=== PATIENT | male | born 1935 ===

== ENCOUNTER 2018-08-25 01:07 | Inpatient (IN) ==
[2018-08-25] MEDS ORDERED: SODIUM CHLORIDE 0.9% 1000ML 500 ML IV ONE (01:25)
[2018-08-25 01:44] LABS: Mean Corpuscular Hgb Conc 29.6 g/dL (32-36); Nucleated RBC % (auto) 2.7 %
[2018-08-25 01:58] LABS: INR 1.5 (0.9-1.1); Partial Thromboplastin Ratio 1.1; Partial Thromboplastin Time 30.5 Seconds (21.0-31.0); Prothrombin Time 14.6 Seconds (9.0-12.0)
[2018-08-25 02:03] LABS: Albumin Level 2.2 gm/dl (3.4-5.0); BUN Creatinine Ratio 28.1 (10-20); Bilirubin Direct 0.4 mg/dl (0-0.2); Calcium 8.1 mg/dl (8.5-10.1); Creatinine Clr Calc Pharmacy 26.5 ml/min; Est GFR (Non-African American) 25.1; Magnesium 2.7 mg/dl (1.8-2.4); Potassium 3.3 mmol/L (3.5-5.1)
[2018-08-25 02:14] LABS: ALC (manual) 0.76 K/uL (1.2-3.4); Anisocytosis Present; Basophils # (manual) 0.76 K/uL (0-0.2); Basophils % (manual) 5.2 %; Eosinophils # (manual) 0.76 K/uL (0-0.5); Eosinophils % (manual) 5.2 %; Hematocrit (blood only) 35.1 % (42-52); Hemoglobin 10.4 g/dL (14.0-18.0); Hypochromasia Present; Lymphocytes # (manual) 0.76 K/uL (1.2-3.4); Lymphocytes % (manual) 5.2 %; Mean Corpuscular Volume 74.7 fL (80-100); Monocytes # (manual) 0.76 K/uL (0.11-0.59); Monocytes % (manual) 5.2 %; Neutrophils % (manual) 79.2 %; Platelet Count 183 K/uL (130-400); Platelet Estimate Normal (Normal); RDW Coefficient of Variation 28.1 % (11.5-14.5); RDW Standard Deviation 77.2 fL (36.4-46.3); Schistocytes 1+; White Blood Count 14.66 K/uL (4.8-10.8)
[2018-08-25 02:19] LABS: Total Protein 7.3 gm/dl (6.4-8.2); Troponin I 0.899 ng/ml (0-0.045)
[2018-08-25] MEDS ORDERED: Heparin IV Standard *NO* Bolus IV ONE ×2 (02:31→08:37)
[2018-08-25] MEDS ORDERED: PIPERACILL/TAZOBAC CONSULT ACTIVE PRN ×2 (02:31→05:27)
[2018-08-25] MEDS ORDERED: VANCOMYCIN CONSULT ACTIVE PRN ×2 (02:31→05:27)
[2018-08-25] MEDS ORDERED: PIPERACILLIN/TAZOBACTAM 4.5 GM/120 ML BAG IV ONE (02:31)
[2018-08-25 02:32] LABS: Appearance Urine Clear (Clear); Bacteria Urine Automated Negative (Negative); Bilirubin Urine Negative (Negative); Blood Urine Negative (Negative); Color Urine Yellow; Glucose Urine UA Negative (Negative); Ketones Urine Negative (Negative); Leukocyte Esterase Urine Trace (Negative); Nitrite Urine Negative (Negative); Protein Urine Negative (Negative); RBC Urine Automated 0-4 /hpf (0-4); Specific Gravity Urine 1.014 (1.000-1.030); Urobilinogen Urine Negative (Negative)
[2018-08-25] MEDS ORDERED: VANCOMYCIN HCL 1,500 MG in SODIUM CHLORIDE 0.9% 500 ML IV SCH (02:45)
[2018-08-25] MEDS ORDERED: HEPARIN 25000 UNIT/500 ML D5W IV ONE (02:55)
[2018-08-25] MEDS ORDERED: ACETAMINOPHEN 325 MG TAB PO PRN ×2 (05:27)
[2018-08-25] MEDS ORDERED: TRAMADOL HCL 50 MG TABLET PO PRN (05:27)
[2018-08-25] MEDS ORDERED: MAGNESIUM HYDROXIDE SUSP 30 ML UDC PO PRN (05:27)
[2018-08-25] MEDS ORDERED: VANCOMYCIN HCL 1,000 MG in SODIUM CHLORIDE 0.9% 250 ML IV SCH (05:27)
[2018-08-25] MEDS ORDERED: ALUMINUM/MAGNESIUM SUSP 30 ML UDC PO PRN (05:27)
[2018-08-25] MEDS ORDERED: ALBUT/IPRATROP 3MG/0.5MG NEB 3 ML VIAL INH PRN (05:27)
[2018-08-25] MEDS ORDERED: HYDROCORTISONE ACETATE 25 MG SUPP PR PRN (05:27)
[2018-08-25] MEDS: RASPBERRY SYRUP 5 ML UDP PO SCH ×4 (06:53→23:55)
[2018-08-25] MEDS: VANCOMYCIN HCL 250 MG/5 ML SOLN PO SCH ×4 (06:53→23:55)
--- NOTE | 2018-08-25 07:01 | Emergency Department Note ---
Entered by Ling Trevino acting as a scribe for Randy Enriquez MD ED Provider Note Chief complaint: Leg swelling The patient is an 83 year old male presenting to the Emergency Department complaining of persistent leg swelling starting 1 day ago. EMS reports that the patient was complaining of diminished sensation in his left leg. They state that there is a wound on his left foot. They explained that the patient has been a patient at [facility] for rehabilitation of his left knee. The patient reports that his left leg is swollen. The HPI and ROS are limited due to AMS. ROS: The HPI and ROS are limited due to AMS. Past Medical History: Dysphagia, Bacterial enterocolitis, GERD, HTN, Prostate disorder, Dementia, Insomnia, Hypercholesteremia, Peripheral vascular disease. Past Surgical History: Unknown. Family History: Unknown. Social History: Feels safe at home. Home Medications: Acetaminophen 6590 mg PO, Eliquis 2.5 mg PO, Lipitor 80 mg PO, Aricept 5 mg PO, Finasteride 5 mg PO, Folic acid 1 mg PO, Lasix 80 mg PO, Anusol-HC 1 applic MT, Ipratropium albuterol 3 ml INH, Keppra 250 mg PO, Metoprolol tartrate 100 mg PO, Stress formula with Zinc 1 tab PO, Omeprazole 40 mg PO, Seroquel 12.5 mg PO, Senna-S 2 tab PO, Comfrey Saline 1 spray Intranasal. Tamsulosin 0.4 mg PO, Tramadol 50 mg PO, Vancomycin 250 mg PO. Allergies: NKDA Physical: Vitals: BP: 131/70, Pulse: 81, Respirations: 21, Temperature: 98.2, O2 Saturation: 100, Delivery: Nasal Cannula, 3 L/min. Exam: GENERAL: Patient is demented and in no acute distress. EYES: No scleral icterus, unremarkable pupils. ENT: Mucous membranes moist, no nasal congestion. NECK: No masses appreciated, no meningismus, trachea is midline. RESPIRATORY: No dyspnea. Clear to auscultation. No wheeze, no rhonchi. Decreased breath sounds in left lower lobe. Crackles throughout entire lung field. CARDIOVASCULAR: Regular rate and rhythm. No murmurs, rubs, gallops appreciated. GASTROINTESTINAL: Abdomen soft, non-tender, no peritonitis. Bowel sounds positive. No masses appreciated. : 4+ pitting edema of scrotum and penis. BACK: No midline tenderness, no CVA tenderness EXTREMITIES: Normal motion all extremities. Ulceration of left anterior ankle/upper foot. Blue discoloration of toes on left foot. Ulceration of left big toe with small amount of exudate. Greater than 5 seconds cap refill to top left foot. Good cap refill proximal to left ankle with intact popliteal pulses. NEUROLOGIC: Cranial nerves grossly intact. Demented. Awakens to commands. Uninte lligible speech. SKIN: No rash, no jaundice, no diaphoresis. ED Course: 0130: Prior Medical Record, Triage/Nursing Notes, Medications reviewed by Me. The patient was evaluated in room B2, and a complete history and physical examination were performed. 020: I discussed the patients case with Dr. Gruber Vascular surgeon who agrees to start the patient on Heparin. 0220: I discussed the patients case with Dr. Theodore [facility] hospitalist. He will evaluate the patient for further management. Labs reviewed and remarkable for elevated WBC, mild anemia, mild INR elevation, chronic renal insufficiency, modest lactate (2.0) Vital Signs reviewed and remarkable for mild hypoxia Imaging: X ray results are stated below per my interpretation: Chest: 1 view: Left elevated hemidiaphragm/effusion, right lower low infiltrate EKG: Per My Interpretation: indication sepsis: Sinus 81 bpm without ischemia nor ectopy. No previous for comparison. QTC 385 Consults: Hospitalist Blood pressure: Unremarkable Differentials: acute coronary syndrome, myocardial infarction, CVA, TIA, anemia, infection, pneumonia, UTI, pyelonephritis, poor nutrition, dehydration, electrolyte disturbance,hypoglycemia amongst other pathologies. Medical Decision Makin yr old male with dementia arrives for 6+ hours painful discolored left foot. Extensive PMH noted in transfer pprwrk from long-term. Ischemic foot on exam which looks better after warm blankets/elevation started. He is already on eliquis for PVD. He furthermore was found to have RLL infiltrate and elevated WBC for which started abx. Left leg ischemic with mostly just top/lateral left foot thus after discussing with Dr Bejarano will start IV heparin (no bolus as on Eliquis) and bring in for further monitoring and work up. With Cr level elevated I do not feel that CTA indicated. Reviewed with Hospitalist who will get arterial dopplers. He is breathing comfortably on NC O2. He is stable over his time here. No family here to discuss with. No history in system. Pt without history nor evidence of recent head injury. Impression: Ischemia of left lower extremity Pneumonia Critical Care Time: I have personally spent greater than 30 minutes of critical care time in the direct management of this patient. Left leg ischemia requiring IV Heparin infusion. This was a life/limb threatening event. This includes time spent evaluating patient, direct bedside care, chart review, placing orders, interpretation of diagnostic studies, discussion with consultants, as well as other required patient management activities. This 30 minutes is in excess of all separately billable procedures. Randy Enriquez MD The scribe's documentation has been prepared under my direction and personally reviewed by me in its entirety. I confirm that the note above accurately reflects all work, treatment, procedures, and medical decision making performed by me. Impression & Plan Ischemia of left lower extremity, Pneumonia Past Med/Surg History Medical History Peripheral vascular disease Hypercholesteremia Insomnia HTN (hypertension) Dementia Prostate disorder GERD (gastroesophageal reflux disease) Bacterial enterocolitis Dysphagia Social History Preferred Language: Uzbek Communication Ability: Impaired Tap Puller Required: No Beliefs That Will Affect Care: None Current Living Situation: Detention Feels Safe at Home: Yes Safety Concerns: Feels Safe At This Time Smoking Status: Unknown if ever smoked Results & Data Vital Signs Vital Signs - 24 hr 08/25/18 01:15 08/25/18 01:23 08/25/18 01:24 Temperature 36.8 C Temperature Source Oral Sepsis Recent Fever Within 48 Hours No Sepsis Action Taken by Nursing No Action Required Pulse Rate 82 80 81 Pulse Rate [Right Finger] Pulse Rate from SpO2 Sensor 81 80 Pulse Rhythm Regular Pulse Rhythm [Right Finger] Pulse Strength [Right Finger] Respiratory Rate 20 20 22 Respiratory Effort / Characteristics Non-Labored Respiratory Depth Normal Blood Pressure 116/79 116/79 Blood Pressure [Left Arm] Blood Pressure Mean 91 91 Blood Pressure Mean [Left Arm] Blood Pressure Position [Left Arm] Pulse Oximetry 99 98 98 Oxygen Delivery Method Nasal Cannula Oxygen Flow Rate 3 08/25/18 01:30 08/25/18 01:40 08/25/18 01:50 Temperature Temperature Source Sepsis Recent Fever Within 48 Hours Sepsis Action Taken by Nursing Pulse Rate 78 80 83 Pulse Rate [Right Finger] Pulse Rate from SpO2 Sensor 77 79 82 Pulse Rhythm Pulse Rhythm [Right Finger] Pulse Strength [Right Finger] Respiratory Rate 19 22 21 Respiratory Effort / Characteristics Respiratory Depth Blood Pressure Blood Pressure [Left Arm] Blood Pressure Mean Blood Pressure Mean [Left Arm] Blood Pressure Position [Left Arm] Pulse Oximetry 96 98 100 Oxygen Delivery Method Oxygen Flow Rate 08/25/18 02:00 08/25/18 02:10 08/25/18 02:18 Temperature Temperature Source Sepsis Recent Fever Within 48 Hours Sepsis Action Taken by Nursing Pulse Rate 87 83 80 Pulse Rate [Right Finger] Pulse Rate from SpO2 Sensor Pulse Rhythm Pulse Rhythm [Right Finger] Pulse Strength [Right Finger] Respiratory Rate 35 H 21 20 Respiratory Effort / Characteristics Respiratory Depth Blood Pressure 131/70 Blood Pressure [Left Arm] Blood Pressure Mean 90 Blood Pressure Mean [Left Arm] Blood Pressure Position [Left Arm] Pulse Oximetry Oxygen Delivery Method Oxygen Flow Rate 08/25/18 02:20 08/25/18 02:31 08/25/18 03:01 Temperature Temperature Source Sepsis Recent Fever Within 48 Hours Sepsis Action Taken by Nursing Pulse Rate 81 83 80 Pulse Rate [Right Finger] Pulse Rate from SpO2 Sensor Pulse Rhythm Pulse Rhythm [Right Finger] Pulse Strength [Right Finger] Respiratory Rate 21 21 22 Respiratory Effort / Characteristics Respiratory Depth Blood Pressure 134/77 125/91 Blood Pressure [Left Arm] Blood Pressure Mean 96 102 Blood Pressure Mean [Left Arm] Blood Pressure Position [Left Arm] Pulse Oximetry Oxygen Delivery Method Oxygen Flow Rate 08/25/18 03:31 08/25/18 04:01 08/25/18 04:38 Temperature Temperature Source Sepsis Recent Fever Within 48 Hours Sepsis Action Taken by Nursing Pulse Rate 79 79 75 Pulse Rate [Right Finger] Pulse Rate from SpO2 Sensor 78 Pulse Rhythm Pulse Rhythm [Right Finger] Pulse Strength [Right Finger] Respiratory Rate 19 19 18 Respiratory Effort / Characteristics Respiratory Depth Blood Pressure 131/72 132/78 125/82 Blood Pressure [Left Arm] Blood Pressure Mean 91 96 Blood Pressure Mean [Left Arm] Blood Pressure Position [Left Arm] Pulse Oximetry 97 96 95 Oxygen Delivery Method Nasal Cannula Nasal Cannula Nasal Cannula Oxygen Flow Rate 3 3 3 08/25/18 06:07 Temperature 36.7 C Temperature Source Oral Sepsis Recent Fever Within 48 Hours Sepsis Action Taken by Nursing Pulse Rate Pulse Rate [Right Finger] 82 Pulse Rate from SpO2 Sensor Pulse Rhythm Pulse Rhythm [Right Finger] Regular Pulse Strength [Right Finger] Normal Respiratory Rate 14 Respiratory Effort / Characteristics Respiratory Depth Blood Pressure Blood Pressure [Left Arm] 144/78 H Blood Pressure Mean Blood Pressure Mean [Left Arm] 100 Blood Pressure Position [Left Arm] Lying Pulse Oximetry 98 Oxygen Delivery Method Nasal Cannula Oxygen Flow Rate 2 Home Medications Current Medication List: was personally reviewed by me Laboratory Data Attestation: I reviewed the patient's lab results. Result diagrams: 08/25/18 01:33 08/25/18 01:33 Lab Results 08/25/18 08/25/18 08/25/18 Range/Units 01:33 01:33 01:33 WBC 14.66 H (4.8-10.8) K/uL RBC 4.70 (4.7-6.1) M/uL Hgb 10.4 L (14.0-18.0) g/dL Hct 35.1 L (42-52) % MCV 74.7 L (80-100) fL MCH 22.1 L (25-34) pg MCHC 29.6 L (32-36) g/dL RDW Std Deviation 77.2 H (36.4-46.3) fL RDW Coeff of Eulalia 28.1 H (11.5-14.5) % Plt Count 183 (130-400) K/uL Absolute Nucleated RBC 0.40 H (0-0) K/uL Nucleated RBC % (auto) 2.7 % Neutrophils % (Manual) 79.2 % Lymphocytes % (Manual) 5.2 % Monocytes % (Manual) 5.2 % Eosinophils % (Manual) 5.2 % Basophils % (Manual) 5.2 % Neutrophils # (Manual) 11.61 H (1.4-6.5) K/uL Total Absolute Neuts 11.61 H (1.4-6.5) K/uL Lymphocytes # (Manual) 0.76 L (1.2-3.4) K/uL Total Abs Lymphocytes 0.76 L (1.2-3.4) K/uL Monocytes # (Manual) 0.76 H (0.11-0.59) K/uL Eosinophils # (Manual) 0.76 H (0-0.5) K/uL Basophils # (Manual) 0.76 H (0-0.2) K/uL Platelet Estimate Normal (Normal) Hypochromasia Present Anisocytosis Present Schistocytes 1+ PT 14.6 H (9.0-12.0) Seconds INR 1.5 H (0.9-1.1) APTT 30.5 (21.0-31.0) Seconds PTT Ratio 1.1 Sodium 136 (136-145) mmol/L Potassium 3.3 L (3.5-5.1) mmol/L Chloride 98 (98-107) mmol/L Carbon Dioxide 34 H (21-32) mmol/L Anion Gap 4.0 (3-11) BUN 65 H (7-18) mg/dl Creatinine 2.32 H (0.6-1.4) mg/dl Est Cr Clr Drug Dosing 26.5 ml/min Est GFR ( Amer) 29.0 Est GFR (Non-Af Amer) 25.1 BUN/Creatinine Ratio 28.1 H (10-20) Glucose 108 H (70-99) mg/dl Lactate (0.4-2.0) mmol/L Calcium 8.1 L (8.5-10.1) mg/dl Magnesium 2.7 H (1.8-2.4) mg/dl Total Bilirubin 1.0 (0.2-1) mg/dl Direct Bilirubin 0.4 H (0-0.2) mg/dl AST 44 H (15-37) U/L ALT 18 (12-78) U/L Alkaline Phosphatase 147 H (45-117) U/L Troponin I 0.899 H* (0-0.045) ng/ml Total Protein 7.3 (6.4-8.2) gm/dl Albumin 2.2 L (3.4-5.0) gm/dl Urine Color Urine Appearance (Clear) Urine pH (4.5-7.5) Ur Specific [place] (1.000-1.030) Urine Protein (Negative) Urine Glucose (UA) (Negative) Urine Ketones (Negative) Urine Blood (Negative) Urine Nitrite (Negative) Urine Bilirubin (Negative) Urine Urobilinogen (Negative) Ur Leukocyte Esterase (Negative) Urine WBC (Auto) (0-5) /hpf Urine RBC (Auto) (0-4) /hpf U Hyaline Cast (Auto) (0-5) /lpf U Epithel Cells (Auto) (0-5) /lpf Urine Bacteria (Auto) (Negative) 08/25/18 08/25/18 08/25/18 Range/Units 01:33 02:20 06:45 WBC (4.8-10.8) K/uL RBC (4.7-6.1) M/uL Hgb (14.0-18.0) g/dL Hct (42-52) % MCV (80-100) fL MCH (25-34) pg MCHC (32-36) g/dL RDW Std Deviation (36.4-46.3) fL RDW Coeff of Eulalia (11.5-14.5) % Plt Count (130-400) K/uL Absolute Nucleated RBC (0-0) K/uL Nucleated RBC % (auto) % Neutrophils % (Manual) % Lymphocytes % (Manual) % Monocytes % (Manual) % Eosinophils % (Manual) % Basophils % (Manual) % Neutrophils # (Manual) (1.4-6.5) K/uL Total Absolute Neuts (1.4-6.5) K/uL Lymphocytes # (Manual) (1.2-3.4) K/uL Total Abs Lymphocytes (1.2-3.4) K/uL Monocytes # (Manual) (0.11-0.59) K/uL Eosinophils # (Manual) (0-0.5) K/uL Basophils # (Manual) (0-0.2) K/uL Platelet Estimate (Normal) Hypochromasia Anisocytosis Schistocytes PT (9.0-12.0) Seconds INR (0.9-1.1) APTT 43.3 H (21.0-31.0) Seconds PTT Ratio 1.6 Sodium (136-145) mmol/L Potassium (3.5-5.1) mmol/L Chloride (98-107) mmol/L Carbon Dioxide (21-32) mmol/L Anion Gap (3-11) BUN (7-18) mg/dl Creatinine (0.6-1.4) mg/dl Est Cr Clr Drug Dosing ml/min Est GFR ( Amer) Est GFR (Non-Af Amer) BUN/Creatinine Ratio (10-20) Glucose (70-99) mg/dl Lactate 2.0 (0.4-2.0) mmol/L Calcium (8.5-10.1) mg/dl Magnesium (1.8-2.4) mg/dl Total Bilirubin (0.2-1) mg/dl Direct Bilirubin (0-0.2) mg/dl AST (15-37) U/L ALT (12-78) U/L Alkaline Phosphatase (45-117) U/L Troponin I (0-0.045) ng/ml Total Protein (6.4-8.2) gm/dl Albumin (3.4-5.0) gm/dl Urine Color Yellow Urine Appearance Clear (Clear) Urine pH 5.0 (4.5-7.5) Ur Specific [place] 1.014 (1.000-1.030) Urine Protein Negative (Negative) Urine Glucose (UA) Negative (Negative) Urine Ketones Negative (Negative) Urine Blood Negative (Negative) Urine Nitrite Negative (Negative) Urine Bilirubin Negative (Negative) Urine Urobilinogen Negative (Negative) Ur Leukocyte Esterase Trace H (Negative) Urine WBC (Auto) 1-5 (0-5) /hpf Urine RBC (Auto) 0-4 (0-4) /hpf U Hyaline Cast (Auto) 1-5 (0-5) /lpf U Epithel Cells (Auto) 10-20 H (0-5) /lpf Urine Bacteria (Auto) Negative (Negative) Administered Medications Raspberry (Raspberry) 5 ml PO Q6 [facility] Stop: 09/08/18 05:59 Last Admin: 08/25/18 06:53 Dose: 5 ml Documented by: [id number] Vancomycin HCl (Vancomycin Hcl) 250 mg PO Q6 [facility] Stop: 09/04/18 05:59 Last Admin: 08/25/18 06:53 Dose: 250 mg Documented by: [id number] Discontinued Medications Heparin Sodium/Dextrose () 1 ea IV ONE ONE; Protocol Stop: 08/25/18 02:32 Last Admin: 08/25/18 03:57 Dose: Not Given Documented by: [id number] Heparin Sodium/Dextrose (Heparin Sodium/Dextrose) Confirm Administered Dose 25,000 units IV .STK-MED ONE Stop: 08/25/18 02:56 Last Admin: 08/25/18 03:16 Dose: 1,500 units Documented by: [id number] Cosigned by: [id number] Sodium Chloride (Nss 1000ml) 500 mls @ 999 mls/hr IV .Q31M ONE Stop: 08/25/18 01:55 Last Infusion: 08/25/18 02:17 Dose: 0 mls/hr Documented by: [id number] Admin: 08/25/18 01:41 Dose: 999 mls/hr Documented by: [id number] Piperacillin Sod/Tazobactam Sod (Zosyn) 4.5 gm in 120 mls @ 240 mls/hr IV NOW ONE Stop: 08/25/18 03:00 Last Infusion: 08/25/18 03:56 Dose: 0 mls/hr Documented by: [id number] Admin: 08/25/18 03:16 Dose: 240 mls/hr Documented by: [id number] Vancomycin HCl 1,500 mg/ (Sodium Chloride) 530 mls @ 200 mls/hr IV UD KASHIF; Protocol Stop: 08/27/18 02:44 Last Admin: 08/25/18 03:15 Dose: 200 mls/hr Documented by: [id number] Blood Pressure Blood Pressure Findings: Normal blood pressure Blood Pressure Disposition: further management by hospitalist Discharge Plan Visit Data *Final* Discharge Date/Time: 08/25/18 04:38 Chief Complaint: Swelling/Edema to Extremity Stated Complaint: SWOLLEN LEG/GENITALS ED Provider: Randy Enriquez Discharge Problem: Ischemia of left lower extremity, Pneumonia Patient Disposition: Admitted As Inpatient Discharge Instructions Interventions: ED Discharge Assessment Last Done: 08/25/18 04:38 Discharge Problem: Pneumonia Qualifiers: Pneumonia type: due to unspecified organism Laterality: right Lung location: lower lobe of lung Qualified Code(s): J18.1 - Lobar pneumonia, unspecified organism The scribe's documentation has been prepared under my direction and personally reviewed by me in its entirety. I confirm that the note above accurately reflec ts all work, treatment, procedures, and medical decision making performed by me.
[2018-08-25 07:02] LABS: Partial Thromboplastin Ratio 1.6; Partial Thromboplastin Time 43.3 Seconds (21.0-31.0)
--- NOTE | 2018-08-25 07:46 | History & Physical Report ---
Date of Service August 25, 2018 Assessment & Plan (1) Ischemia of left lower extremity: Peripheral arterial disease/presumptive ischemia of left lower extremity/cellulitis left lower extremity- Place on vancomycin IV and Zosyn IV. Order lower extremity arterial Dopplers. We will hold Eliquis, and start heparin infusion, per request of Dr. Bejarano, who will be consulted. Consult infectious disease. Present on Admission?: Yes (2) Cellulitis of left lower extremity: As above. Present on Admission?: Yes (3) Peripheral vascular disease: As above. Present on Admission?: Yes (4) Pneumonia: Pneumonia/pleural effusion- Treat with antibiotics as above. Present on Admission?: Yes (5) NSTEMI (non-ST elevated myocardial infarction): Troponin on admission was 0.899. No acute EKG changes. Order complete ECHO. Supply demand mismatch vs. primary process. Consult Cardiology. Present on Admission?: Yes (6) Hypercholesteremia: Continue atorvastatin 80 mg at bedtime Present on Admission?: Yes (7) Dementia: Continue Seroquel, melatonin, Keppra and Aricept. Present on Admission?: Yes (8) HTN (hypertension): Hypertension/CHF/venous insufficiency- Change furosemide 80 mg p.o. twice daily to albumin with furosemide twice daily. Present on Admission?: Yes (9) GERD (gastroesophageal reflux disease): On omeprazole 40 mg p.o. daily as outpatient, continue or change to generic equivalent. Present on Admission?: Yes (10) C. difficile colitis: Patient has been on vancomycin 250 mg p.o. 4 times daily, and will be continued. Present on Admission?: Yes History of Present Illness Chief Complaint: The patient presents to the emergency department with shortness of breath, worsening lower extremity swelling that began a few days ago. EMS reports that the patient had decreased sensation of left lower extremity, but there is a wound on his left foot, and is red and painful. Primary Care Provider: Page Richardsmirian The patient is an 83-year-old male, presently residing at [facility] for rehab of his left knee, when he was found to have swelling of lower extremities, with redness and discomfort associated with a wound of left lower extremity. The patient is not able to contribute to his HPI or review of systems, due to altered mental status. Allergies Allergy/AdvReac Type Severity Reaction Status Date / Time No Known Allergies Allergy Unverified 08/25/18 02:56 Home Medications Home Medications Medication Instructions Recorded Confirmed Type Saccharomyces boulardii [Probiotic 250 mg PO DAILY 08/25/18 08/25/18 History (S.boulardii)] acetaminophen 650 mg PO Q6H PRN 08/25/18 08/25/18 History acetaminophen 650 mg PO Q6H PRN MDD 3G/24HRS 08/25/18 08/25/18 History apixaban [Eliquis] 2.5 mg PO BID 08/25/18 08/25/18 History atorvastatin [Lipitor] 80 mg PO HS 08/25/18 08/25/18 History donepezil [Aricept] 5 mg PO HS 08/25/18 08/25/18 History finasteride 5 mg PO DAILY 08/25/18 08/25/18 History folic acid 1 mg PO DAILY 08/25/18 08/25/18 History furosemide [Lasix] 80 mg PO BID 08/25/18 08/25/18 History hydrocortisone [Anusol-HC] 1 applic [place] Q12 PRN 08/25/18 08/25/18 History hydrocortisone acetate [Anusol-HC] 25 mg [place] Q12 PRN 08/25/18 08/25/18 History ipratropium-albuterol 3 ml INHALATION Q6 PRN 08/25/18 08/25/18 History levetiracetam [Keppra] 250 mg PO BID 08/25/18 08/25/18 History melatonin 3 mg PO HS 08/25/18 08/25/18 History metoprolol tartrate 100 mg PO BID 08/25/18 08/25/18 History multivit,stress formula-zinc 1 tab PO DAILY 08/25/18 08/25/18 History [Stress Formula with Zinc] omeprazole 40 mg PO DAILY 08/25/18 08/25/18 History protein hydrolysate,milk [Liquid 30 ml PO BID 08/25/18 08/25/18 History Protein Fortifier] quetiapine [Seroquel] 12.5 mg PO HS 08/25/18 08/25/18 History sennosides-docusate sodium 2 tab PO . 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 Physical Exam Physical Exam: The patient is lethargic, normocephalic and atraumatic, lying in bed and in no acute distress. HEENT--PERRL, EOMI, mucous membranes and oropharynx dry. Neck--supple. No JVD. No bruits. Thyroid normal, trachea midline, no adenopathy. Heart--normal S1 and S2. No murmurs, rubs or gallops. Lungs--decreased breath sounds throughout. Abdomen--normal bowel sounds and soft. Nontender. Nondistended. Extremities--diminished pulses bilaterally. Dermatologic--wound at the base of the left leg, with erythema involving foot and entire tibial shaft up to anterior tibial tuberosity Neurologic--limited exam Rheumatologic--limited due to pain. Psychiatric--lethargic and confused. Results & Data Vital Signs (Past 12 Hours) Vital Signs Temp Pulse Pulse Resp BP BP Pulse Ox 08/25/18 07:04 97.9 F 84 20 150/80 H 98 08/25/18 06:07 98.1 F 82 14 144/78 H 98 08/25/18 04:38 75 18 125/82 95 08/25/18 04:01 79 19 132/78 96 08/25/18 03:31 79 19 131/72 97 08/25/18 03:01 80 22 125/91 08/25/18 02:31 83 21 134/77 08/25/18 02:20 81 21 05/05/19 02:18 80 20 131/70 08/25/18 02:10 83 21 08/25/18 02:00 87 35 H 08/25/18 01:50 83 21 100 08/25/18 01:40 80 22 98 08/25/18 01:30 78 19 96 08/25/18 01:24 81 22 98 08/25/18 01:23 98.2 F 80 20 116/79 98 08/25/18 01:15 82 20 116/79 99 Laboratory Results Laboratory Results WBC 14.66 K/uL (4.8-10.8) H 08/25/18 01:33 RBC 4.70 M/uL (4.7-6.1) 08/25/18 01:33 Hgb 10.4 g/dL (14.0-18.0) L 08/25/18 01:33 Hct 35.1 % (42-52) L 08/25/18 01:33 MCV 74.7 fL (80-100) L 08/25/18 01:33 MCH 22.1 pg (25-34) L 08/25/18 01:33 MCHC 29.6 g/dL (32-36) L 08/25/18 01:33 RDW Std Deviation 77.2 fL (36.4-46.3) H 08/25/18 01:33 RDW Coeff of Eul[place] 28.1 % (11.5-14.5) H 08/25/18 01:33 Plt Count 183 K/uL (130-400) 08/25/18 01:33 Absolute Nucleated RBC 0.40 K/uL (0-0) H 08/25/18 01:33 Nucleated RBC % (auto) 2.7 % 08/25/18 01:33 Neutrophils % (Manual) 79.2 % 08/25/18 01:33 Lymphocytes % (Manual) 5.2 % 08/25/18 01:33 Monocytes % (Manual) 5.2 % 08/25/18 01:33 Eosinophils % (Manual) 5.2 % 08/25/18 01:33 Basophils % (Manual) 5.2 % 08/25/18 01:33 Neutrophils # (Manual) 11.61 K/uL (1.4-6.5) H 08/25/18 01:33 Total Absolute Neuts 11.61 K/uL (1.4-6.5) H 08/25/18 01:33 Lymphocytes # (Manual) 0.76 K/uL (1.2-3.4) L 08/25/18 01:33 Total Abs Lymphocytes 0.76 K/uL (1.2-3.4) L 08/25/18 01:33 Monocytes # (Manual) 0.76 K/uL (0.11-0.59) H 08/25/18 01:33 Eosinophils # (Manual) 0.76 K/uL (0-0.5) H 08/25/18 01:33 Basophils # (Manual) 0.76 K/uL (0-0.2) H 08/25/18 01:33 Platelet Estimate Normal (Normal) 08/25/18 01:33 Hypochromasia Present 08/25/18 01:33 Anisocytosis Present 08/25/18 01:33 Schistocytes 1+ 08/25/18 01:33 PT 14.6 Seconds (9.0-12.0) H 08/25/18 01:33 INR 1.5 (0.9-1.1) H 08/25/18 01:33 APTT 43.3 Seconds (21.0-31.0) H 08/25/18 06:45 PTT Ratio 1.6 08/25/18 06:45 Sodium 136 mmol/L (136-145) 08/25/18 01:33 Potassium 3.3 mmol/L (3.5-5.1) L 08/25/18 01:33 Chloride 98 mmol/L (98-107) 08/25/18 01:33 Carbon Dioxide 34 mmol/L (21-32) H 08/25/18 01:33 Anion Gap 4.0 (3-11) 08/25/18 01:33 BUN 65 mg/dl (7-18) H 08/25/18 01:33 Creatinine 2.32 mg/dl (0.6-1.4) H 08/25/18 01:33 Est Cr Clr Drug Dosing 26.5 ml/min 08/25/18 01:33 Est GFR ( Amer) 29.0 08/25/18 01:33 Est GFR (Non-Af Amer) 25.1 08/25/18 01:33 BUN/Creatinine Ratio 28.1 (10-20) H 08/25/18 01:33 Glucose 108 mg/dl (70-99) H 08/25/18 01:33 Lactate 2.0 mmol/L (0.4-2.0) 08/25/18 01:33 Calcium 8.1 mg/dl (8.5-10.1) L 08/25/18 01:33 Magnesium 2.7 mg/dl (1.8-2.4) H 08/25/18 01:33 Total Bilirubin 1.0 mg/dl (0.2-1) 08/25/18 01:33 Direct Bilirubin 0.4 mg/dl (0-0.2) H 08/25/18 01:33 AST 44 U/L (15-37) H 08/25/18 01:33 ALT 18 U/L (12-78) 08/25/18 01:33 Alkaline Phosphatase 147 U/L (45-117) H 08/25/18 01:33 Troponin I 0.899 ng/ml (0-0.045) H* 08/25/18 01:33 Total Protein 7.3 gm/dl (6.4-8.2) 08/25/18 01:33 Albumin 2.2 gm/dl (3.4-5.0) L 08/25/18 01:33 Urine Color Yellow 08/25/18 02:20 Urine Appearance Clear (Clear) 08/25/18 02:20 Urine pH 5.0 (4.5-7.5) 08/25/18 02:20 Ur Specific [place] 1.014 (1.000-1.030) 08/25/18 02:20 Urine Protein Negative (Negative) 08/25/18 02:20 Urine Glucose (UA) Negative (Negative) 08/25/18 02:20 Urine Ketones Negative (Negative) 08/25/18 02:20 Urine Blood Negative (Negative) 08/25/18 02:20 Urine Nitrite Negative (Negative) 08/25/18 02:20 Urine Bilirubin Negative (Negative) 08/25/18 02:20 Urine Urobilinogen Negative (Negative) 08/25/18 02:20 Ur Leukocyte Esterase Trace (Negative) H 08/25/18 02:20 Urine WBC (Auto) 1-5 /hpf (0-5) 08/25/18 02:20 Urine RBC (Auto) 0-4 /hpf (0-4) 08/25/18 02:20 U Hyaline Cast (Auto) 1-5 /lpf (0-5) 08/25/18 02:20 U Epithel Cells (Auto) 10-20 /lpf (0-5) H 08/25/18 02:20 Urine Bacteria (Auto) Negative (Negative) 08/25/18 02:20 Code Status & VTE Plan Code Status DNR VTE Prophylaxis Plan VTE Prophylaxis will be ordered: Yes (1) Pneumonia Laterality: right Lung location: lower lobe of lung Pneumonia type: due to unspecified organism Qualified Code(s): J18.1 - Lobar pneumonia, unspecified organism
--- NOTE | 2018-08-25 07:57 | XRay Report ---
LEFT ANKLE 3 VIEWS CLINICAL HISTORY: Left anterior ankle wound. FINDINGS: 3 views of the left ankle are obtained. No prior studies are available for comparison at th e time of dictation. The skeletal structures are osteopenic. No fracture is seen. The ankle mortise i s intact. Moderate arthritic changes seen at the tibiotalar articulation. Pes planus is suspected. Th ere is no bony erosion or periostitis. There are dorsal and plantar calcaneal enthesophytes. There is no ankle joint effusion. Soft tissue edema is present around the ankle. Subcutaneous gas is seen ant eriorly and suggests wound. There is atherosclerotic calcification of the regional arteries. No radio dense foreign body is identified. IMPRESSION: 1. No acute bony abnormality is identified. 2. Soft tissue edema is identified with an anterior wound. 3. No radiodense foreign body is seen. Electronically signed by: Ezequiel Prince M.D. 08/25/2018 7:55 AM
[2018-08-25] MEDS: PANTOprazole 40 MG TAB PO SCH (08:09)
[2018-08-25] MEDS: FINASTERIDE 5 MG TAB PO SCH (08:09)
[2018-08-25] MEDS: FOLIC ACID 1 MG TAB PO SCH (08:09)
[2018-08-25] MEDS: levETIRAcetam 250 MG TAB PO SCH ×2 (08:09→20:43)
[2018-08-25] MEDS: CEROVITE ADV FORMULA TAB PO SCH (08:09)
--- NOTE | 2018-08-25 08:33 | XRay Report ---
SINGLE VIEW CHEST CLINICAL HISTORY: Lower extremity ischemia. FINDINGS: An AP, portable, upright chest radiograph is obtained. No prior studies are available for c omparison at the time of dictation. The examination is significantly degraded by portable technique a nd patient rotation. The heart is enlarged and there is atherosclerotic calcification of the thoraci c aorta. There is mild pulmonary vascular congestion. Calcified mediastinal and hilar nodes are noted . There are small pleural effusions with dense bibasilar consolidation, left greater than right. No p neumothorax is seen. The skeletal structures are osteopenic. The bony thorax is grossly intact. IMPRESSION: 1. Cardiomegaly with mild pulmonary vascular congestion. 2. There are small pleural effusions with dense bibasilar airspace consolidation, left greater than r ight. The appearance suggests pneumonia/aspiration pneumonitis. Clinical correlation will be required and radiographic follow-up to resolution is recommended. Electronically signed by: Ezequiel Prince M.D. 08/25/2018 8:32 AM
[2018-08-25] MEDS ORDERED: POTASSIUM CHLORIDE 20 MEQ TABCR PO STA (08:34)
[2018-08-25] MEDS ORDERED: METOPROLOL TARTRATE 50 MG TAB PO SCH (09:00)
[2018-08-25] MEDS: ALBUMIN 25% 50 ML with FUROSEMIDE 40 MG IV SCH ×2 (09:15→20:40)
[2018-08-25] MEDS: PIPERACILLIN/TAZOBACTAM 3.375 GM in DEXTROSE 5% 100 ML IV SCH ×3 (09:15→23:54)
[2018-08-25] MEDS: Heparin Adult STANDARD Wt-Based Dextrose 5% 25,000 units/500 mL IV SCH ×2 (09:17→20:44)
[2018-08-25] MEDS: SODIUM CHLORIDE 0.65% NA SOLN 45 ML (OCEAN) SCH (09:41)
--- NOTE | 2018-08-25 09:49 | Consultation ---
Date of Consultation August 25, 2018 Assessment & Plan (1) Ischemia of left lower extremity: This patient has severe ischemia in the left foot. This was confirmed with noninvasives which shows infrapopliteal artery occlusions. At this point with his possible STEMI he is not a good candidate for operative intervention. Endovascular approach is also guarded being that he is in chronic renal insufficiency. To intervene would possibly cause him to require dialysis.\ I discussed this with his son Jairon. At this point we decided on no intervention either endovascular or open. He does realize that he may end up with an amputation of his left lower extremity. Thank you very much for letting us participate in the care of this patient. History of Present Illness Reason for Consultation: Right foot ischemia Attending Physician: Meagan Claros MD History of Present Illness this is an 83-year-old male who presented with ischemic left foot. He also had increased troponins at the time of admission. He does claim that he was walking prior to his admission to the hospital. He claims that the pain is been going on for some time. It does keep him awake at night. He is not sure if he had any procedures done on the arteries of the left leg in the past. Denies any symptoms of the right lower extremity. Allergies Allergy/AdvReac Type Severity Reaction Status Date / Time No Known Allergies Allergy Unverified 08/25/18 02:56 Home Medications Home Medications Medication Instructions Recorded Confirmed Type Saccharomyces boulardii [Probiotic 250 mg PO DAILY 08/25/18 08/25/18 History (S.boulardii)] acetaminophen 650 mg PO Q6H PRN 08/25/18 08/25/18 History acetaminophen 650 mg PO Q6H PRN MDD 3G/24HRS 08/25/18 08/25/18 History apixaban [Eliquis] 2.5 mg PO BID 08/25/18 08/25/18 History atorvastatin [Lipitor] 80 mg PO HS 08/25/18 08/25/18 History donepezil [Aricept] 5 mg PO HS 08/25/18 08/25/18 History finasteride 5 mg PO DAILY 08/25/18 08/25/18 History folic acid 1 mg PO DAILY 08/25/18 08/25/18 History furosemide [Lasix] 80 mg PO BID 08/25/18 08/25/18 History hydrocortisone [Anusol-HC] 1 applic [place] Q12 PRN 08/25/18 08/25/18 History hydrocortisone acetate [Anusol-HC] 25 mg [place] Q12 PRN 08/25/18 08/25/18 History ipratropium-albuterol 3 ml INHALATION Q6 PRN 08/25/18 08/25/18 History levetiracetam [Keppra] 250 mg PO BID 08/25/18 08/25/18 History melatonin 3 mg PO HS 08/25/18 08/25/18 History metoprolol tartrate 100 mg PO BID 08/25/18 08/25/18 History multivit,stress formula-zinc 1 tab PO DAILY 08/25/18 08/25/18 History [Stress Formula with Zinc] omeprazole 40 mg PO DAILY 08/25/18 08/25/18 History protein hydrolysate,milk [Liquid 30 ml PO BID 08/25/18 08/25/18 History Protein Fortifier] quetiapine [Seroquel] 12.5 mg PO HS 08/25/18 08/25/18 History sennosides-docusate sodium 2 tab PO . 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 Physical Exam Constitutional: WD/WN, vitals as above Respiratory: normal respiratory effort, lungs clear to auscultation Cardiovascular: Rate/Rhythm: regular rate and regular rhythm Vessels: femoral pulses present (Bilateral), posterior tibial pulses present (Not palpable) and dorsalis pedis pulses present (Doppler on the right nonpalpable on the left) Extremities: normal capillary refill ( markedly prolonged on the left ) Gastrointestinal (Abdomen): Inspection/Auscultation: abdomen normal to inspection Percussion/Palpation: no pulsatile mass Musculoskeletal: Extremities: + cyanosis (Left foot) Ulceration present on the dorsum of the left foot. Neurologic: awake Motor/Sensory: normal movement Psychiatric: Orientation: alert; + not oriented x 3 Results & Data Vital Signs (Past 12 Hours) Vital Signs Temp Pulse Pulse Resp BP BP Pulse Ox 08/25/18 07:04 36.6 C 84 20 150/80 H 98 08/25/18 06:07 36.7 C 82 14 144/78 H 98 08/25/18 04:38 75 18 125/82 95 08/25/18 04:01 79 19 132/78 96 08/25/18 03:31 79 19 131/72 97 08/25/18 03:01 80 22 125/91 08/25/18 02:31 83 21 134/77 08/25/18 02:20 81 21 08/25/18 02:18 80 20 131/70 08/25/18 02:10 83 21 08/25/18 02:00 87 35 H 08/25/18 01:50 83 21 100 08/25/18 01:40 80 22 98 08/25/18 01:30 78 19 96 08/25/18 01:24 81 22 98 08/25/18 01:23 36.8 C 80 20 116/79 98 08/25/18 01:15 82 20 116/79 99
--- NOTE | 2018-08-25 10:07 | Ultrasound Report ---
ULTRASOUND BILATERAL LOWER EXTREMITY ARTERIAL CLINICAL HISTORY: Lower extremities cellulitis. COMPARISON STUDY: No priors. TECHNIQUE: Real-time, grayscale, and color Doppler sonography of the arteries of the right and left l ower extremity was performed from the inguinal crease to the foot. Ankle-brachial indices were not pe rformed due to lack of patient cooperation. FINDINGS: Cardiac pulsations appear irregularly irregular suggesting arrhythmia. Right lower extremity: Mild atherosclerotic plaque is identified. The right common femoral artery is patent and demonstrates triphasic arterial waveforms. Velocities in the right common femoral artery m easure up to 58 cm/s. There are triphasic arterial waveforms throughout the right superficial femoral artery with velocities measuring up to 81 cm/s. The profundus femoris artery is patent with velociti es measuring up to 38 cm/s. There are triphasic arterial waveforms in the popliteal artery with veloc ities measuring up to 96 cm/s. Atherosclerotic plaque is noted throughout the calf arteries. There is three-vessel runoff to the foot. Velocities within the calf arteries measure up to 80 cm/s. The dors alda pedis artery is patent with velocities measuring up to 105 cm/s. Left lower extremity: Mild sclerotic plaque is identified. The common femoral artery is patent with t riphasic waveforms and velocities measuring up to 73 cm/s. The profunda femoris arteries patent with velocities measuring up to 62 cm/s. There are triphasic waveforms seen throughout the superficial fem oral artery with velocities measuring up to 74 cm/s. The popliteal artery is patent and demonstrates triphasic arterial waveforms. Velocities in the popliteal artery measure up to 58 cm/s. Atherosclerot ic plaque an irregularity is seen throughout the calf arteries. There is thrombosis of the posterior tibial artery. The peroneal artery appears patent with velocities measuring up to 56 cm/s. The anteri or tibial artery is patent with velocities measuring up to 61 cm/s. The majority of the dorsalis pedi s artery is thrombosed. A portion of the dorsalis pedis artery appears to demonstrate retrograde flow . IMPRESSION: 1. There is no sonographic evidence of high-grade stenosis or focal vessel cut off seen throughout th e arteries of the right lower extremity. 2. 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 3. Atherosclerotic plaque is seen throughout the calf vessels bilaterally. 4. Cardiac pulsations appear irregularly irregular suggesting arrhythmia. Clinical and EKG correlatio n will be required. Electronically signed by: Ezequiel Prince M.D. 08/25/2018 10:06 AM
--- NOTE | 2018-08-25 12:37 | Cardiology Consultation ---
Date of Consultation August 25, 2018 Assessment & Plan (1) Elevated troponin: He has a minimally elevated troponin, I am almost certain that he has coronary artery disease and this probably represents demand ischemia. There is no evidence this is an acute myocardial infarction (either non-ST segment elevation or ST segment elevation) either by electrocardiographic criteria or the enzyme pattern. I agree with trending troponins but at this point I would not consider invasive evaluation. (2) CHF (congestive heart failure): He presented in congestive heart failure, his BNP is elevated, he has pleural and pericardial effusions and edema. I would recommend diuresis. I do not think this is new. (3) Ischemic cardiomyopathy: Based on his echocardiogram I believe he has an ischemic cardiomyopathy. His ejection fraction is reduced and he has wall motion abnormalities consistent with prior infarction. I do not know if this is known before but he is on good doses of metoprolol, he is on metoprolol tartrate and it would be better to have him on metoprolol succinate but that is a minor change and I would make it when he goes home. He probably should be on an NAVEED inhibitor due to his kidneys. (4) CRI (chronic renal insufficiency): I suspect he has chronic renal insufficiency although all I know is that recently his creatinine is elevated. (5) Pericardial effusion: He has a small pericardial effusion, it is certainly not enough to tap and it is most likely due to congestive heart failure in conjunction with his pleural effusions. I would treat this with diuresis. There is no evidence that he has pericarditis although that is a distant possibility. It is not causing hemodynamic abnormalities. History of Present Illness Reason for Consultation: Elevated troponin Attending Physician: Meagan Claros MD History of Present Illness This is an 83-year-old gentleman who is a resident of [facility] and noted leg swelling for the past day or so, he also noted a wound on his left leg and diminished sensation in his left leg. He came into the emergency room for these findings and was noted to have a slightly elevated troponin and an elevated BNP. He is not a good historian at all and does not recall having been told that he has any trouble with his heart. At the moment he is not having any GI complaints. Allergies Allergy/AdvReac Type Severity Reaction Status Date / Time No Known Allergies Allergy Unverified 08/25/18 02:56 Home Medications Home Medications Medication Instructions Recorded Confirmed Type Saccharomyces boulardii [Probiotic 250 mg PO DAILY 08/25/18 08/25/18 History (S.boulardii)] acetaminophen 650 mg PO Q6H PRN 08/25/18 08/25/18 History acetaminophen 650 mg PO Q6H PRN MDD 3G/24HRS 08/25/18 08/25/18 History apixaban [Eliquis] 2.5 mg PO BID 08/25/18 08/25/18 History atorvastatin [Lipitor] 80 mg PO HS 08/25/18 08/25/18 History donepezil [Aricept] 5 mg PO HS 08/25/18 08/25/18 History finasteride 5 mg PO DAILY 08/25/18 08/25/18 History folic acid 1 mg PO DAILY 08/25/18 08/25/18 History furosemide [Lasix] 80 mg PO BID 08/25/18 08/25/18 History hydrocortisone [Anusol-HC] 1 applic [place] Q12 PRN 08/25/18 08/25/18 History hydrocortisone acetate [Anusol-HC] 25 mg [place] Q12 PRN 08/25/18 08/25/18 History ipratropium-albuterol 3 ml INHALATION Q6 PRN 08/25/18 08/25/18 History levetiracetam [Keppra] 250 mg PO BID 08/25/18 08/25/18 History melatonin 3 mg PO HS 08/25/18 08/25/18 History metoprolol tartrate 100 mg PO BID 08/25/18 08/25/18 History multivit,stress formula-zinc 1 tab PO DAILY 08/25/18 08/25/18 History [Stress Formula with Zinc] omeprazole 40 mg PO DAILY 08/25/18 08/25/18 History protein hydrolysate,milk [Liquid 30 ml PO BID 08/25/18 08/25/18 History Protein Fortifier] quetiapine [Seroquel] 12.5 mg PO HS 08/25/18 08/25/18 History sennosides-docusate sodium 2 tab PO . 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 Oriented to person only. HEENT: Unremarkable Neck: No jugular venous distention, carotid pulses are normal and equal bilaterally without bruits. Pulmonary: Basilar crackles bilaterally. Cardiac: Regular rhythm with no murmur, gallop or rub. Abdomen: Soft, nontender with normal bowel sounds. Extremities: +1 edema. Distal pulses absent. Neurologic: No focal findings. Gait was not tested. Skin: No rash, ecchymoses or petechiae except in his feet. Results & Data Vital Signs (Past 12 Hours) Vital Signs Temp Pulse Pulse Resp BP BP BP 08/25/18 11:48 37.2 C 85 19 134/86 08/25/18 07:04 36.6 C 84 20 150/80 H 08/25/18 06:07 36.7 C 82 14 144/78 H 08/25/18 04:38 75 18 125/82 08/25/18 04:01 79 19 132/78 08/25/18 03:31 79 19 131/72 08/25/18 03:01 80 22 125/91 08/25/18 02:31 83 21 134/77 08/25/18 02:20 81 21 08/25/18 02:18 80 20 131/70 08/25/18 02:10 83 21 08/25/18 02:00 87 35 H 08/25/18 01:50 83 21 08/25/18 01:40 80 22 08/25/18 01:30 78 19 08/25/18 01:24 81 22 08/25/18 01:23 36.8 C 80 20 116/79 08/25/18 01:15 82 20 116/79 Pulse Ox 08/25/18 11:48 89 L 08/25/18 07:04 98 08/25/18 06:07 98 08/25/18 04:38 95 08/25/18 04:01 96 08/25/18 03:31 97 08/25/18 03:01 08/25/18 02:31 08/25/18 02:20 08/25/18 02:18 08/25/18 02:10 08/25/18 02:00 08/25/18 01:50 100 08/25/18 01:40 98 08/25/18 01:30 96 08/25/18 01:24 98 08/25/18 01:23 98 08/25/18 01:15 99 Diagnostic Findings His electrocardiogram on arrival demonstrates sinus rhythm at 81 bpm, diffuse ST-T abnormalities Telemetry: Sinus rhythm and sinus tachycardia, no significant abnormality Echocardiogram: Reviewed briefly, it is clearly not normal, he does have a reduced left ventricular ejection fraction and he has wall motion abnormalities as well as a small pericardial effusion and a pleural effusion is also visible. No comparison. Chest x-ray: Cardiomegaly, pulmonary vascular congestion, pleural effusions
[2018-08-25] MEDS ORDERED: VANCOMYCIN HCL 750 MG in SODIUM CHLORIDE 0.9% 250 ML IV ONE (13:15)
--- NOTE | 2018-08-25 13:15 | Pharmacy Report ---
Pharmacy Abx Initial Consult - Date of Service August 25, 2018 - Pharmacy Dosing Scope Date of Consult: 08/25/18 Consultation requested by: Dr. Herrera Pharmacy is consulted to initiate Vancomycin and Zosyn IV/PO dosing therapy, order appropriate labs and adjust drug dose/frequency. - Subjective The patient is a 83 year old M admitted on 08/25/18 04:03. - Objective Height: 6 ft Weight: 91.8 kg Vital Signs (Past 12hrs): Vital Signs Temp Pulse Pulse Resp BP BP BP 08/25/18 11:48 37.2 C 85 19 134/86 08/25/18 07:04 36.6 C 84 20 150/80 H 08/25/18 06:07 36.7 C 82 14 144/78 H 08/25/18 04:38 75 18 125/82 08/25/18 04:01 79 19 132/78 08/25/18 03:31 79 19 131/72 08/25/18 03:01 80 22 125/91 08/25/18 02:31 83 21 134/77 08/25/18 02:20 81 21 08/25/18 02:18 80 20 131/70 08/25/18 02:10 83 21 08/25/18 02:00 87 35 H 08/25/18 01:50 83 21 08/25/18 01:40 80 22 08/25/18 01:30 78 19 08/25/18 01:24 81 22 08/25/18 01:23 36.8 C 80 20 116/79 08/25/18 01:15 82 20 116/79 Pulse Ox 08/25/18 11:48 89 L 08/25/18 07:04 98 08/25/18 06:07 98 08/25/18 04:38 95 08/25/18 04:01 96 08/25/18 03:31 97 08/25/18 03:01 08/25/18 02:31 08/25/18 02:20 08/25/18 02:18 08/25/18 02:10 08/25/18 02:00 08/25/18 01:50 100 08/25/18 01:40 98 08/25/18 01:30 96 08/25/18 01:24 98 08/25/18 01:23 98 05/05/19 01:15 99 Lab Results (24hrs): Laboratory Tests (24 Hours) 08/25/18 08/25/18 01:33 01:33 WBC 14.66 H Creatinine 2.32 H Est Cr Clr Drug Dosing 26.5 Micro Results: 08/25/18 01:35 Blood Culture - Pending Blood 08/25/18 03:04 Blood Culture - Pending Blood - Risk Factors for Resistance * Resident in a long-term or extended-care facility - currently resided at [facility] for rehabilitation for his knee. - Assessment & Plan Assessment 83 year old M presents to ED with SOB and worsening left lower extremity swelling with decreased sensation. There is a red, painful wound on his left foot. Doplar showed a thrombus in left posterior tibial artery and left dordalis pedis artery, and bilateral plaques. Pt afebrile, WBC 14.7. Blood cultures pending Chest xray showed possible RLL infiltrates. MRSA nasal swab pending. Plan Vancomycin and Zosyn for treatment of left lower extremity cellulitis and possible RLL pna. Vancomycin IV * Estimated PK Parameters: Vd 0.7 L/kg, Ramy 0.026 hr-1, t1/2 26 hr * Loading dose: 1500 mg (16.3 mg/kg) IV x1 in the ED. * Goal trough level : 10 to 15 mcg/mL * Due to lower LD will supplement with 750mg IV x1 now. * Pt estimated half-life >24 hrs. Will order random level with AM labs to help guide dosing needs. Piperacillin/tazobactam * 4.5 g bolus administered over 30 minutes, then 3.375 g IV extended infusion every 8 hours for CrCl greater than 20 mL/min. Pharmacy will continue to follow and will adjust dose/frequency as necessary. Thank you.
--- NOTE | 2018-08-25 15:38 | Infectious Disease Consult ---
Date of Consultation August 25, 2018 Assessment & Plan (1) Cellulitis of left lower extremity: Patient with left lower extremity ischemia with open wounds with secondary cellulitis. Patient likely will require vascular intervention and may need amputation in the future. He will be continued on Zosyn pending further culture results. Will follow. (2) Ischemia of left lower extremity: History of Present Illness Reason for Consultation: Left lower extremity cellulitis, C. difficile Attending Physician: Meagan Claros MD History of Present Illness 83-year-old male with history of hypertension, hyperlipidemia, peripheral vascular disease, GERD, dementia, who was brought to the hospital with several days of progressively worsening left leg pain, redness, and swelling. He has been followed for wounds of his left foot recently. He has been found to have severe vascular compromise along with evidence of left lower extremity cellulitis, and has been seen by vascular surgery with plans for possible intervention this week. He has been started empirically on Zosyn. Blood cultures are pending. He has had some diarrhea, C. difficile gene positive, toxin negative consistent with colonization. Allergies Allergy/AdvReac Type Severity Reaction Status Date / Time No Known Allergies Allergy Unverified 08/25/18 02:56 Home Medications Home Medications Medication Instructions Recorded Confirmed Type Saccharomyces boulardii [Probiotic 250 mg PO DAILY 08/25/18 08/25/18 History (S.boulardii)] acetaminophen 650 mg PO Q6H PRN 08/25/18 08/25/18 History acetaminophen 650 mg PO Q6H PRN MDD 3G/24HRS 08/25/18 08/25/18 History apixaban [Eliquis] 2.5 mg PO BID 08/25/18 08/25/18 History atorvastatin [Lipitor] 80 mg PO HS 08/25/18 08/25/18 History donepezil [Aricept] 5 mg PO HS 08/25/18 08/25/18 History finasteride 5 mg PO DAILY 08/25/18 08/25/18 History folic acid 1 mg PO DAILY 08/25/18 08/25/18 History furosemide [Lasix] 80 mg PO BID 08/25/18 08/25/18 History hydrocortisone [Anusol-HC] 1 applic [place] Q12 PRN 08/25/18 08/25/18 History hydrocortisone acetate [Anusol-HC] 25 mg [place] Q12 PRN 08/25/18 08/25/18 History ipratropium-albuterol 3 ml INHALATION Q6 PRN 08/25/18 08/25/18 History levetiracetam [Keppra] 250 mg PO BID 08/25/18 08/25/18 History melatonin 3 mg PO HS 08/25/18 08/25/18 History metoprolol tartrate 100 mg PO BID 08/25/18 08/25/18 History multivit,stress formula-zinc 1 tab PO DAILY 08/25/18 08/25/18 History [Stress Formula with Zinc] omeprazole 40 mg PO DAILY 08/25/18 08/25/18 History protein hydrolysate,milk [Liquid 30 ml PO BID 08/25/18 08/25/18 History Protein Fortifier] quetiapine [Seroquel] 12.5 mg PO HS 08/25/18 08/25/18 History sennosides-docusate sodium 2 tab PO . 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 Beliefs That Will Affect Care: None Current Living Situation: [facility] Feels Safe at Home: Yes Safety Concerns: Feels Safe At This Time Smoking Status: Unknown if ever smoked Physical Exam Constitutional: WD/WN, vitals as above comfortable; no acute distress Eyes: PERRL, conjunctivae normal, anicteric sclerae ENMT: external ear and nose normal, oropharynx normal Neck: trachea midline, no thyromegaly neck nontender Respiratory: normal respiratory effort, lungs clear to auscultation normal percussion; does not use accessory muscles Cardiovascular: Rate/Rhythm: regular rate and regular rhythm Heart Sounds: normal S1 and normal S2; no gallop, no murmur and no cardiac rub Vessels: no JVD Absent peripheral pulses Gastrointestinal (Abdomen): normal bowel sounds, soft, nontender, no hepatosplenomegaly Musculoskeletal: no cyanosis or clubbing, extremities motor strength 5/5 Spine: thoracic spine normal to inspection and lumbar spine normal to inspection; no cervical spinal tenderness Skin: no rashes, warm and dry normal turgor; no lesions Neurologic: moves all extremities; no focal motor deficits Psychiatric: Orientation: alert and cooperative Oriented to person Lymphatic: no cervical or axillary lymphadenopathy no inguinal lymphadenopathy Results & Data Vital Signs (Past 12 Hours) Vital Signs Temp Pulse Pulse Resp BP BP BP 08/25/18 11:48 37.2 C 85 19 134/86 08/25/18 07:04 36.6 C 84 20 150/80 H 08/25/18 06:07 36.7 C 82 14 144/78 H 08/25/18 04:38 75 18 125/82 08/25/18 04:01 79 19 132/78 Pulse Ox 08/25/18 11:48 89 L 08/25/18 07:04 98 08/25/18 06:07 98 08/25/18 04:38 95 08/25/18 04:01 96 Laboratory Results Short CBC 08/25/18 Range/Units 01:33 WBC 14.66 H (4.8-10.8) K/uL Hgb 10.4 L (14.0-18.0) g/dL Hct 35.1 L (42-52) % Plt Count 183 (130-400) K/uL BMP 08/25/18 01:33 Sodium 136 Potassium 3.3 L Chloride 98 Carbon Dioxide 34 H BUN 65 H Creatinine 2.32 H Glucose 108 H Calcium 8.1 L Cardiac Enzymes 08/25/18 08/25/18 Range/Units 01:33 06:45 Troponin I 0.899 H* 0.932 H* (0-0.045) ng/ml Liver Function 08/25/18 Range/Units 01:33 Total Bilirubin 1.0 (0.2-1) mg/dl Direct Bilirubin 0.4 H (0-0.2) mg/dl AST 44 H (15-37) U/L ALT 18 (12-78) U/L Alkaline Phosphatase 147 H (45-117) U/L Albumin 2.2 L (3.4-5.0) gm/dl Urine 08/25/18 Range/Units 02:20 Urine Color Yellow Urine Appearance Clear (Clear) Urine pH 5.0 (4.5-7.5) Ur Specific [place] 1.014 (1.000-1.030) Urine Protein Negative (Negative) Urine Glucose (UA) Negative (Negative) Diagnostic Findings ULTRASOUND BILATERAL LOWER EXTREMITY ARTERIAL CLINICAL HISTORY: Lower extremities cellulitis. COMPARISON STUDY: No priors. TECHNIQUE: Real-time, grayscale, and color Doppler sonography of the arteries of the right and left lower extremity was performed from the inguinal crease to the foot. Ankle-brachial indices were not performed due to lack of patient cooperation. FINDINGS: Cardiac pulsations appear irregularly irregular suggesting arrhythmia. Right lower extremity: Mild atherosclerotic plaque is identified. The right common femoral artery is patent and demonstrates triphasic arterial waveforms. Velocities in the right common femoral artery measure up to 58 cm/s. There are triphasic arterial waveforms throughout the right superficial femoral artery with velocities measuring up to 81 cm/s. The profundus femoris artery is patent with velocities measuring up to 38 cm/s. There are triphasic arterial waveforms in the popliteal artery with velocities measuring up to 96 cm/s. Atherosclerotic plaque is noted throughout the calf arteries. There is three-vessel runoff to the foot. Velocities within the calf arteries measure up to 80 cm/s. The dorsalis pedis artery is patent with velocities measuring up to 105 cm/s. Left lower extremity: Mild sclerotic plaque is identified. The common femoral artery is patent with triphasic waveforms and velocities measuring up to 73 cm/s. The profunda femoris arteries patent with velocities measuring up to 62 cm/s. There are triphasic waveforms seen throughout the superficial femoral artery with velocities measuring up to 74 cm/s. The popliteal artery is patent and demonstrates triphasic arterial waveforms. Velocities in the popliteal artery measure up to 58 cm/s. Atherosclerotic plaque an irregularity is seen throughout the calf arteries. There is thrombosis of the posterior tibial artery. The peroneal artery appears patent with velocities measuring up to 56 cm/s. The anterior tibial artery is patent with velocities measuring up to 61 cm/s. The majority of the dorsalis pedis artery is thrombosed. A portion of the dorsalis pedis artery appears to demonstrate retrograde flow. IMPRESSION: 1. There is no sonographic evidence of high-grade stenosis or focal vessel cut off seen throughout the arteries of the right lower extremity. 2. 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 3. Atherosclerotic plaque is seen throughout the calf vessels bilaterally. 4. Cardiac pulsations appear irregularly irregular suggesting arrhythmia. Clinical and EKG correlation will be required. Electronically signed by: Ezequiel Prince M.D. 08/25/2018 10:06 AM Dictated: 08/25/18 0908 Transcribed: 08/25/18 0908
[2018-08-25 16:37] LABS: Partial Thromboplastin Ratio 1.6; Partial Thromboplastin Time 44.6 Seconds (21.0-31.0)
[2018-08-25] MEDS ORDERED: HEPARIN IV BOLUS 3,000 UNITS in SYRINGE 0 ML IV ONE (18:00)
--- NOTE | 2018-08-25 19:22 | History & Physical Bridge Note ---
Date of Service August 25, 2018 History & Physical Bridge Note I have examined the patient, reviewed the History & Physical and in the interval since the performance of the History & Physical I have noted the following changes of clinical significance: Arterial Doppler showed left lower ext post tibial and dorsalis pedis arterial occlusions/thrombus. Seen by Vascular and not good candidate for vascular intervention, may end up with amputation. Troponin trended downward. Pt reports some pain in the foot, denies any other problems. has no idea where he is, or what the year is. Vitals reviewed NAD, alert awake, oriented only to person irreg irreg, mild tacjycardia, no murmur Decreased BS at bases bialt Ext: 2+ femoral pulses bilat, 1+ popliteal pulses bilat cannot palpate left DP or PT pulses, 2+ right DP and PT pulses Toes on left with blue discoloration, leg with erythema, scabbed over wound anterior left foot Tele -converted to Afib today with mild RVR in the low 100s. No h/o Afib noted in H&P. -on heparin gtt anyway for arterial occlusion, will increase metoprolol to 75mg po bid -continue Zosyn, Vanco -follow renal function with giving lasix and albumin
[2018-08-25] MEDS: ATORVASTATIN 40 MG TAB PO SCH (20:42)
[2018-08-25] MEDS: DONEPEZIL HCL 5 MG TAB PO SCH (20:42)
[2018-08-25] MEDS: TAMSULOSIN HCL 0.4 MG CAP PO SCH (20:42)
[2018-08-25] MEDS: METOPROLOL TARTRATE 25 MG TAB PO SCH (20:43)
[2018-08-25] MEDS: QUETIAPINE FUMARATE 25 MG TABLET PO SCH (20:44)
[2018-08-26 00:13] LABS: Partial Thromboplastin Ratio 2.3
[2018-08-26 00:19] LABS: Partial Thromboplastin Time 63.6 Seconds (21.0-31.0)
[2018-08-26] MEDS: RASPBERRY SYRUP 5 ML UDP PO SCH (06:17)
[2018-08-26] MEDS: VANCOMYCIN HCL 250 MG/5 ML SOLN PO SCH (06:17)
[2018-08-26 06:28] LABS: Hematocrit (blood only) 32.2 % (42-52); Hemoglobin 9.7 g/dL (14.0-18.0); Mean Corpuscular Hgb Conc 30.1 g/dL (32-36); Mean Corpuscular Volume 75.1 fL (80-100); Nucleated RBC % (auto) 2.2 %; Platelet Count 167 K/uL (130-400); RDW Coefficient of Variation 28.1 % (11.5-14.5); RDW Standard Deviation 76.8 fL (36.4-46.3); Red Blood Count 4.29 M/uL (4.7-6.1)
[2018-08-26 06:31] LABS: ALC (manual) 1.16 K/uL (1.2-3.4); Anisocytosis Present; Basophils # (manual) 0.93 K/uL (0-0.2); Basophils % (manual) 6.9 %; Eosinophils # (manual) 0.23 K/uL (0-0.5); Eosinophils % (manual) 1.7 %; Hypochromasia Present; INR 1.4 (0.9-1.1); Lymphocytes # (manual) 1.16 K/uL (1.2-3.4); Lymphocytes % (manual) 8.6 %; Microcytosis Present; Monocytes # (manual) 0.35 K/uL (0.11-0.59); Monocytes % (manual) 2.6 %; Neutrophils % (manual) 80.2 %; Partial Thromboplastin Ratio 2.1; Platelet Estimate Normal (Normal)
[2018-08-26 06:33] LABS: Partial Thromboplastin Time 57.5 Seconds (21.0-31.0)
[2018-08-26 06:47] LABS: Albumin Globulin Ratio 0.4 (0.9-2); Albumin Level 2.2 gm/dl (3.4-5.0); BUN Creatinine Ratio 24.7 (10-20); Bilirubin,Total 1.1 mg/dl (0.2-1); Calcium 8.1 mg/dl (8.5-10.1); Creatinine Clr Calc Pharmacy 25.9 ml/min; Est GFR (African American) 28.3; Est GFR (Non-African American) 24.4; Total Protein 7.2 gm/dl (6.4-8.2)
[2018-08-26] MEDS: ACETAMINOPHEN 1000 MG/100 ML IV IV PRN ×2 (07:54→15:57)
[2018-08-26] MEDS: PIPERACILLIN/TAZOBACTAM 3.375 GM in DEXTROSE 5% 100 ML IV SCH ×3 (07:55→23:46)
[2018-08-26] MEDS: ONDANSETRON INJ 2 MG/ML 2 ML VIAL IV PRN ×2 (07:55→16:27)
[2018-08-26] MEDS ORDERED: levETIRAcetam 250 MG in DEXTROSE 5% 100 ML IV SCH (09:00)
[2018-08-26] MEDS: MoRPHine SULFATE 2 MG/ML CARP IV PRN ×3 (09:10→16:27)
[2018-08-26] MEDS: POTASSIUM CHLORIDE / WTR 10 MEQ/100 ML PLCT IV SCH ×4 (09:46→13:13)
[2018-08-26] MEDS: CEROVITE ADV FORMULA TAB PO SCH (10:14)
[2018-08-26] MEDS: FOLIC ACID 1 MG TAB PO SCH (10:14)
[2018-08-26] MEDS: FINASTERIDE 5 MG TAB PO SCH ×2 (10:15→15:57)
[2018-08-26] MEDS: SODIUM CHLORIDE 0.65% NA SOLN 45 ML (OCEAN) SCH (10:15)
[2018-08-26] MEDS: PANTOprazole 40 MG TAB PO SCH ×3 (10:15→16:30)
[2018-08-26] MEDS: Heparin Adult STANDARD Wt-Based Dextrose 5% 25,000 units/500 mL IV SCH (11:55)
[2018-08-26] MEDS ORDERED: METOPROLOL TARTRATE 1 MG/ML VIAL IV SCH (12:00)
[2018-08-26] MEDS: LIDOCAINE 2% JELLY 5 ML TUBE EXT PRN (12:22)
[2018-08-26] MEDS ORDERED: VANCOMYCIN HCL 1,000 MG in SODIUM CHLORIDE 0.9% 250 ML IV SCH (13:00)
--- NOTE | 2018-08-26 13:36 | Fluoroscopy Report ---
FL video swallow HISTORY: Aspiration. Dyspnea. Dysphagia. assess for aspiration TECHNIQUE: Video fluoroscopic evaluation of swallowing was performed in the AP and lateral projection s by the speech pathology staff. The patient is fed nectar-thick and thin liquid barium, a barium coa ben wafer, and barium pudding. FLUOROSCOPY TIME: 1.2 minutes NUMBER OF FLUOROSCOPIC IMAGES: [id number] COMPARISON STUDY: None. FINDINGS: Decreased epiglottic inversion. Diminished oral motility. Trace aspiration with thin liquid s. IMPRESSION: 1. Trace aspiration with thin liquids. Diminished oral motility. 2. Please see the speech pathologist report for detailed findings and recommendations. The above report was generated using voice recognition software. It may contain grammatical, syntax or spelling errors. Electronically signed by: Christopher Yu M.D. 08/26/2018 1:35 PM
--- NOTE | 2018-08-26 17:30 | Hospitalist Progress Note ---
Date of Service August 26, 2018 Assessment & Plan (1) Ischemia of left lower extremity: PAD with ischemia of left lower extremity/cellulitis left lower extremity due to occlusion acutely of left posterior tibial and dorsalis pedis arteries Too high risk for intervention endovascularly due to renal failure as oer Vascular -awaiting right time and will liekly need amputation -continue vancomycin IV and Zosyn IV given MRSA positive on nasal swab -continue heparin infusion and holding home Eliquis for now APpreciate infectious disease consultation -pain control with tylenol, morphine (2) Cellulitis of left lower extremity: As above. (3) Peripheral vascular disease: As above. (4) Pneumonia: Pneumonia/pleural effusion- Treat with antibiotics as above. (5) NSTEMI (non-ST elevated myocardial infarction): Troponin on admission was 0.899, mild elevation and trended, flat curve Myocardial demand ischemia. No acute EKG changes. ECHO with severely reduced LVEF 20-25%. Consult Cardiology appreciated-plan for medical management given renal failure -continue atorvastatin, heparin gtt, metoprolol--> will discuss use of ASA? (6) Hypercholesteremia: Continue atorvastatin 80 mg at bedtime (7) Dementia: Fairly advanced Continue Seroquel, melatonin, Keppra and Aricept. (8) HTN (hypertension): stable -continue lasix but switch from IV to po -continue metoprolol at higher dose (9) GERD (gastroesophageal reflux disease): continue PPI (10) C. 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 Has been medicated with tylenol and morphine without much change as per RN. When asked if he has pain, he says "just my belly" Preciado flushed and draining appropriately, moving bowels Tele with NSR, PACs, 80s-90s, Also had A-fib with rates in the low 100s yesterday x 7 hours Review of Systems Review of Systems: All systems reviewed & are unremarkable except as noted in HPI & below Physical Exam Constitutional: well developed and + acute distress (mild) moaning Eyes: PERRL, conjunctivae normal, anicteric sclerae ENMT: external ear and nose normal, oropharynx normal Neck: trachea midline, no thyromegaly Respiratory: normal respiratory effort, lungs clear to auscultation Cardiovascular: RRR, no murmur, no edema Gastrointestinal (Abdomen): normal bowel sounds, soft, nontender, no hepatosplenomegaly Musculoskeletal: Extremities: + foot abnormality (left foot cool); + extremities abnormal to inspection (left toes with blue-purple discoloration,dry peeling skin,ulcer dorsal foot), no cyanosis and no clubbing Skin: + erythema (mild erythema left leg, improved) Neurologic: moves all extremities and awake; no focal motor deficits Psychiatric: Orientation: alert, oriented to person and cooperative; + not oriented to place and + not oriented to time Genitourinary: Preciado in place Results & Data Vital Signs (Past 12 Hours) Vital Signs Temp Pulse Pulse Pulse Resp BP BP 08/26/18 16:11 36.5 C 87 18 134/66 08/26/18 11:56 84 134/77 08/26/18 11:22 36.6 C 84 18 134/77 08/26/18 07:03 36.8 C 84 19 145/87 H Pulse Ox 08/26/18 16:11 98 08/26/18 11:56 08/26/18 11:22 91 08/26/18 07:03 95 Laboratory Results 08/27/18 08/27/18 08/27/18 Range/Units 05:15 05:15 05:15 WBC 17.26 H (4.8-10.8) K/uL RBC 4.54 L (4.7-6.1) M/uL Hgb 10.1 L (14.0-18.0) g/dL Hct 34.1 L (42-52) % MCV 75.1 L (80-100) fL MCH 22.2 L (25-34) pg MCHC 29.6 L (32-36) g/dL RDW Std Deviation 77.7 H (36.4-46.3) fL RDW Coeff of Eulalia 28.3 H (11.5-14.5) % Plt Count 167 (130-400) K/uL Absolute Nucleated RBC 0.41 H (0-0) K/uL Nucleated RBC % (auto) 2.4 % Neutrophils % (Manual) 74.1 % Lymphocytes % (Manual) 7.8 % Monocytes % (Manual) 5.2 % Eosinophils % (Manual) 2.6 % Basophils % (Manual) 10.3 % Neutrophils # (Manual) 12.79 H (1.4-6.5) K/uL Total Absolute Neuts 12.79 H (1.4-6.5) K/uL Lymphocytes # (Manual) 1.35 (1.2-3.4) K/uL Total Abs Lymphocytes 1.35 (1.2-3.4) K/uL Monocytes # (Manual) 0.90 H (0.11-0.59) K/uL Eosinophils # (Manual) 0.45 (0-0.5) K/uL Basophils # (Manual) 1.78 H (0-0.2) K/uL Hypochromasia Present Poikilocytosis Present Anisocytosis Present PT 14.5 H (9.0-12.0) Seconds INR 1.5 H (0.9-1.1) APTT 61.5 H* (21.0-31.0) Seconds PTT Ratio 2.3 Sodium 135 L (136-145) mmol/L Potassium 3.7 D (3.5-5.1) mmol/L Chloride 97 L (98-107) mmol/L Carbon Dioxide 30 (21-32) mmol/L Anion Gap 8.0 (3-11) BUN 61 H (7-18) mg/dl Creatinine 2.72 H D (0.6-1.4) mg/dl Est Cr Clr Drug Dosing 22.6 ml/min Est GFR ( Amer) 24.0 Est GFR (Non-Af Amer) 20.7 BUN/Creatinine Ratio 22.5 H (10-20) Glucose 105 H (70-99) mg/dl Calcium 8.3 L (8.5-10.1) mg/dl Magnesium 2.6 H (1.8-2.4) mg/dl Total Bilirubin 1.2 H (0.2-1) mg/dl AST 27 (15-37) U/L ALT 20 (12-78) U/L Alkaline Phosphatase 127 H (45-117) U/L Total Protein 7.4 (6.4-8.2) gm/dl Albumin 2.3 L (3.4-5.0) gm/dl Globulin 5.1 H (2.5-4.0) gm/dl Albumin/Globulin Ratio 0.5 L (0.9-2) Diagnostic Findings KUB no obstruction (1) Pneumonia Laterality: right Lung location: lower lobe of lung Pneumonia type: due to unspecified organism Qualified Code(s): J18.1 - Lobar pneumonia, unspecified organism
--- NOTE | 2018-08-26 17:56 | Cardiology Progress Note ---
Date of Service August 26, 2018 Assessment & Plan (1) Elevated troponin: He has a minimally elevated troponin with a quite flat pattern, I am almost certain that he has coronary artery disease and this probably represents demand ischemia. There is no evidence that this is an acute myocardial in farction (either non-ST segment elevation or ST segment elevation) either by electrocardiographic criteria or the enzyme pattern. At this point I would not consider invasive evaluation. (2) CHF (congestive heart failure): He presented in congestive heart failure, his BNP was elevated, he has pleural and pericardial effusions and edema. I do not think this is new. (3) Ischemic cardiomyopathy: Based on his echocardiogram I believe he has an ischemic cardiomyopathy. His ejection fraction is reduced and he has wall motion abnormalities consistent with prior infarction. I do not know if this was known before but he is on good doses of metoprolol, he is on metoprolol tartrate and it would be better to have him on metoprolol succinate but that is a minor change and I would make it when he goes home. He probably should not be on an NAVEED inhibitor due to his kidneys. (4) CRI (chronic renal insufficiency): I suspect he has chronic renal insufficiency although all I know is that recently his creatinine is elevated. (5) Pericardial effusion: He has a small pericardial effusion, it is certainly not enough to tap and it is most likely due to congestive heart failure (as well as his pleural effusions). I would treat this with diuresis. There is no evidence that he has pericarditis although that is a distant possibility. It is not causing hemodynamic abnormalities. (6) Paroxysmal A-fib: We now have evidence that he has paroxysmal atrial fibrillation and that the heart rate is somewhat elevated although not excessive during the arrhythmia. If possible it would be good to go up on his beta-blockade, rapid heart rates would probably be detrimental with his suspected coronary artery disease and with his cardiomyopathy. We also have to entertain the possibility of long-term anticoagulation, but it seems that he has been on Eliquis at a reduced dose which is appropriate given his age and renal function. If possible would recommend restarting the Eliquis when his heparin is discontinued. Subjective He continues to be difficult to communicate with, he answers questions but you cannot rely on the answers. He says he is not having pain, yet his actions suggest that he is having significant left foot pain. He does not have cardiovascular symptoms. Results & Data Vital Signs (Past 12 Hours) Vital Signs Temp Pulse Pulse Pulse Resp BP BP 08/26/18 16:11 36.5 C 87 18 134/66 08/26/18 11:56 84 134/77 08/26/18 11:22 36.6 C 84 18 134/77 08/26/18 07:03 36.8 C 84 19 145/87 H Pulse Ox 08/26/18 16:11 98 08/26/18 11:56 08/26/18 11:22 91 08/26/18 07:03 95 Diagnostic Findings Telemetry: He had atrial fibrillation yesterday with a heart rate averaging just over 100 bpm.
--- NOTE | 2018-08-26 19:02 | Infectious Disease Progress Nt ---
Date of Service August 26, 2018 Assessment & Plan (1) Cellulitis of left lower extremity: Patient with left lower extremity ischemia with open wounds with secondary cellulitis. Patient likely will require vascular intervention and may need amputation in the future. He will be continued on Zosyn pending further culture results. Will follow. (2) Ischemia of left lower extremity: Subjective Patient seen in follow-up for left foot infection in the setting of ischemia. Appears comfortable at present, still unable to provide any adequate history or review of systems. Remains afebrile. Review of Systems Review of Systems: Unobtainable due to cognitive status Physical Exam Constitutional: WD/WN, vitals as above comfortable; no acute distress Eyes: PERRL, conjunctivae normal, anicteric sclerae ENMT: external ear and nose normal, oropharynx normal Neck: trachea midline, no thyromegaly neck nontender Respiratory: normal respiratory effort, lungs clear to auscultation normal percussion; does not use accessory muscles Cardiovascular: Rate/Rhythm: regular rate and regular rhythm Heart Sounds: normal S1 and normal S2; no gallop, no murmur and no cardiac rub Vessels: no JVD Gastrointestinal (Abdomen): normal bowel sounds, soft, nontender, no hepatosplenomegaly Musculoskeletal: no cyanosis or clubbing, extremities motor strength 5/5 Spine: thoracic spine normal to inspection and lumbar spine normal to inspection; no cervical spinal tenderness Skin: no rashes, warm and dry normal turgor; no lesions Neurologic: moves all extremities; no focal motor deficits Psychiatric: Orientation: alert and cooperative Lymphatic: no cervical or axillary lymphadenopathy no inguinal lymphadenopathy Results & Data Vital Signs (Past 12 Hours) Vital Signs Temp Pulse Pulse Pulse Resp BP BP 08/26/18 16:11 36.5 C 87 18 134/66 08/26/18 11:56 84 134/77 08/26/18 11:22 36.6 C 84 18 134/77 08/26/18 07:03 36.8 C 84 19 145/87 H Pulse Ox 08/26/18 16:11 98 08/26/18 11:56 08/26/18 11:22 91 08/26/18 07:03 95 Laboratory Results Short CBC 08/26/18 Range/Units 05:17 WBC 13.50 H (4.8-10.8) K/uL Hgb 9.7 L (14.0-18.0) g/dL Hct 32.2 L (42-52) % Plt Count 167 (130-400) K/uL BMP 08/26/18 05:17 Sodium 138 Potassium 3.0 L Chloride 99 Carbon Dioxide 33 H BUN 59 H Creatinine 2.37 H Glucose 94 Calcium 8.1 L Liver Function 08/26/18 Range/Units 05:17 Total Bilirubin 1.1 H (0.2-1) mg/dl AST 29 (15-37) U/L ALT 18 (12-78) U/L Alkaline Phosphatase 129 H (45-117) U/L Albumin 2.2 L (3.4-5.0) gm/dl
--- NOTE | 2018-08-26 19:25 | XRay Report ---
KUB HISTORY: Acute generalized abdominal pain abdominal pain COMPARISON: Chest radiograph 08/25/2018, swallow study [id number] FINDINGS: The bowel gas pattern is non-obstructive. Retained enteric contrast is noted about the larg e bowel. Multiple indeterminate pelvic densities are noted. There is no organomegaly. No renal calcu li. No ureteral calculi. No pneumoperitoneum or pneumatosis. Advanced degenerative changes about the lumbar spine with levoscoliosis. Moderate osteoarthritis about the bilateral hips. No fracture. Heart is enlarged. Small pleural effusions with bibasilar opacities and left hilar calcified lymph nodes. IMPRESSION: 1. Nonobstructive bowel gas pattern. 2. Small bilateral pleural effusions with bibasilar opacities redemonstrated. Electronically signed by: Noe Mcfarland M.D. 08/26/2018 7:24 PM
[2018-08-26] MEDS: METOPROLOL TARTRATE 25 MG TAB PO SCH (20:07)
[2018-08-26] MEDS: levETIRAcetam 250 MG TAB PO SCH (20:07)
[2018-08-26] MEDS: QUETIAPINE FUMARATE 25 MG TABLET PO SCH (20:07)
[2018-08-26] MEDS: ATORVASTATIN 40 MG TAB PO SCH (20:08)
[2018-08-26] MEDS: DONEPEZIL HCL 5 MG TAB PO SCH (20:08)
[2018-08-26] MEDS: TAMSULOSIN HCL 0.4 MG CAP PO SCH (20:08)
[2018-08-27] MEDS: Heparin Adult STANDARD Wt-Based Dextrose 5% 25,000 units/500 mL IV SCH ×2 (03:00→18:21)
[2018-08-27 05:33] LABS: Mean Corpuscular Hgb Conc 29.6 g/dL (32-36); Nucleated RBC # (auto) 0.41 K/uL (0-0); Nucleated RBC % (auto) 2.4 %; Platelet Count 167 K/uL (130-400)
[2018-08-27 05:53] LABS: INR 1.5 (0.9-1.1); Partial Thromboplastin Ratio 2.3; Prothrombin Time 14.5 Seconds (9.0-12.0)
[2018-08-27 05:57] LABS: Albumin Globulin Ratio 0.5 (0.9-2); Albumin Level 2.3 gm/dl (3.4-5.0); BUN Creatinine Ratio 22.5 (10-20); Bilirubin,Total 1.2 mg/dl (0.2-1); Calcium 8.3 mg/dl (8.5-10.1); Creatinine Clr Calc Pharmacy 22.6 ml/min; Est GFR (Non-African American) 20.7; Globulin 5.1 gm/dl (2.5-4.0); Magnesium 2.6 mg/dl (1.8-2.4); Potassium 3.7 mmol/L (3.5-5.1); Total Protein 7.4 gm/dl (6.4-8.2)
[2018-08-27 06:07] LABS: Partial Thromboplastin Time 61.5 Seconds (21.0-31.0)
[2018-08-27 06:09] LABS: Hematocrit (blood only) 34.1 % (42-52); Hemoglobin 10.1 g/dL (14.0-18.0); Mean Corpuscular Volume 75.1 fL (80-100); RDW Coefficient of Variation 28.3 % (11.5-14.5); RDW Standard Deviation 77.7 fL (36.4-46.3); Red Blood Count 4.54 M/uL (4.7-6.1); White Blood Count 17.26 K/uL (4.8-10.8)
[2018-08-27 06:13] LABS: ALC (manual) 1.35 K/uL (1.2-3.4); Anisocytosis Present; Basophils # (manual) 1.78 K/uL (0-0.2); Basophils % (manual) 10.3 %; Eosinophils # (manual) 0.45 K/uL (0-0.5); Eosinophils % (manual) 2.6 %; Hypochromasia Present; Lymphocytes # (manual) 1.35 K/uL (1.2-3.4); Lymphocytes % (manual) 7.8 %; Monocytes % (manual) 5.2 %; Neutrophils % (manual) 74.1 %; Poikilocytosis Present
[2018-08-27] MEDS ORDERED: FUROSEMIDE 80 MG TAB PO SCH (08:00)
[2018-08-27] MEDS: FOLIC ACID 1 MG TAB PO SCH (08:41)
[2018-08-27] MEDS: FINASTERIDE 5 MG TAB PO SCH (08:41)
[2018-08-27] MEDS: CEROVITE ADV FORMULA TAB PO SCH (08:41)
[2018-08-27] MEDS: PIPERACILLIN/TAZOBACTAM 3.375 GM in DEXTROSE 5% 100 ML IV SCH ×2 (08:41→21:19)
[2018-08-27] MEDS: levETIRAcetam 250 MG TAB PO SCH ×2 (08:41→21:12)
[2018-08-27] MEDS: METOPROLOL TARTRATE 25 MG TAB PO SCH ×2 (08:41→21:10)
[2018-08-27] MEDS: PANTOprazole 40 MG TAB PO SCH (08:41)
[2018-08-27] MEDS: SODIUM CHLORIDE 0.65% NA SOLN 45 ML (OCEAN) SCH (09:28)
--- NOTE | 2018-08-27 09:33 | Communication Note ---
Date of Service: August 27, 2018 83 yo m seen with Dr Bejarano in f/u regarding ischemic LLE. Foot appears slightly improved. No vascular surgical intervention recommended at this time d/t multiple comorbidities including CKD. If pt develops severe infection in foot or intractable pain, would recommend amputation. Please call if needed.
[2018-08-27 11:29] LABS: Creatinine Clr Calc Pharmacy 20.1 ml/min; Est GFR (African American) 20.8; Est GFR (Non-African American) 17.9
--- NOTE | 2018-08-27 11:51 | Cardiology Progress Note ---
Date of Service August 27, 2018 Assessment & Plan (1) Elevated troponin: He had a minimally elevated troponin with a quite flat pattern, I am almost certain that he has coronary artery disease and this probably represented demand ischemia. There is no evidence that this is an acute myocardial i nfarction (either non-ST segment elevation or ST segment elevation) either by electrocardiographic criteria or the enzyme pattern. At this point I would not consider invasive evaluation. (2) CHF (congestive heart failure): He presented in congestive heart failure, his BNP was elevated, he has pleural and pericardial effusions and edema. I do not think this is new. He may have lost a little bit of fluid based on his weight, however his intake is now greater than his output, his weight is up a bit and his creatinine is increasing. He is receiving a lot of intravenous fluid. We need to be careful that he does not have progressive heart failure which could be difficult to manage. (3) Ischemic cardiomyopathy: Based on his echocardiogram I believe he has an ischemic cardiomyopathy. His ejection fraction is reduced and he has wall motion abnormalities consistent with prior infarction. I do not know if this was known before but he is on good doses of metoprolol, he is on metoprolol tartrate and it would be better to have him on metoprolol succinate but that is a minor change and I would make it when he goes home. He probably should not be on an NAVEED inhibitor due to his kidneys. (4) CRI (chronic renal insufficiency): I suspect he has chronic renal insufficiency although all I know is that recently his creatinine is elevated and continues to rise, I do not think this is all dehydration causing it since he is not lost that much weight. (5) Pericardial effusion: He has a small pericardial effusion, it is certainly not enough to tap and it is most likely due to congestive heart failure (as well as his pleural effusions). I would treat this with diuresis. There is no evidence that he has pericarditis although that is a distant possibility. It is not causing hemodynamic abnormalities. (6) Paroxysmal A-fib: We now have evidence that he has paroxysmal atrial fibrillation and that the heart rate is somewhat elevated although not excessive during the arrhythm ia. If possible it would be good to go up on his beta-blockade, rapid heart rates would probably be detrimental with his suspected coronary artery disease and with his cardiomyopathy. We also have to entertain the possibility of long- term anticoagulation, but it seems that he has been on Eliquis at a reduced dose which is appropriate given his age and renal function. If possible would recommend restarting the Eliquis when his heparin is discontinued. Subjective He remains minimally communicative, he has no complaints however. He appears comfortable today. Physical Exam Physical Exam: Constitutional: Alert, cooperative and in no distress however he is minimally communicative and does not answer questions appropriately. Pulmonary: Clear to auscultation bilaterally. Cardiac: Regular rhythm with no murmur, gallop or rub. Abdomen: Soft, nontender with normal bowel sounds. Extremities: No edema. Skin: The left foot is mottled and suggests arterial insufficiency. Results & Data Vital Signs (Past 12 Hours) Vital Signs Temp Pulse Pulse Pulse Resp BP BP 08/27/18 09:00 08/27/18 08:06 37.0 C 92 H 16 133/84 08/27/18 08:00 89 08/27/18 03:55 36.9 C 89 18 131/80 08/27/18 00:14 83 Pulse Ox 08/27/18 09:00 92 08/27/18 08:06 86 L 08/27/18 08:00 08/27/18 03:55 08/27/18 00:14 Diagnostic Findings Telemetry: Sinus rhythm, no further atrial fibrillation in the past 24 hours
[2018-08-27] MEDS: MoRPHine SULFATE 2 MG/ML CARP IV PRN (12:48)
--- NOTE | 2018-08-27 13:13 | Pharmacy Report ---
Pharmacy Abx Dose Short Note - Date of Service August 27, 2018 - Assessment & Plan Assessment 83 year old M receiving vancomycin/zosyn Day # 3 of antimicrobial therapy. Plan Vancomycin * Scr trending up very quickly, from 2.37 to 2.76 therefore put vancomycin on hold and ordered a stat random level * Random level was 19.6 therapeutic (goal 15-20 mcg/ml for pna/ssti with drainage) * However, Scr at this time continuing to trend up to 3.06 mg/dL - will hold further doses of vancomycin until Scr stable * Unclear of estimated kinetics at this time due to changing renal function - ordered random vancomycin level this evening at 2000 to assess clearance and also to assess Scr at that time - will need to follow up on level for tonight * ID continues to follow patient - talked with provider and want to continue vancomycin due to positive nasal swab Zosyn: * changed to 3.375 gm iv q 12 hrs (appropriate for CrCl <20 - at this time, patient on borderline for dosage change, but due to rising Scr went with lower dosing Pharmacy will continue to follow and will adjust dose/frequency as necessary. Thank you.
--- NOTE | 2018-08-27 13:46 | Hospitalist Progress Note ---
Date of Service August 27, 2018 Assessment & Plan (1) Ischemia of left lower extremity: PAD with ischemia of left lower extremity/cellulitis left lower extremity due to occlusion acutely of left posterior tibial and dorsalis pedis arteries Too high risk for intervention endovascularly due to renal failure as per Vascular -Kehinde has now signed off saying that his foot is looking better and will not perform surgery at this time unless develops intractable pain or signs of worsening infection leukocytosis is worse today, is afebrile but also getting tylenol for pain -he is not really able to communicate pain effectively but will watch for increased agitation -continue vancomycin IV and Zosyn IV given MRSA positive on nasal swab- appreciate Pharmacy dosing Vanc -continue heparin infusion and holding home Eliquis for now in case of need for surgical intervention APpreciate infectious disease consultation -pain control with tylenol, morphine -continue to watch (2) Cellulitis of left lower extremity: Seems improved (3) Peripheral vascular disease: As above. (4) Pneumonia: Pneumonia/pleural effusion- Treat with antibiotics as above. (5) NSTEMI (non-ST elevated myocardial infarction): Troponin on admission was 0.899, mild elevation and trended, flat curve Myocardial demand ischemia. No acute EKG changes. ECHO with severely reduced LVEF 20-25%. Consult Cardiology appreciated-plan for medical management given renal failure -continue atorvastatin, heparin gtt, metoprolol--> will discuss use of ASA? (6) Hypercholesteremia: Continue atorvastatin 80 mg at bedtime (7) Dementia: Fairly advanced Continue Seroquel, melatonin, Keppra and Aricept. (8) HTN (hypertension): stable -continue lasix but switch from IV to po -continue metoprolol at higher dose (9) GERD (gastroesophageal reflux disease): continue PPI (10) C. difficile colitis: had diarrhea at [place], now none and is a carrier but toxin is negative--> dcd po Vanco he was on prior to admission (11) CHF (congestive heart failure): Acute on chronic systolic (congestive) heart failure LVEF 20-25% Likely ischemic given WMAs -medically manage -volume status euvolemic, switch back to po lasix however now creatinine rising--> hold lasix po -continue Coreg, not on ACEi due to renal failure (12) Ischemic cardiomyopathy: as above (13) Pericardial effusion: secondary to CHF, small -diuresed (14) LELE (acute kidney injury): machine long goods helper up to 3.07 now, was diuresed with IV lasix and albumin on admission, with severe systolic CHF, could be cardiorenal syndrome Also is on vanco -Nephro consult -hold lasix -check Ur Na+, machine long goods helper, calculate FeNA Has Preciado in place functioning appropriately -follow BMP (15) CKD (chronic kidney disease) stage 4, GFR 15-29 ml/min: unclear what baseline renal function is -now with machine long goods helper rising with Lele -avoid nephrotoxins -renally dose meds -consult Nephro (16) Paroxysmal A-fib: had 8 hours of Afib with rates in low 100s on 08/26, spontaneously converted to NSR -continue increased dose metoprolol tartrate 75 bid nad consider switching to Toprol XL 150 on discharge -on heparin gtt and eventually will go back on Eliquis for AC -appreciate Cardio following (17) DVT prophylaxis: heparin gtt Dispo-stay on tele Subjective Pt continues to moan frequently. RN reports his bottom is excoriated. Pt told her "my a-hole hurts." Pt tells me he is feeling better now after receiving morphe. Says his foot hurts "a little." Tele with NSR rates 90s-90s Review of Systems Review of Systems: All systems reviewed & are unremarkable except as noted in HPI & below Physical Exam Constitutional: well developed Eyes: PERRL, conjunctivae normal, anicteric sclerae ENMT: external ear and nose normal, oropharynx normal Neck: trachea midline, no thyromegaly Respiratory: normal respiratory effort, lungs clear to auscultation Cardiovascular: RRR, no murmur, no edema Gastrointestinal (Abdomen): normal bowel sounds, soft, nontender, no hepatosplenomegaly Musculoskeletal: Extremities: + foot abnormality (left foot cool); + extremities abnormal to inspection (left toes with blue-purple discoloration,dry peeling skin,ulcer dorsal foot), no cyanosis and no clubbing Skin: + erythema (mild erythema left leg, improved) Neurologic: moves all extremities and awake; no focal motor deficits Psychiatric: Orientation: alert, oriented to person and cooperative; + not oriented to place and + not oriented to time Genitourinary: no penile swelling (Preciado in place) Results & Data Vital Signs (Past 12 Hours) Vital Signs Temp Pulse Pulse Pulse Resp BP BP 08/27/18 11:53 36.8 C 85 18 127/79 08/27/18 09:00 08/27/18 08:06 37.0 C 92 H 16 133/84 08/27/18 08:00 89 08/27/18 03:55 36.9 C 89 18 131/80 Pulse Ox 08/27/18 11:53 92 08/27/18 09:00 92 08/27/18 08:06 86 L 08/27/18 08:00 08/27/18 03:55 Laboratory Results 08/27/18 08/27/18 08/27/18 Range/Units 10:54 10:54 05:15 WBC (4.8-10.8) K/uL RBC (4.7-6.1) M/uL Hgb (14.0-18.0) g/dL Hct (42-52) % MCV (80-100) fL MCH (25-34) pg MCHC (32-36) g/dL RDW Std Deviation (36.4-46.3) fL RDW Coeff of Eulalia (11.5-14.5) % Plt Count (130-400) K/uL Absolute Nucleated RBC (0-0) K/uL Nucleated RBC % (auto) % Neutrophils % (Manual) % Lymphocytes % (Manual) % Monocytes % (Manual) % Eosinophils % (Manual) % Basophils % (Manual) % Neutrophils # (Manual) (1.4-6.5) K/uL Total Absolute Neuts (1.4-6.5) K/uL Lymphocytes # (Manual) (1.2-3.4) K/uL Total Abs Lymphocytes (1.2-3.4) K/uL Monocytes # (Manual) (0.11-0.59) K/uL Eosinophils # (Manual) (0-0.5) K/uL Basophils # (Manual) (0-0.2) K/uL Blood Smear Review Hypochromasia Poikilocytosis Anisocytosis PT 14.5 H (9.0-12.0) Seconds INR 1.5 H (0.9-1.1) APTT 61.5 H* (21.0-31.0) Seconds PTT Ratio 2.3 Sodium (136-145) mmol/L Potassium (3.5-5.1) mmol/L Chloride (98-107) mmol/L Carbon Dioxide (21-32) mmol/L Anion Gap (3-11) BUN (7-18) mg/dl Creatinine 3.06 H D (0.6-1.4) mg/dl Est Cr Clr Drug Dosing 20.1 ml/min Est GFR ( Amer) 20.8 Est GFR (Non-Af Amer) 17.9 BUN/Creatinine Ratio (10-20) Glucose (70-99) mg/dl Calcium (8.5-10.1) mg/dl Magnesium (1.8-2.4) mg/dl Total Bilirubin (0.2-1) mg/dl AST (15-37) U/L ALT (12-78) U/L Alkaline Phosphatase (45-117) U/L Total Protein (6.4-8.2) gm/dl Albumin (3.4-5.0) gm/dl Globulin (2.5-4.0) gm/dl Albumin/Globulin Ratio (0.9-2) Random Vancomycin 19.6 mcg/ml 08/27/18 08/27/18 Range/Units 05:15 05:15 WBC 17.26 H (4.8-10.8) K/uL RBC 4.54 L (4.7-6.1) M/uL Hgb 10.1 L (14.0-18.0) g/dL Hct 34.1 L (42-52) % MCV 75.1 L (80-100) fL MCH 22.2 L (25-34) pg MCHC 29.6 L (32-36) g/dL RDW Std Deviation 77.7 H (36.4-46.3) fL RDW Coeff of Eulalia 28.3 H (11.5-14.5) % Plt Count 167 (130-400) K/uL Absolute Nucleated RBC 0.41 H (0-0) K/uL Nucleated RBC % (auto) 2.4 % Neutrophils % (Manual) 74.1 % Lymphocytes % (Manual) 7.8 % Monocytes % (Manual) 5.2 % Eosinophils % (Manual) 2.6 % Basophils % (Manual) 10.3 % Neutrophils # (Manual) 12.79 H (1.4-6.5) K/uL Total Absolute Neuts 12.79 H (1.4-6.5) K/uL Lymphocytes # (Manual) 1.35 (1.2-3.4) K/uL Total Abs Lymphocytes 1.35 (1.2-3.4) K/uL Monocytes # (Manual) 0.90 H (0.11-0.59) K/uL Eosinophils # (Manual) 0.45 (0-0.5) K/uL Basophils # (Manual) 1.78 H (0-0.2) K/uL Blood Smear Review Pending Hypochromasia Present Poikilocytosis Present Anisocytosis Present PT (9.0-12.0) Seconds INR (0.9-1.1) APTT (21.0-31.0) Seconds PTT Ratio Sodium 135 L (136-145) mmol/L Potassium 3.7 D (3.5-5.1) mmol/L Chloride 97 L (98-107) mmol/L Carbon Dioxide 30 (21-32) mmol/L Anion Gap 8.0 (3-11) BUN 61 H (7-18) mg/dl Creatinine 2.72 H D (0.6-1.4) mg/dl Est Cr Clr Drug Dosing 22.6 ml/min Est GFR ( Amer) 24.0 Est GFR (Non-Af Amer) 20.7 BUN/Creatinine Ratio 22.5 H (10-20) Glucose 105 H (70-99) mg/dl Calcium 8.3 L (8.5-10.1) mg/dl Magnesium 2.6 H (1.8-2.4) mg/dl Total Bilirubin 1.2 H (0.2-1) mg/dl AST 27 (15-37) U/L ALT 20 (12-78) U/L Alkaline Phosphatase 127 H (45-117) U/L Total Protein 7.4 (6.4-8.2) gm/dl Albumin 2.3 L (3.4-5.0) gm/dl Globulin 5.1 H (2.5-4.0) gm/dl Albumin/Globulin Ratio 0.5 L (0.9-2) Random Vancomycin mcg/ml (1) Pneumonia Laterality: right Lung location: lower lobe of lung Pneumonia type: due to unspecified organism Qualified Code(s): J18.1 - Lobar pneumonia, unspecified organism
--- NOTE | 2018-08-27 15:23 | Infectious Disease Progress Nt ---
Date of Service August 27, 2018 Assessment & Plan (1) Cellulitis of left lower extremity: Patient with left lower extremity ischemia with open wounds with secondary cellulitis. Found to have inoperable vascular compromise. Given some improvement in foot, plan to treat conservatively with IV antibiotics for now. Length of IV will be determined by clinical response. Will follow. (2) Ischemia of left lower extremity: Subjective He remains minimally communicative, he has no complaints however. He appears comfortable today. Review of Systems Review of Systems: All systems reviewed & are unremarkable except as noted in HPI & below Physical Exam Constitutional: WD/WN, vitals as above comfortable; no acute distress Eyes: PERRL, conjunctivae normal, anicteric sclerae ENMT: external ear and nose normal, oropharynx normal Neck: trachea midline, no thyromegaly neck nontender Respiratory: normal respiratory effort, lungs clear to auscultation normal percussion; does not use accessory muscles Cardiovascular: Rate/Rhythm: regular rate and regular rhythm Heart Sounds: normal S1 and normal S2; no gallop, no murmur and no cardiac rub Vessels: no JVD Gastrointestinal (Abdomen): normal bowel sounds, soft, nontender, no hepatosplenomegaly Musculoskeletal: no cyanosis or clubbing, extremities motor strength 5/5 Spine: thoracic spine normal to inspection and lumbar spine normal to inspection; no cervical spinal tenderness Skin: no rashes, warm and dry normal turgor; no lesions Neurologic: moves all extremities; no focal motor deficits Psychiatric: Orientation: alert and cooperative Lymphatic: no cervical or axillary lymphadenopathy no inguinal lymphadenopathy Results & Data Vital Signs (Past 12 Hours) Vital Signs Temp Pulse Pulse Pulse Resp BP BP 08/27/18 11:53 36.8 C 85 18 127/79 08/27/18 09:00 08/27/18 08:06 37.0 C 92 H 16 133/84 08/27/18 08:00 89 08/27/18 03:55 36.9 C 89 18 131/80 Pulse Ox 08/27/18 11:53 92 08/27/18 09:00 92 08/27/18 08:06 86 L 08/27/18 08:00 08/27/18 03:55 Laboratory Results Short CBC 08/27/18 Range/Units 05:15 WBC 17.26 H (4.8-10.8) K/uL Hgb 10.1 L (14.0-18.0) g/dL Hct 34.1 L (42-52) % Plt Count 167 (130-400) K/uL BMP 08/27/18 08/27/18 05:15 10:54 Sodium 135 L Potassium 3.7 D Chloride 97 L Carbon Dioxide 30 BUN 61 H Creatinine 2.72 H D 3.06 H D Glucose 105 H Calcium 8.3 L Liver Function 08/27/18 Range/Units 05:15 Total Bilirubin 1.2 H (0.2-1) mg/dl AST 27 (15-37) U/L ALT 20 (12-78) U/L Alkaline Phosphatase 127 H (45-117) U/L Albumin 2.3 L (3.4-5.0) gm/dl Diagnostic Findings Microbiology 08/25/18 03:04 Blood Blood Culture - Preliminary No growth to date. 08/25/18 01:35 Blood Blood Culture - Preliminary No growth to date.
--- NOTE | 2018-08-27 17:33 | Nephrology Consultation ---
Date of Consultation August 27, 2018 Assessment & Plan (1) LELE (acute kidney injury): -- UA bland, microscopy acellular -- No recent renal imaging available for review -- Preciado draining concentrated urine -- Clinical presentation consistent with ATN -- Vanco trough 20 -- Medications acceptable for kidney function -- Poor candidate for renal replacement therapy -- Agree with diuretics as needed to encourage urine output -- At this time continue to hold furosemide with monitoring -- Document strict I/O's -- Repeat metabolic profile tomorrow AM (2) CRI (chronic renal insufficiency): -- Creatinine in July 2.18 mg/dL -- No prior nephrology evaluation available for review -- Will try to obtain additional records from [facility] -- Prognosis is guarded (3) Ischemic cardiomyopathy: -- Diuretics have been held -- Volume status appears acceptable -- Patient is not in significantly decompensated CHF at this time (4) Cellulitis of left lower extremity: -- ID following -- Remains on Zosyn -- IV vanco provided on admission -- Trough <20 (5) Ischemia of left lower extremity: -- Vascular surgery noted no surgical intervention due to risk -- Remains on heparin gtt History of Present Illness Reason for Consultation: LELE Requesting Physician: Meagan Claros MD Attending Physician: Meagan Claros MD History of Present Illness Mr. Lb Olivo is an 83-year-old male with dementia, ischemic cardiomyopathy with impaired systolic function, peripheral arterial disease, and recent history of c diff colitis. He has baseline CKD. Serum creatinine measured at 2.1 mg/dL in July. The patient was admitted to [facility] on August 25. He presented with shortness of breath a lower extremity pain. He was found to be in acute systolic CHF and to have an infected ischemic lower extremity ulcer. Antibiotic therapy with vancomycin and Zosyn was started. He was started on a regimen of IV albumin and furosemide to encourage UOP. Preciado catheter was placed. Hospitalization was complicated by new onset atrial fibrillation. Due to multiple medical comorbidities, he was deemed to be not a surgical candidate. Conservative medical management has been provided. Unfortunately, kidney function has been worsening. Lb remains non-oliguric. His blood pressure has been acceptable. Creatinine has increased from 2.3 mg/dL on admission to 3.0 mg/dL today. Metabolic profile is otherwise acceptable. The patient is a poor historian. He is lethargic. He does respond to yes/no questions. He is slow to respond. It is difficult to assess comprehension. Baseline mental status is not known to me. Oral intake is reported as poor. A pureed diet has been provided. Imaging on admission was notable for bilateral pleural effusions and a pericardial effusion. Transthoracic echocardiogram demonstrated an LVEF of 20- 25%. There is notable apical akinesis. Allergies Allergy/AdvReac Type Severity Reaction Status Date / Time No Known Allergies Allergy Unverified 08/25/18 02:56 Home Medications Home Medications Medication Instructions Recorded Confirmed Type Saccharomyces boulardii [Probiotic 250 mg PO DAILY 08/25/18 08/25/18 History (S.boulardii)] acetaminophen 650 mg PO Q6H PRN 08/25/18 08/25/18 History acetaminophen 650 mg PO Q6H PRN MDD 3G/24HRS 08/25/18 08/25/18 History apixaban [Eliquis] 2.5 mg PO BID 08/25/18 08/25/18 History atorvastatin [Lipitor] 80 mg PO HS 08/25/18 08/25/18 History donepezil [Aricept] 5 mg PO HS 08/25/18 08/25/18 History finasteride 5 mg PO DAILY 08/25/18 08/25/18 History folic acid 1 mg PO DAILY 08/25/18 08/25/18 History furosemide [Lasix] 80 mg PO BID 08/25/18 08/25/18 History hydrocortisone [Anusol-HC] 1 applic MI Q12 PRN 08/25/18 08/25/18 History hydrocortisone acetate [Anusol-HC] 25 mg MI Q12 PRN 08/25/18 08/25/18 History ipratropium-albuterol 3 ml INHALATION Q6 PRN 08/25/18 08/25/18 History levetiracetam [Keppra] 250 mg PO BID 08/25/18 08/25/18 History melatonin 3 mg PO HS 08/25/18 08/25/18 History metoprolol tartrate 100 mg PO BID 08/25/18 08/25/18 History multivit,stress formula-zinc 1 tab PO DAILY 08/25/18 08/25/18 History [Stress Formula with Zinc] omeprazole 40 mg PO DAILY 08/25/18 08/25/18 History protein hydrolysate,milk [Liquid 30 ml PO BID 08/25/18 08/25/18 History Protein Fortifier] quetiapine [Seroquel] 12.5 mg PO HS 08/25/18 08/25/18 History sennosides-docusate sodium 2 tab PO . Q 24 HOURS PRN 08/25/18 08/25/18 History [Senna-S] sodium chloride [[place] Saline] 1 spray INTRANASAL DAILY 08/25/18 08/25/18 History tamsulosin 0.4 mg PO DAILY 08/25/18 08/25/18 History tramadol 50 mg PO Q6H PRN 08/25/18 08/25/18 History vancomycin 250 mg PO Q6 08/25/18 08/25/18 History Patient History Medical History Peripheral vascular disease Hypercholesteremia Insomnia HTN (hypertension) Dementia Prostate disorder GERD (gastroesophageal reflux disease) Bacterial enterocolitis Dysphagia Social History Preferred Language: Danish Communication Ability: Impaired Provider Scribe Required: No Beliefs That Will Affect Care: None Current Living Situation: Jail Feels Safe at Home: Yes Safety Concerns: Feels Safe At This Time Smoking Status: Unknown if ever smoked Review of Systems Review of Systems: Unobtainable due to mental health condition (poor verbal response) Physical Exam Constitutional: + cachectic and + frail appearing; no acute distress Eyes: no scleral abnormality and no corneal abnormality ENMT: Mouth: + dry oral mucous membranes; no oral mucosal abnormality Neck: trachea midline Thyroid: normal thyroid Respiratory: no respiratory distress Auscultation: + diminished lung sounds and + rales Cardiovascular: Heart Sounds: normal S1 and normal S2; no murmur and no cardiac rub Vessels: + JVD Extremities: no edema Gastrointestinal (Abdomen): Percussion/Palpation: abdomen soft; abdomen nontender Musculoskeletal: Extremities: no cyanosis and no clubbing Skin: + turgor decreased; no rashes Neurologic: Motor/Sensory: no tremor and no asterixis Psychiatric: Eye Contact: + poor eye contact lethargic, easy to arouse Genitourinary: Preciado draining concentrated urine Results & Data Vital Signs (Past 12 Hours) Vital Signs Temp Pulse Pulse Pulse Resp BP Pulse Ox 08/27/18 15:49 36.8 C 74 18 124/69 96 08/27/18 11:53 36.8 C 85 18 127/79 92 08/27/18 09:00 92 08/27/18 08:06 37.0 C 92 H 16 133/84 86 L 08/27/18 08:00 89 Laboratory Results Laboratory Results - last 24 hr 08/27/18 08/27/18 08/27/18 05:15 05:15 05:15 WBC 17.26 H RBC 4.54 L Hgb 10.1 L Hct 34.1 L MCV 75.1 L MCH 22.2 L MCHC 29.6 L RDW Std Deviation 77.7 H RDW Coeff of Eulalia 28.3 H Plt Count 167 Absolute Nucleated RBC 0.41 H Nucleated RBC % (auto) 2.4 Neutrophils % (Manual) 74.1 Lymphocytes % (Manual) 7.8 Monocytes % (Manual) 5.2 Eosinophils % (Manual) 2.6 Basophils % (Manual) 10.3 Neutrophils # (Manual) 12.79 H Total Absolute Neuts 12.79 H Lymphocytes # (Manual) 1.35 Total Abs Lymphocytes 1.35 Monocytes # (Manual) 0.90 H Eosinophils # (Manual) 0.45 Basophils # (Manual) 1.78 H Blood Smear Review Hypochromasia Present Poikilocytosis Present Anisocytosis Present PT 14.5 H INR 1.5 H APTT 61.5 H* PTT Ratio 2.3 Sodium 135 L Potassium 3.7 D Chloride 97 L Carbon Dioxide 30 Anion Gap 8.0 BUN 61 H Creatinine 2.72 H D Est Cr Clr Drug Dosing 22.6 Est GFR ( Amer) 24.0 Est GFR (Non-Af Amer) 20.7 BUN/Creatinine Ratio 22.5 H Glucose 105 H Calcium 8.3 L Magnesium 2.6 H Total Bilirubin 1.2 H AST 27 ALT 20 Alkaline Phosphatase 127 H Total Protein 7.4 Albumin 2.3 L Globulin 5.1 H Albumin/Globulin Ratio 0.5 L Random Vancomycin 08/27/18 08/27/18 10:54 10:54 WBC RBC Hgb Hct MCV MCH MCHC RDW Std Deviation RDW Coeff of Eulalia Plt Count Absolute Nucleated RBC Nucleated RBC % (auto) Neutrophils % (Manual) Lymphocytes % (Manual) Monocytes % (Manual) Eosinophils % (Manual) Basophils % (Manual) Neutrophils # (Manual) Total Absolute Neuts Lymphocytes # (Manual) Total Abs Lymphocytes Monocytes # (Manual) Eosinophils # (Manual) Basophils # (Manual) Blood Smear Review Hypochromasia Poikilocytosis Anisocytosis PT INR APTT PTT Ratio Sodium Potassium Chloride Carbon Dioxide Anion Gap BUN Creatinine 3.06 H D Est Cr Clr Drug Dosing 20.1 Est GFR ( Amer) 20.8 Est GFR (Non-Af Amer) 17.9 BUN/Creatinine Ratio Glucose Calcium Magnesium Total Bilirubin AST ALT Alkaline Phosphatase Total Protein Albumin Globulin Albumin/Globulin Ratio Random Vancomycin 19.6
[2018-08-27 20:55] LABS: Creatinine Clr Calc Pharmacy 18.2 ml/min; Est GFR (African American) 18.5
[2018-08-27] MEDS: QUETIAPINE FUMARATE 25 MG TABLET PO SCH (21:10)
[2018-08-27] MEDS: ATORVASTATIN 40 MG TAB PO SCH (21:10)
[2018-08-27] MEDS: TAMSULOSIN HCL 0.4 MG CAP PO SCH (21:12)
[2018-08-27] MEDS: DONEPEZIL HCL 5 MG TAB PO SCH (21:20)
[2018-08-27 21:26] LABS: Appearance Urine Turbid (Clear); Bacteria Urine Automated Negative (Negative); Bilirubin Urine Negative (Negative); Blood Urine 3+ (Negative); Color Urine Dark Yellow; Epithelial Cell Urine Auto 20-30 /lpf (0-5); Glucose Urine UA Negative (Negative); Ketones Urine Negative (Negative); Leukocyte Esterase Urine 3+ (Negative); Nitrite Urine Negative (Negative); Protein Urine 2+ (Negative); Specific Gravity Urine 1.022 (1.000-1.030); Urobilinogen Urine Negative (Negative); WBC Urine Automated >30 /hpf (0-5)
[2018-08-27 22:05] LABS: Uric Acid Crystals Urine Present (None Prsent)
[2018-08-28 06:44] LABS: INR 1.5 (0.9-1.1)
[2018-08-28 06:51] LABS: Mean Corpuscular Hgb Conc 28.9 g/dL (32-36)
[2018-08-28 07:07] LABS: Hematocrit (blood only) 33.2 % (42-52); Hemoglobin 9.6 g/dL (14.0-18.0); Mean Corpuscular Volume 75.6 fL (80-100); Nucleated RBC # (auto) 0.37 K/uL (0-0); Nucleated RBC % (auto) 2.5 %; Platelet Count 224 K/uL (130-400); RDW Coefficient of Variation 28.4 % (11.5-14.5); RDW Standard Deviation 78.2 fL (36.4-46.3); Red Blood Count 4.39 M/uL (4.7-6.1); White Blood Count 14.81 K/uL (4.8-10.8)
[2018-08-28 07:12] LABS: Albumin Level 2.1 gm/dl (3.4-5.0); Anisocytosis Present; BUN Creatinine Ratio 18.6 (10-20); Basophils # (auto) 0.82 K/uL (0-0.2); Basophils % (auto) 5.5 %; Calcium 8.1 mg/dl (8.5-10.1); Creatinine Clr Calc Pharmacy 16.6 ml/min; Echinocytes 1+; Eosinophils # (auto) 0.31 K/uL (0-0.5); Eosinophils % (auto) 2.1 %; Est GFR (African American) 16.5; Est GFR (Non-African American) 14.2; Giant Platelets 1+; Immature Granulocytes # (auto) 0.15 K/uL (0.00-0.02); Lymphocytes # (auto) 1.85 K/uL (1.2-3.4); Lymphocytes % (auto) 12.5 %; Magnesium 2.8 mg/dl (1.8-2.4); Microcytosis Present; Monocytes # (auto) 1.09 K/uL (0.11-0.59); Monocytes % (auto) 7.4 %; Neutrophils # (auto) 10.59 K/uL (1.4-6.5); Neutrophils % (auto) 71.5 %; Platelet Estimate Normal (Normal); Poikilocytosis Present; Schistocytes 1+
[2018-08-28 07:16] LABS: Albumin Globulin Ratio 0.4 (0.9-2); Globulin 5.2 gm/dl (2.5-4.0); Total Protein 7.3 gm/dl (6.4-8.2)
[2018-08-28 07:43] LABS: Partial Thromboplastin Ratio 2.5
[2018-08-28 07:45] LABS: Partial Thromboplastin Time 69.1 Seconds (21.0-31.0)
--- NOTE | 2018-08-28 08:04 | Pharmacy Report ---
Pharmacy Abx Dose Short Note - Date of Service August 28, 2018 - Assessment & Plan Assessment 83 year old M receiving vancomycin and Zosyn for treatment of L leg cellulitis and pneumonia (with positive MRSA swab) Day # 4/7 of vancomycin therapy. Day #4/10 of Zosyn therapy. Vancomycin was placed on hold yesterday due to increasing SCr, which continues to increase and is at 3.7 this AM. Last dose of vancomycin was 08/26 @ 1300 and q12h levels have shown a stable vanc level ~18, with minimal decrease in level due to increasing renal function. ID is consulted and no change to antibiotics is indicated at this time. Need to continue to be cautious with the combination of vanc + Zosyn as this has been found to be a risk factor for nephrotoxicity. Plan Vancomycin * Random level of 18.4 mcg/mL is therapeutic * Continue to hold vancomycin and obtain levels to evaluate when patient can be re-dosed * Goal trough level for cellulitis/pneumonia : 15 to 20 mcg/mL * Random level ordered for: 08/29/18 with AM labs Zosyn * Continue lower dose of 3.375 gm q12h for CrCl < 20 mL/min Pharmacy will continue to follow and will adjust dose/frequency as necessary. Thank you.
[2018-08-28] MEDS: PIPERACILLIN/TAZOBACTAM 3.375 GM in DEXTROSE 5% 100 ML IV SCH ×2 (08:07→20:27)
[2018-08-28] MEDS: levETIRAcetam 250 MG TAB PO SCH ×2 (08:24→20:27)
[2018-08-28] MEDS: METOPROLOL TARTRATE 25 MG TAB PO SCH ×2 (08:25→20:27)
[2018-08-28] MEDS: PANTOprazole 40 MG TAB PO SCH (08:25)
[2018-08-28] MEDS: FOLIC ACID 1 MG TAB PO SCH (08:25)
[2018-08-28] MEDS: CEROVITE ADV FORMULA TAB PO SCH (08:25)
[2018-08-28] MEDS: FINASTERIDE 5 MG TAB PO SCH (08:25)
[2018-08-28] MEDS: SODIUM CHLORIDE 0.65% NA SOLN 45 ML (OCEAN) SCH (08:26)
[2018-08-28] MEDS: MoRPHine SULFATE 2 MG/ML CARP IV PRN ×3 (08:39→15:56)
[2018-08-28] MEDS ORDERED: NORMOSOL-R 500 ML IV ONE (10:22)
--- NOTE | 2018-08-28 10:28 | Nephrology Progress Note ---
Date of Service August 28, 2018 Assessment & Plan (1) LELE (acute kidney injury): -- Patient appears more dehydrated today -- Urine output reduced -- Creatnine rising -- Urine studies suggestive of prerenal etiology -- Will challenge with 500 ml bolus of normosol and repeat labs this afternoon -- Unfortunately, prognosis is guarded -- Preciado draining concentrated urine -- Vanco level remains therapeutic, hold additional dosing -- Medications acceptable for kidney function -- Due to medical comorbidities, dialysis would not be expected to provide benefit -- Document strict I/O's -- Repeat metabolic profile tomorrow AM (2) CRI (chronic renal insufficiency): -- Creatinine in July 2.18 mg/dL -- No prior nephrology evaluation available for review -- Prognosis is guarded (3) Ischemic cardiomyopathy: -- Diuretics have been held -- Patient is not in significantly decompensated CHF at this time -- Will be cautious with use of IVF and strongly encourage oral intake (4) Cellulitis of left lower extremity: -- ID following -- Remains on Zosyn -- Vanco level remains therapeutic (5) Ischemia of left lower extremity: -- Vascular surgery noted no surgical intervention due to risk -- Remains on heparin gtt Subjective Lb was awake and in pain this morning. He reports pain in his leg. He does not answer other questions. Minimal oral intake reported. No thirst. No fevers or chills. Preciado draining small amount of concentrated urine this morning. Review of Systems Review of Systems: Unobtainable due to cognitive status Physical Exam Constitutional: + cachectic, + frail appearing and + in distress Eyes: no scleral abnormality and no corneal abnormality ENMT: Mouth: + dry oral mucous membranes; no oral mucosal abnormality Neck: trachea midline Thyroid: normal thyroid Respiratory: no respiratory distress Auscultation: + diminished lung sounds and + rales Cardiovascular: Heart Sounds: normal S1 and normal S2; no murmur and no cardiac rub Vessels: + JVD Extremities: no edema Gastrointestinal (Abdomen): Percussion/Palpation: abdomen soft; abdomen nontender Musculoskeletal: Extremities: no cyanosis and no clubbing Skin: + turgor decreased; no rashes Neurologic: Motor/Sensory: no tremor and no asterixis Psychiatric: Eye Contact: + poor eye contact Results & Data Vital Signs (Past 12 Hours) Vital Signs Temp Pulse Pulse Pulse Resp BP Pulse Ox 08/28/18 07:51 36.8 C 74 18 121/69 98 08/28/18 07:27 81 08/28/18 05:07 37.0 C 78 19 111/69 96 08/28/18 00:51 37.1 C 75 22 123/79 99 Laboratory Results Laboratory Results - last 24 hr 08/27/18 08/27/18 08/27/18 05:15 10:54 10:54 WBC RBC Hgb Hct MCV MCH MCHC RDW Std Deviation RDW Coeff of [place] Plt Count Immature Gran % (Auto) Neut % (Auto) Lymph % (Auto) [place] % (Auto) Eos % (Auto) Baso % (Auto) Immature Gran # (Auto) Neut # (Auto) Lymph # (Auto) [place] # (Auto) Eos # (Auto) Baso # (Auto) Absolute Nucleated RBC Nucleated RBC % (auto) Blood Smear Review Platelet Estimate Giant Platelets Poikilocytosis Anisocytosis Microcytosis Echinocytes Schistocytes PT INR APTT PTT Ratio Sodium Potassium Chloride Carbon Dioxide Anion Gap BUN Creatinine 3.06 H D Est Cr Clr Drug Dosing 20.1 Est GFR ( Amer) 20.8 Est GFR (Non-Af Amer) 17.9 BUN/Creatinine Ratio Glucose Calcium Magnesium Total Bilirubin AST ALT Alkaline Phosphatase Total Protein Albumin Globulin Albumin/Globulin Ratio Urine Color Urine Appearance Urine pH Ur Specific [place] Urine Protein Urine Glucose (UA) Urine Ketones Urine Blood Urine Nitrite Urine Bilirubin Urine Urobilinogen Ur Leukocyte Esterase Urine WBC (Auto) Urine RBC (Auto) U Hyaline Cast (Auto) U Epithel Cells (Auto) Urine Bacteria (Auto) Urine Crystals Uric Acid Crystals Urine Yeast Ur Random Creatinine Ur Random Sodium Random Vancomycin 19.6 08/27/18 08/27/18 08/27/18 19:40 19:40 20:16 WBC RBC Hgb Hct MCV MCH MCHC RDW Std Deviation RDW Coeff of [place] Plt Count Immature Gran % (Auto) Neut % (Auto) Lymph % (Auto) Nance % (Auto) Eos % (Auto) Baso % (Auto) Immature Gran # (Auto) Neut # (Auto) Lymph # (Auto) [place] # (Auto) Eos # (Auto) Baso # (Auto) Absolute Nucleated RBC Nucleated RBC % (auto) Blood Smear Review Platelet Estimate Giant Platelets Poikilocytosis Anisocytosis Microcytosis Echinocytes Schistocytes PT INR APTT PTT Ratio Sodium Potassium Chloride Carbon Dioxide Anion Gap BUN Creatinine 3.37 H D Est Cr Clr Drug Dosing 18.2 Est GFR ( Amer) 18.5 Est GFR (Non-Af Amer) 16.0 BUN/Creatinine Ratio Glucose Calcium Magnesium Total Bilirubin AST ALT Alkaline Phosphatase Total Protein Albumin Globulin Albumin/Globulin Ratio Urine Color Urine Appearance Urine pH Ur Specific [place] Urine Protein Urine Glucose (UA) Urine Ketones Urine Blood Urine Nitrite Urine Bilirubin Urine Urobilinogen Ur Leukocyte Esterase Urine WBC (Auto) Urine RBC (Auto) U Hyaline Cast (Auto) U Epithel Cells (Auto) Urine Bacteria (Auto) Urine Crystals Uric Acid Crystals Urine Yeast Ur Random Creatinine 96.3 Ur Random Sodium 31 Random Vancomycin 08/27/18 08/27/18 08/28/18 20:16 20:30 05:43 WBC RBC Hgb Hct MCV MCH MCHC RDW Std Deviation RDW Coeff of [place] Plt Count Immature Gran % (Auto) Neut % (Auto) Lymph % (Auto) Nance % (Auto) Eos % (Auto) Baso % (Auto) Immature Gran # (Auto) Neut # (Auto) Lymph # (Auto) [place] # (Auto) Eos # (Auto) Baso # (Auto) Absolute Nucleated RBC Nucleated RBC % (auto) Blood Smear Review Platelet Estimate Giant Platelets Poikilocytosis Anisocytosis Microcytosis Echinocytes Schistocytes PT 15.0 H INR 1.5 H APTT PTT Ratio Sodium Potassium Chloride Carbon Dioxide Anion Gap BUN Creatinine Est Cr Clr Drug Dosing Est GFR ( Amer) Est GFR (Non-Af Amer) BUN/Creatinine Ratio Glucose Calcium Magnesium Total Bilirubin AST ALT Alkaline Phosphatase Total Protein Albumin Globulin Albumin/Globulin Ratio Urine Color Dark Yellow Urine Appearance Turbid A Urine pH 5.0 Ur Specific [place] 1.022 Urine Protein 2+ H Urine Glucose (UA) Negative Urine Ketones Negative Urine Blood 3+ H Urine Nitrite Negative Urine Bilirubin Negative Urine Urobilinogen Negative Ur Leukocyte Esterase 3+ H Urine WBC (Auto) >30 H Urine RBC (Auto) 10-30 H U Hyaline Cast (Auto) 1-5 U Epithel Cells (Auto) 20-30 H Urine Bacteria (Auto) Negative Urine Crystals Not Reportable Uric Acid Crystals Present A Urine Yeast Budding w/ Hyphae A Ur Random Creatinine Ur Random Sodium Random Vancomycin 18.1 08/28/18 08/28/18 08/28/18 05:43 05:43 05:43 WBC 14.81 H RBC 4.39 L Hgb 9.6 L Hct 33.2 L MCV 75.6 L MCH 21.9 L MCHC 28.9 L RDW Std Deviation 78.2 H RDW Coeff of [place] 28.4 H Plt Count 224 Immature Gran % (Auto) 1.0 Neut % (Auto) 71.5 Lymph % (Auto) 12.5 Nance % (Auto) 7.4 Eos % (Auto) 2.1 Baso % (Auto) 5.5 Immature Gran # (Auto) 0.15 H Neut # (Auto) 10.59 H Lymph # (Auto) 1.85 [place] # (Auto) 1.09 H Eos # (Auto) 0.31 Baso # (Auto) 0.82 H Absolute Nucleated RBC 0.37 H Nucleated RBC % (auto) 2.5 Blood Smear Review Platelet Estimate Normal Giant Platelets 1+ Poikilocytosis Present Anisocytosis Present Microcytosis Present Echinocytes 1+ Schistocytes 1+ PT INR APTT PTT Ratio Sodium 134 L Potassium 4.0 Chloride 95 L Carbon Dioxide 30 Anion Gap 9.0 BUN 69 H Creatinine 3.71 H D Est Cr Clr Drug Dosing 16.6 Est GFR ( Amer) 16.5 Est GFR (Non-Af Amer) 14.2 BUN/Creatinine Ratio 18.6 Glucose 90 Calcium 8.1 L Magnesium 2.8 H Total Bilirubin 1.0 AST 37 ALT 26 Alkaline Phosphatase 120 H Total Protein 7.3 Albumin 2.1 L Globulin 5.2 H Albumin/Globulin Ratio 0.4 L Urine Color Urine Appearance Urine pH Ur Specific [place] Urine Protein Urine Glucose (UA) Urine Ketones Urine Blood Urine Nitrite Urine Bilirubin Urine Urobilinogen Ur Leukocyte Esterase Urine WBC (Auto) Urine RBC (Auto) U Hyaline Cast (Auto) U Epithel Cells (Auto) Urine Bacteria (Auto) Urine Crystals Uric Acid Crystals Urine Yeast Ur Random Creatinine Ur Random Sodium Random Vancomycin 18.4 08/28/18 05:43 WBC RBC Hgb Hct MCV MCH MCHC RDW Std Deviation RDW Coeff of [place] Plt Count Immature Gran % (Auto) Neut % (Auto) Lymph % (Auto) Nance % (Auto) Eos % (Auto) Baso % (Auto) Immature Gran # (Auto) Neut # (Auto) Lymph # (Auto) [place] # (Auto) Eos # (Auto) Baso # (Auto) Absolute Nucleated RBC Nucleated RBC % (auto) Blood Smear Review Platelet Estimate Giant Platelets Poikilocytosis Anisocytosis Microcytosis Echinocytes Schistocytes PT INR APTT 69.1 H* PTT Ratio 2.5 Sodium Potassium Chloride Carbon Dioxide Anion Gap BUN Creatinine Est Cr Clr Drug Dosing Est GFR ( Amer) Est GFR (Non-Af Amer) BUN/Creatinine Ratio Glucose Calcium Magnesium Total Bilirubin AST ALT Alkaline Phosphatase Total Protein Albumin Globulin Albumin/Globulin Ratio Urine Color Urine Appearance Urine pH Ur Specific [place] Urine Protein Urine Glucose (UA) Urine Ketones Urine Blood Urine Nitrite Urine Bilirubin Urine Urobilinogen Ur Leukocyte Esterase Urine WBC (Auto) Urine RBC (Auto) U Hyaline Cast (Auto) U Epithel Cells (Auto) Urine Bacteria (Auto) Urine Crystals Uric Acid Crystals Urine Yeast Ur Random Creatinine Ur Random Sodium Random Vancomycin
[2018-08-28] MEDS: Heparin Adult STANDARD Wt-Based Dextrose 5% 25,000 units/500 mL IV SCH (11:10)
[2018-08-28 13:33] LABS: BUN Creatinine Ratio 18.1 (10-20); Creatinine Clr Calc Pharmacy 15.8 ml/min; Est GFR (African American) 15.5; Est GFR (Non-African American) 13.4; Potassium 4.3 mmol/L (3.5-5.1)
--- NOTE | 2018-08-28 14:27 | Infectious Disease Progress Nt ---
Date of Service August 28, 2018 Assessment & Plan (1) Cellulitis of left lower extremity: Patient with left lower extremity ischemia with open wounds with secondary cellulitis. Found to have inoperable vascular compromise. Given some improvement in foot, plan to treat conservatively with IV antibiotics for now. Length of IV will be determined by clinical response. Will follow. (2) Ischemia of left lower extremity: Subjective Patient seen in follow-up for left leg infection in the setting of ischemia. Appears unchanged. Hemodynamically stable. Afebrile. Appears to be tolerating antibiotics. Review of Systems Review of Systems: All systems reviewed & are unremarkable except as noted in HPI & below Physical Exam Constitutional: WD/WN, vitals as above comfortable; no acute distress Eyes: PERRL, conjunctivae normal, anicteric sclerae ENMT: external ear and nose normal, oropharynx normal Neck: trachea midline, no thyromegaly neck nontender Respiratory: normal respiratory effort, lungs clear to auscultation normal percussion; does not use accessory muscles Cardiovascular: Rate/Rhythm: regular rate and regular rhythm Heart Sounds: normal S1 and normal S2; no gallop, no murmur and no cardiac rub Vessels: no JVD Gastrointestinal (Abdomen): normal bowel sounds, soft, nontender, no hepatosplenomegaly Musculoskeletal: no cyanosis or clubbing, extremities motor strength 5/5 Spine: thoracic spine normal to inspection and lumbar spine normal to inspection; no cervical spinal tenderness Skin: no rashes, warm and dry normal turgor; no lesions Neurologic: moves all extremities; no focal motor deficits Psychiatric: Orientation: alert and cooperative Lymphatic: no cervical or axillary lymphadenopathy no inguinal lymphadenopathy Results & Data Vital Signs (Past 12 Hours) Vital Signs Temp Pulse Pulse Pulse Resp BP Pulse Ox 08/28/18 11:30 36.8 C 86 18 139/71 95 08/28/18 07:51 36.8 C 74 18 121/69 98 08/28/18 07:27 81 08/28/18 05:07 37.0 C 78 19 111/69 96 Laboratory Results Short CBC 08/28/18 Range/Units 05:43 WBC 14.81 H (4.8-10.8) K/uL Hgb 9.6 L (14.0-18.0) g/dL Hct 33.2 L (42-52) % Plt Count 224 (130-400) K/uL BMP 08/27/18 08/28/18 08/28/18 20:16 05:43 12:55 Sodium 134 L 133 L Potassium 4.0 4.3 Chloride 95 L 95 L Carbon Dioxide 30 30 BUN 69 H 70 H Creatinine 3.37 H D 3.71 H D 3.89 H Glucose 90 142 H Calcium 8.1 L 8.0 L Liver Function 08/28/18 Range/Units 05:43 Total Bilirubin 1.0 (0.2-1) mg/dl AST 37 (15-37) U/L ALT 26 (12-78) U/L Alkaline Phosphatase 120 H (45-117) U/L Albumin 2.1 L (3.4-5.0) gm/dl Urine 08/27/18 Range/Units 20:30 Urine Color Dark Yellow Urine Appearance Turbid A (Clear) Urine pH 5.0 (4.5-7.5) Ur Specific [place] 1.022 (1.000-1.030) Urine Protein 2+ H (Negative) Urine Glucose (UA) Negative (Negative) Diagnostic Findings Microbiology 08/25/18 03:04 Blood Blood Culture - Preliminary No growth to date. 08/25/18 01:35 Blood Blood Culture - Preliminary No growth to date.
[2018-08-28 14:31] LABS: Partial Thromboplastin Ratio 2.1
[2018-08-28 14:44] LABS: Partial Thromboplastin Time 56.1 Seconds (21.0-31.0)
[2018-08-28] MEDS: ACETAMINOPHEN 1000 MG/100 ML IV IV PRN (16:44)
[2018-08-28] MEDS: QUETIAPINE FUMARATE 25 MG TABLET PO SCH (20:26)
[2018-08-28] MEDS: ATORVASTATIN 40 MG TAB PO SCH (20:27)
[2018-08-28] MEDS: TAMSULOSIN HCL 0.4 MG CAP PO SCH (20:27)
[2018-08-28] MEDS: DONEPEZIL HCL 5 MG TAB PO SCH (20:27)
--- NOTE | 2018-08-28 22:18 | Hospitalist Progress Note ---
Date of Service August 28, 2018 Assessment & Plan (1) Ischemia of left lower extremity: PAD with ischemia of left lower extremity/cellulitis left lower extremity due to occlusion acutely of left posterior tibial and dorsalis pedis arteries Too high risk for intervention endovascularly due to renal failure as per Vascular Vascular has now signed off saying that his foot is looking better and will not perform surgery at this time unless develops intractable pain or signs of worsening infection Leukocytosis is improved today, remains afebrile but also getting tylenol for pain -he is not really able to communicate pain effectively but will watch for increased agitation -continue vancomycin IV and Zosyn IV given MRSA positive on nasal swab- appreciate Pharmacy dosing Vanc -continue heparin infusion and holding home Eliquis for now in case of need for surgical intervention, but also in the setting of renal failure, Eliquis may not be the best choice APpreciate infectious disease consultation -Continue pain control with tylenol, morphine -continue to observe for worsening (2) Cellulitis of left lower extremity: Seems improved but with poor blood flow as above -Continue vancomycin and Zosyn (3) Peripheral vascular disease: As above. (4) PORTER (acute kidney injury): Creatinine continues to rise to 3.8 this evening, has developed oliguria -Initially was diuresed with IV lasix and albumin on admission, with severe systolic CHF, could be cardiorenal syndrome Also is on vanco Urine sodium not consistent with ATN as per nephrology Seems dry on examination with rising BUN as well -Nephro consult appreciated -Continue to hold lasix -Continue Preciado -Received 500 mL's of Normosol solution and so far no improvement in renal function -follow BMP in the morning -Would not be a good dialysis candidate -Discussed poor prognosis with his son (5) Pneumonia: Pneumonia/pleural effusion- Treat with antibiotics as above. (6) NSTEMI (non-ST elevated myocardial infarction): Troponin on admission was 0.899, mild elevation and trended, flat curve Myocardial demand ischemia. No acute EKG changes. ECHO with severely reduced LVEF 20-25%. Consult Cardiology appreciated-plan for medical management given renal failure -continue atorvastatin, heparin gtt, metoprolol (7) Hypercholesteremia: Continue atorvastatin 80 mg at bedtime (8) Dementia: Fairly advanced Continue Seroquel, melatonin, Keppra and Aricept. (9) HTN (hypertension): stable -continue metoprolol (10) GERD (gastroesophageal reflux disease): continue PPI (11) C. 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 -avoid nephrotoxins -renally dose meds -consult Nephro (16) Paroxysmal A-fib: had 8 hours of Afib with rates in low 100s on 08/26, spontaneously converted to NSR and has not had any more since then -continue increased dose metoprolol tartrate 75 bid and consider switching to Toprol XL 150 on discharge -on heparin gtt and eventually will go back on Eliquis for AC if renal function improves -appreciate Cardio following (17) DVT prophylaxis: heparin gtt Dispo-stay on tele, palliative care consultation planned for tomorrow and son will be here to discuss goals of care moving forward given worsening renal function, ischemic limb, and severe CHF in the setting of dementia Subjective Patient still continues to moan all day long and his son tells me in the phone that this is been normal for the patient. When asked about pain, the patient says he has none. Denies abdominal pain or foot pain. He asks "what is the next step?" He has no idea where he is or why he is in the hospital. He is eating and drinking minimally as per nursing. His urine output has decreased quite a bit. Telemetry with normal sinus rhythm with rates in the 70s to 80s I discussed his care with his son on the phone at length today. Given the worsening renal failure, ischemic foot and infection, severe congestive heart failure, and dementia, the son is in favor of obtaining a palliative care consultation and discussing moving towards comfort measures. Review of Systems Review of Systems: Unobtainable due to cognitive status Physical Exam Constitutional: well developed Eyes: PERRL, conjunctivae normal, anicteric sclerae Neck: trachea midline, no thyromegaly Respiratory: normal respiratory effort, lungs clear to auscultation Cardiovascular: RRR, no murmur, no edema Gastrointestinal (Abdomen): normal bowel sounds, soft, nontender, no hepatosplenomegaly Musculoskeletal: Extremities: + foot abnormality (left foot cool); + extremities abnormal to inspection (left toes with blue-purple discoloration,dry peeling skin,ulcer dorsal foot), no cyanosis and no clubbing Skin: + erythema (mild erythema left leg, improved) Neurologic: moves all extremities and awake; no focal motor deficits Psychiatric: Orientation: alert, oriented to person and cooperative; + not oriented to place and + not oriented to time Genitourinary: no penile swelling (Preciado in place) Results & Data Vital Signs (Past 12 Hours) Vital Signs Temp Pulse Pulse Pulse Resp BP BP 08/28/18 19:16 36.7 C 82 22 122/71 08/28/18 17:28 74 08/28/18 15:21 36.6 C 79 18 118/72 08/28/18 11:30 36.8 C 86 18 139/71 Pulse Ox 08/28/18 19:16 92 08/28/18 17:28 08/28/18 15:21 95 08/28/18 11:30 95 Laboratory Results 08/28/18 08/28/18 08/28/18 Range/Units 14:04 12:55 05:43 WBC (4.8-10.8) K/uL RBC (4.7-6.1) M/uL Hgb (14.0-18.0) g/dL Hct (42-52) % MCV (80-100) fL MCH (25-34) pg MCHC (32-36) g/dL RDW Std Deviation (36.4-46.3) fL RDW Coeff of [place] (11.5-14.5) % Plt Count (130-400) K/uL Immature Gran % (Auto) % Neut % (Auto) % Lymph % (Auto) % [place] % (Auto) % Eos % (Auto) % Baso % (Auto) % Immature Gran # (Auto) (0.00-0.02) K/uL Neut # (Auto) (1.4-6.5) K/uL Lymph # (Auto) (1.2-3.4) K/uL [place] # (Auto) (0.11-0.59) K/uL Eos # (Auto) (0-0.5) K/uL Baso # (Auto) (0-0.2) K/uL Absolute Nucleated RBC (0-0) K/uL Nucleated RBC % (auto) % Platelet Estimate (Normal) Giant Platelets Poikilocytosis Anisocytosis Microcytosis Echinocytes Schistocytes PT (9.0-12.0) Seconds INR (0.9-1.1) APTT 56.1 H* 69.1 H* (21.0-31.0) Seconds PTT Ratio 2.1 2.5 Sodium 133 L (136-145) mmol/L Potassium 4.3 (3.5-5.1) mmol/L Chloride 95 L (98-107) mmol/L Carbon Dioxide 30 (21-32) mmol/L Anion Gap 8.0 (3-11) BUN 70 H (7-18) mg/dl Creatinine 3.89 H (0.6-1.4) mg/dl Est Cr Clr Drug Dosing 15.8 ml/min Est GFR ( Amer) 15.5 Est GFR (Non-Af Amer) 13.4 BUN/Creatinine Ratio 18.1 (10-20) Glucose 142 H (70-99) mg/dl Calcium 8.0 L (8.5-10.1) mg/dl Magnesium (1.8-2.4) mg/dl Total Bilirubin (0.2-1) mg/dl AST (15-37) U/L ALT (12-78) U/L Alkaline Phosphatase (45-117) U/L Total Protein (6.4-8.2) gm/dl Albumin (3.4-5.0) gm/dl Globulin (2.5-4.0) gm/dl Albumin/Globulin Ratio (0.9-2) Random Vancomycin mcg/ml 08/28/18 08/28/18 08/28/18 Range/Units 05:43 05:43 05:43 WBC 14.81 H (4.8-10.8) K/uL RBC 4.39 L (4.7-6.1) M/uL Hgb 9.6 L (14.0-18.0) g/dL Hct 33.2 L (42-52) % MCV 75.6 L (80-100) fL MCH 21.9 L (25-34) pg MCHC 28.9 L (32-36) g/dL RDW Std Deviation 78.2 H (36.4-46.3) fL RDW Coeff of [place] 28.4 H (11.5-14.5) % Plt Count 224 (130-400) K/uL Immature Gran % (Auto) 1.0 % Neut % (Auto) 71.5 % Lymph % (Auto) 12.5 % [place] % (Auto) 7.4 % Eos % (Auto) 2.1 % Baso % (Auto) 5.5 % Immature Gran # (Auto) 0.15 H (0.00-0.02) K/uL Neut # (Auto) 10.59 H (1.4-6.5) K/uL Lymph # (Auto) 1.85 (1.2-3.4) K/uL [place] # (Auto) 1.09 H (0.11-0.59) K/uL Eos # (Auto) 0.31 (0-0.5) K/uL Baso # (Auto) 0.82 H (0-0.2) K/uL Absolute Nucleated RBC 0.37 H (0-0) K/uL Nucleated RBC % (auto) 2.5 % Platelet Estimate Normal (Normal) Giant Platelets 1+ Poikilocytosis Present Anisocytosis Present Microcytosis Present Echinocytes 1+ Schistocytes 1+ PT (9.0-12.0) Seconds INR (0.9-1.1) APTT (21.0-31.0) Seconds PTT Ratio Sodium 134 L (136-145) mmol/L Potassium 4.0 (3.5-5.1) mmol/L Chloride 95 L (98-107) mmol/L Carbon Dioxide 30 (21-32) mmol/L Anion Gap 9.0 (3-11) BUN 69 H (7-18) mg/dl Creatinine 3.71 H D (0.6-1.4) mg/dl Est Cr Clr Drug Dosing 16.6 ml/min Est GFR ( Amer) 16.5 Est GFR (Non-Af Amer) 14.2 BUN/Creatinine Ratio 18.6 (10-20) Glucose 90 (70-99) mg/dl Calcium 8.1 L (8.5-10.1) mg/dl Magnesium 2.8 H (1.8-2.4) mg/dl Total Bilirubin 1.0 (0.2-1) mg/dl AST 37 (15-37) U/L ALT 26 (12-78) U/L Alkaline Phosphatase 120 H (45-117) U/L Total Protein 7.3 (6.4-8.2) gm/dl Albumin 2.1 L (3.4-5.0) gm/dl Globulin 5.2 H (2.5-4.0) gm/dl Albumin/Globulin Ratio 0.4 L (0.9-2) Random Vancomycin 18.4 mcg/ml 08/28/18 Range/Units 05:43 WBC (4.8-10.8) K/uL RBC (4.7-6.1) M/uL Hgb (14.0-18.0) g/dL Hct (42-52) % MCV (80-100) fL MCH (25-34) pg MCHC (32-36) g/dL RDW Std Deviation (36.4-46.3) fL RDW Coeff of [place] (11.5-14.5) % Plt Count (130-400) K/uL Immature Gran % (Auto) % Neut % (Auto) % Lymph % (Auto) % [place] % (Auto) % Eos % (Auto) % Baso % (Auto) % Immature Gran # (Auto) (0.00-0.02) K/uL Neut # (Auto) (1.4-6.5) K/uL Lymph # (Auto) (1.2-3.4) K/uL [place] # (Auto) (0.11-0.59) K/uL Eos # (Auto) (0-0.5) K/uL Baso # (Auto) (0-0.2) K/uL Absolute Nucleated RBC (0-0) K/uL Nucleated RBC % (auto) % Platelet Estimate (Normal) Giant Platelets Poikilocytosis Anisocytosis Microcytosis Echinocytes Schistocytes PT 15.0 H (9.0-12.0) Seconds INR 1.5 H (0.9-1.1) APTT (21.0-31.0) Seconds PTT Ratio Sodium (136-145) mmol/L Potassium (3.5-5.1) mmol/L Chloride (98-107) mmol/L Carbon Dioxide (21-32) mmol/L Anion Gap (3-11) BUN (7-18) mg/dl Creatinine (0.6-1.4) mg/dl Est Cr Clr Drug Dosing ml/min Est GFR ( Amer) Est GFR (Non-Af Amer) BUN/Creatinine Ratio (10-20) Glucose (70-99) mg/dl Calcium (8.5-10.1) mg/dl Magnesium (1.8-2.4) mg/dl Total Bilirubin (0.2-1) mg/dl AST (15-37) U/L ALT (12-78) U/L Alkaline Phosphatase (45-117) U/L Total Protein (6.4-8.2) gm/dl Albumin (3.4-5.0) gm/dl Globulin (2.5-4.0) gm/dl Albumin/Globulin Ratio (0.9-2) Random Vancomycin mcg/ml (1) Pneumonia Laterality: right Lung location: lower lobe of lung Pneumonia type: due to unspecified organism Qualified Code(s): J18.1 - Lobar pneumonia, unspecified organism
[2018-08-29] MEDS: Heparin Adult STANDARD Wt-Based Dextrose 5% 25,000 units/500 mL IV SCH (02:49)
[2018-08-29] MEDS: MoRPHine SULFATE 2 MG/ML CARP IV PRN (02:49)
[2018-08-29 07:22] LABS: Partial Thromboplastin Ratio 1.8
[2018-08-29 07:29] LABS: BUN Creatinine Ratio 17.3 (10-20); Calcium 8.1 mg/dl (8.5-10.1); Creatinine Clr Calc Pharmacy 13.8 ml/min; Est GFR (African American) 13.2; Est GFR (Non-African American) 11.4; Magnesium 2.8 mg/dl (1.8-2.4); Potassium 3.8 mmol/L (3.5-5.1)
[2018-08-29] MEDS: PIPERACILLIN/TAZOBACTAM 3.375 GM in DEXTROSE 5% 100 ML IV SCH (07:29)
[2018-08-29] MEDS: FINASTERIDE 5 MG TAB PO SCH (07:29)
[2018-08-29] MEDS: FOLIC ACID 1 MG TAB PO SCH (07:29)
[2018-08-29] MEDS: PANTOprazole 40 MG TAB PO SCH (07:30)
[2018-08-29] MEDS: levETIRAcetam 250 MG TAB PO SCH (07:30)
[2018-08-29] MEDS: CEROVITE ADV FORMULA TAB PO SCH (07:30)
[2018-08-29] MEDS: METOPROLOL TARTRATE 25 MG TAB PO SCH ×2 (07:30→21:43)
[2018-08-29 07:33] LABS: Partial Thromboplastin Time 49.3 Seconds (21.0-31.0)
[2018-08-29] MEDS: SODIUM CHLORIDE 0.65% NA SOLN 45 ML (OCEAN) SCH (07:41)
[2018-08-29 07:55] LABS: Hematocrit (blood only) 33.2 % (42-52); Hemoglobin 9.7 g/dL (14.0-18.0); Mean Corpuscular Hgb Conc 29.2 g/dL (32-36); Mean Corpuscular Volume 75.5 fL (80-100); Nucleated RBC # (auto) 0.36 K/uL (0-0); Nucleated RBC % (auto) 2.3 %; Platelet Count 244 K/uL (130-400); RDW Coefficient of Variation 28.3 % (11.5-14.5); RDW Standard Deviation 77.6 fL (36.4-46.3); White Blood Count 15.79 K/uL (4.8-10.8)
[2018-08-29 07:56] LABS: Hypochromasia Present; Poikilocytosis Present; Polychromasia 1+
[2018-08-29 09:02] LABS: ALC (manual) 2.37 K/uL (1.2-3.4); Basophils # (manual) 1.26 K/uL (0-0.2); Eosinophils # (manual) 0.79 K/uL (0-0.5); Lymphocytes # (manual) 2.37 K/uL (1.2-3.4); Monocytes # (manual) 0.79 K/uL (0.11-0.59)
--- NOTE | 2018-08-29 09:32 | Nephrology Progress Note ---
Date of Service August 29, 2018 Assessment & Plan (1) LELE (acute kidney injury): -- Continues to appear dehydrated -- Minimal response to 500 ml bolus yesterday -- UOP oliguric -- Unfortunately patient did not tolerate IVF intravascular volume expansion given underlying cardiac disease -- Unfortunately, prognosis is guarded -- Palliative care consult pending -- Preciado draining concentrated urine -- Vanco level 16 remains therapeutic -- Medications acceptable for kidney function -- Due to medical comorbidities, dialysis would not be expected to provide benefit -- Document strict I/O's -- Repeat metabolic profile tomorrow AM, unfortunately I do not expect any improvement in creatinine (2) CRI (chronic renal insufficiency): -- Creatinine in July 2.18 mg/dL -- No prior nephrology evaluation available for review -- Prognosis is guarded (3) Ischemic cardiomyopathy: -- Diuretics have been held -- Patient is not in significantly decompensated CHF at this time -- Will be cautious with use of IVF and strongly encourage oral intake (4) Cellulitis of left lower extremity: -- ID following -- Remains on Zosyn -- Vanco level remains therapeutic (5) Ischemia of left lower extremity: -- Vascular surgery noted no surgical intervention due to risk -- Remains on heparin gtt Subjective No acute events overnight. Remains slightly agitated. Lb states that he feels constipated this morning. Appetite improved. No fevers or chills. Denies significant leg pain at this time. Preciado continues to drain dark concentrated urine Review of Systems Review of Systems: All systems reviewed & are unremarkable except as noted in HPI & below limited due to mental status Physical Exam Constitutional: + cachectic, + frail appearing and + in distress Eyes: no scleral abnormality and no corneal abnormality ENMT: Mouth: + dry oral mucous membranes; no oral mucosal abnormality Neck: trachea midline Thyroid: normal thyroid Respiratory: no respiratory distress Auscultation: + diminished lung sounds and + rales Cardiovascular: Heart Sounds: normal S1 and normal S2; no murmur and no cardiac rub Vessels: + JVD Extremities: no edema Gastrointestinal (Abdomen): Percussion/Palpation: abdomen soft; abdomen nontender Musculoskeletal: Extremities: no cyanosis and no clubbing Skin: + turgor decreased; no rashes Neurologic: Motor/Sensory: no tremor and no asterixis Psychiatric: Eye Contact: + poor eye contact Results & Data Vital Signs (Past 12 Hours) Vital Signs Temp Pulse Resp BP Pulse Ox 08/29/18 07:59 36.6 C 85 20 98 08/29/18 07:40 136/82 08/29/18 02:42 37.0 C 81 19 119/73 96 08/28/18 23:52 37.0 C 74 21 127/87 98 Laboratory Results Laboratory Results - last 24 hr 08/28/18 08/28/18 08/29/18 12:55 14:04 06:15 WBC RBC Hgb Hct MCV MCH MCHC RDW Std Deviation RDW Coeff of Eulalia Plt Count Absolute Nucleated RBC Nucleated RBC % (auto) Neutrophils % (Manual) Lymphocytes % (Manual) Monocytes % (Manual) Eosinophils % (Manual) Basophils % (Manual) Neutrophils # (Manual) Total Absolute Neuts Lymphocytes # (Manual) Total Abs Lymphocytes Monocytes # (Manual) Eosinophils # (Manual) Basophils # (Manual) Polychromasia Hypochromasia Poikilocytosis APTT 56.1 H* PTT Ratio 2.1 Sodium 133 L 134 L Potassium 4.3 3.8 Chloride 95 L 94 L Carbon Dioxide 30 30 Anion Gap 8.0 10.0 BUN 70 H 77 H Creatinine 3.89 H 4.45 H D Est Cr Clr Drug Dosing 15.8 13.8 Est GFR ( Amer) 15.5 13.2 Est GFR (Non-Af Amer) 13.4 11.4 BUN/Creatinine Ratio 18.1 17.3 Glucose 142 H 85 Calcium 8.0 L 8.1 L Magnesium 2.8 H Random Vancomycin 08/29/18 08/29/18 08/29/18 06:15 06:15 06:15 WBC 15.79 H RBC 4.40 L Hgb 9.7 L Hct 33.2 L MCV 75.5 L MCH 22.0 L MCHC 29.2 L RDW Std Deviation 77.6 H RDW Coeff of Eulalia 28.3 H Plt Count 244 Absolute Nucleated RBC 0.36 H Nucleated RBC % (auto) 2.3 Neutrophils % (Manual) 67.0 Lymphocytes % (Manual) 15.0 Monocytes % (Manual) 5.0 Eosinophils % (Manual) 5.0 Basophils % (Manual) 8.0 Neutrophils # (Manual) 10.58 H Total Absolute Neuts 10.58 H Lymphocytes # (Manual) 2.37 Total Abs Lymphocytes 2.37 Monocytes # (Manual) 0.79 H Eosinophils # (Manual) 0.79 H Basophils # (Manual) 1.26 H Polychromasia 1+ Hypochromasia Present Poikilocytosis Present APTT 49.3 H* PTT Ratio 1.8 Sodium Potassium Chloride Carbon Dioxide Anion Gap BUN Creatinine Est Cr Clr Drug Dosing Est GFR ( Amer) Est GFR (Non-Af Amer) BUN/Creatinine Ratio Glucose Calcium Magnesium Random Vancomycin 16.3
--- NOTE | 2018-08-29 10:14 | Infectious Disease Progress Nt ---
Date of Service August 29, 2018 Assessment & Plan (1) Cellulitis of left lower extremity: Patient with left lower extremity ischemia with open wounds with secondary cellulitis. Found to have inoperable vascular compromise. Given some improvement in foot, plan to treat conservatively with IV Zosyn and vancomycin for now. Palliative care consultation to be considered. Will follow. (2) Ischemia of left lower extremity: Subjective Patient seen in follow-up for left leg infection. No change in clinical status apparent. States he is constipated. No fever. Appears to be tolerating antibiotic without apparent difficulty. Physical Exam Constitutional: WD/WN, vitals as above comfortable; no acute distress Eyes: PERRL, conjunctivae normal, anicteric sclerae ENMT: external ear and nose normal, oropharynx normal Neck: trachea midline, no thyromegaly neck nontender Respiratory: normal respiratory effort, lungs clear to auscultation normal percussion; does not use accessory muscles Cardiovascular: Rate/Rhythm: regular rate and regular rhythm Heart Sounds: normal S1 and normal S2; no gallop, no murmur and no cardiac rub Vessels: no JVD Gastrointestinal (Abdomen): normal bowel sounds, soft, nontender, no hepatosplenomegaly Musculoskeletal: no cyanosis or clubbing, extremities motor strength 5/5 Spine: thoracic spine normal to inspection and lumbar spine normal to inspection; no cervical spinal tenderness Skin: no rashes, warm and dry normal turgor Ischemic left leg and foot with erythema of leg, erythema buttocks Neurologic: moves all extremities; no focal motor deficits Psychiatric: Orientation: alert and cooperative Lymphatic: no cervical or axillary lymphadenopathy no inguinal lymphadenopathy Results & Data Vital Signs (Past 12 Hours) Vital Signs Temp Pulse Resp BP Pulse Ox 08/29/18 07:59 36.6 C 85 20 98 08/29/18 07:40 136/82 08/29/18 02:42 37.0 C 81 19 119/73 96 08/28/18 23:52 37.0 C 74 21 127/87 98 Laboratory Results Short CBC 08/29/18 Range/Units 06:15 WBC 15.79 H (4.8-10.8) K/uL Hgb 9.7 L (14.0-18.0) g/dL Hct 33.2 L (42-52) % Plt Count 244 (130-400) K/uL BMP 08/28/18 08/29/18 12:55 06:15 Sodium 133 L 134 L Potassium 4.3 3.8 Chloride 95 L 94 L Carbon Dioxide 30 30 BUN 70 H 77 H Creatinine 3.89 H 4.45 H D Glucose 142 H 85 Calcium 8.0 L 8.1 L Diagnostic Findings Microbiology 08/27/18 20:30 Urine,Indwelling Cath Urine Culture - Preliminary Kathe albicans 08/25/18 03:04 Blood Blood Culture - Preliminary No growth to date. 08/25/18 01:35 Blood Blood Culture - Preliminary No growth to date.
--- NOTE | 2018-08-29 12:41 | Palliative Care Consultation ---
Date of Consultation August 29, 2018 Assessment & Plan (1) Goals of care, counseling/discussion: -83 year old male patient with PMH dementia, htn, hypercholesterolemia, PVD, prostate cancer, dysphagia, presented to the hospital four days ago with c/o increased SOB, LLE swelling and pain. He presented from the [facility] where he was apparently at for some rehab. Upon admission, patient's LLE found to be ischemic, venous doppler showed occlusion. Vascular surgery consulted who deemed patient a poor surgical candidate, but stated that the leg may need to be amputated. Troponin was elevated at the time of admission, also found to have paroxysmal afib. Cardiology consulted as well. Echocardiogram showed severely reduced left ventricular systolic function, large area of akinesis of the anterior wall and apex, all other hall hypokinetic, and an EF of 20-25%. Creatinine elevated on admission, patient does have reported history CKD. Creatinine has continued to rise from 2.32 to 4.45 today. Poor urine output-- could be cardiorenal syndrome. Patient was on Eliquis prior to arrival, so he is being bridged at this time with heparin gtt. He is on IV abx for LLE infection/cellulitis, MRSA positive in nares. On Zosyn and Vanc. Given patient's many comorbidities including heart failure, worsening renal failure, advanced dementia, and poor functional status, palliative care is consulted to discuss goals of care with family. -Met with patient in room 231 this morning. He knew he was in the hospital but said, "I have no idea," to every other question. He moans loudly throughout conversation but denies being in pain. -Returned to the patient's room when his three children, Jairon, Wan, and Tiffani, were at the bedside. Discussed his medical problems at length. Attempted to discuss goals of care with patient per the familys request, but he is unable to understand. -After discussion, patient's family states that patient would not want to have his life prolonged in this state or by heroic measures. He would NOT want to undergo dialysis. -Given his decline and multi organ system failure, will transition to comfort measures only. Stop labs, abx, all unnecessary medications. -Transfer to regular medical floor. -If patient remains stable and able to transfer out of hospital, family would like him to go to a facility closer to where they are. There has been a referral to a SNF in their area (which I believe is the [facility]). manager golf updated and will work on discharge planning. -Will convert PRN morphine to Roxanol 5mg PO/SL Q3h PRN pain or SOB to be sure patient can be managed on PO medications. -Continue Preciado catheter for comfort. -POLST form completed as follows: DNR, comfort measures only, abx with comfort as the goal, no artificial hydration/nutrition. Signed by sonJairon -Will continue to follow. -PPS 30%. (2) LELE (acute kidney injury): (3) CHF (congestive heart failure): (4) Ischemic cardiomyopathy: (5) Ischemia of left lower extremity: (6) Pneumonia: Laterality: right Lung location: lower lobe of lung Pneumonia type: due to unspecified organism Qualified Code(s): J18.1 - Lobar pneumonia, unspecified organism Supervising Physician Co-Signing Physician Notes Chart reviewed, patient seen and examined, no family at bedside. Collaborated with SWATHI Sun. Patient is an 83-year-old male with significant dementia who was sent to [facility] from [facility] for worsening left lower foot ischemia. PE: Patient awake and alert, oriented to self only HEENT: EOMI Respiratory: Unlabored, clear breath sounds CV: Regular rate Abdomen: Soft, nontender Extremities: Eschar on left great toe, other toes with cyanosis Neuro: Patient alert, oriented to self only Agree with above note, assessment and plan as per SWATHI Sun - will continue to follow and assist family with medical decision making. History of Present Illness Attending Physician: Meagan Claros MD History of Present Illness This 83 year old male patient with PMH dementia, htn, hypercholesterolemia, PVD, prostate cancer, dysphagia, presented to the hospital four days ago with c/o increased SOB, LLE swelling and pain. He presented from the [facility] where he was apparently at for some rehab. Upon admission, patient's LLE found to be ischemic, venous doppler showed occlusion. Vascular surgery consulted who deemed patient a poor surgical candidate, but stated that the leg may need to be amputated. Troponin was elevated at the time of admission, also found to have paroxysmal afib. Cardiology consulted as well. Echocardiogram showed severely reduced left ventricular systolic function, large area of akinesis of the anterior wall and apex, all other hall hypokinetic, and an EF of 20-25%. Creatinine elevated on admission, patient does have reported history CKD. Creatinine has continued to rise from 2.32 to 4.45 today. Poor urine output-- could be cardiorenal syndrome. Patient was on Eliquis prior to arrival, so he is being bridged at this time with heparin gtt. He is on IV abx for LLE infection/cellulitis, MRSA positive in nares. On Zosyn and Vanc. Given patient's many comorbidities including heart failure, worsening renal failure, advanced dementia, and poor functional status, palliative care is consulted to discuss goals of care with family. Thank you kindly for this consult. I will follow. Allergies Allergy/AdvReac Type Severity Reaction Status Date / Time No Known Allergies Allergy Unverified 08/25/18 02:56 Home Medications Home Medications Medication Instructions Recorded Confirmed Type Saccharomyces boulardii [Probiotic 250 mg PO DAILY 08/25/18 08/25/18 History (S.boulardii)] acetaminophen 650 mg PO Q6H PRN 08/25/18 08/25/18 History acetaminophen 650 mg PO Q6H PRN MDD 3G/24HRS 08/25/18 08/25/18 History apixaban [Eliquis] 2.5 mg PO BID 08/25/18 08/25/18 History atorvastatin [Lipitor] 80 mg PO HS 08/25/18 08/25/18 History donepezil [Aricept] 5 mg PO HS 08/25/18 08/25/18 History finasteride 5 mg PO DAILY 08/25/18 08/25/18 History folic acid 1 mg PO DAILY 08/25/18 08/25/18 History furosemide [Lasix] 80 mg PO BID 08/25/18 08/25/18 History hydrocortisone [Anusol-HC] 1 applic TX Q12 PRN 08/25/18 08/25/18 History hydrocortisone acetate [Anusol-HC] 25 mg TX Q12 PRN 08/25/18 08/25/18 History ipratropium-albuterol 3 ml INHALATION Q6 PRN 08/25/18 08/25/18 History levetiracetam [Keppra] 250 mg PO BID 08/25/18 08/25/18 History melatonin 3 mg PO HS 08/25/18 08/25/18 History metoprolol tartrate 100 mg PO BID 08/25/18 08/25/18 History multivit,stress formula-zinc 1 tab PO DAILY 08/25/18 08/25/18 History [Stress Formula with Zinc] omeprazole 40 mg PO DAILY 08/25/18 08/25/18 History protein hydrolysate,milk [Liquid 30 ml PO BID 08/25/18 08/25/18 History Protein Fortifier] quetiapine [Seroquel] 12.5 mg PO HS 08/25/18 08/25/18 History sennosides-docusate sodium 2 tab PO . Q 24 HOURS PRN 08/25/18 08/25/18 History [Senna-S] sodium chloride [Reno Saline] 1 spray INTRANASAL DAILY 08/25/18 08/25/18 History tamsulosin 0.4 mg PO DAILY 08/25/18 08/25/18 History tramadol 50 mg PO Q6H PRN 08/25/18 08/25/18 History vancomycin 250 mg PO Q6 08/25/18 08/25/18 History Patient History Medical History Peripheral vascular disease Hypercholesteremia Insomnia HTN (hypertension) Dementia Prostate disorder GERD (gastroesophageal reflux disease) Bacterial enterocolitis Dysphagia Social History Preferred Language: Tamaz[place] Communication Ability: Impaired Equipment Manager Required: No Beliefs That Will Affect Care: None Current Living Situation: [facility] Feels Safe at Home: Yes Safety Concerns: Feels Safe At This Time Smoking Status: Unknown if ever smoked Review of Systems Constitutional: + weakness Respiratory: no cough and no dyspnea Cardiovascular: no chest pain Gastrointestinal: no abdominal pain and no nausea Psychiatric: no anxiety Physical Exam Constitutional: + ill appearing; no acute distress ENMT: Ears: no hearing impairment Neck: normal visual inspection Respiratory: + labored breathing (mildly) Auscultation: + diminished lung sounds, + crackles and + rhonchi Cardiovascular: Rate/Rhythm: regular rate and regular rhythm Vessels: + dorsalis pedis pulses abnormal (left pedal pulse absent. right pedal pulse present +2) Gastrointestinal (Abdomen): Inspection/Auscultation: abdomen normal to inspection and normal bowel sounds; abdomen not distended Percussion/Palpation: abdomen soft; abdomen nontender Skin: + ecchymosis Neurologic: moves all extremities, awake and + confused Psychiatric: Orientation: alert and oriented to person; + not oriented to place and + not oriented to time Insight: + poor insight Results & Data Vital Signs (Past 12 Hours) Vital Signs Temp Pulse Resp BP Pulse Ox 08/29/18 11:48 36.5 C 80 32 H 127/87 97 08/29/18 07:59 36.6 C 85 20 98 08/29/18 07:40 136/82 08/29/18 02:42 37.0 C 81 19 119/73 96 Time Spent Midlevel 100 minutes with >50% of time spent at bedside with patient and family discussing condition, GOC, and POLST form.
--- NOTE | 2018-08-29 13:11 | Hospitalist Progress Note ---
Date of Service August 29, 2018 Assessment & Plan (1) Ischemia of left lower extremity: PAD with ischemia of left lower extremity/cellulitis left lower extremity due to occlusion acutely of left posterior tibial and dorsalis pedis arteries Too high risk for intervention endovascularly due to renal failure as per Vascular Vascular has now signed off saying that his foot is stable and will not perform surgery at this time unless develops intractable pain or signs of worsening infection-however, now family has chosen to move towards comfort measures only given his worsening renal function and congestive heart failure-he would be extremely high risk for any kind of surgery Leukocytosis worsening and likely secondary to ischemic limb, remains afebrile but also getting tylenol for pain -he is not really able to communicate pain effectively but will watch for increased agitation -We will now discontinue vancomycin IV and Zosyn IV as moving towards comfort measures -Will discontinue heparin infusion and will not restart home Eliquis APpreciate infectious disease consultation -Continue pain control with tylenol, morphine/Roxanol -Can give lorazepam as needed for agitation -Transfer off telemetry -Appreciate palliative care consultation-moving towards comfort measures only but will continue usual home medicines except for the Eliquis until patient not able to take pills by mouth (2) Cellulitis of left lower extremity: Seems improved but with poor blood flow as above -Discontinuing antibiotics as above-moving towards comfort measures only (3) Peripheral vascular disease: As above. (4) PORTER (acute kidney injury): Creatinine continues to rise to 4.7, has developed significant oliguria -Initially was diuresed with IV lasix and albumin on admission, with severe systolic CHF, could be cardiorenal syndrome Also is on vanco Urine sodium not consistent with ATN as per nephrology He is not a good candidate for dialysis Family wants comfort measures and does not want any aggressive attempts at diuresis any further -Nephro consult appreciated -Continue Preciado -Received 500 mL's of Normosol solution and so far no improvement in renal function -No further labs needed (5) Pneumonia: Pneumonia/pleural effusion-was unclear if this was a true pneumonia versus just pleural effusion from CHF No diuretics or antibiotics needed (6) NSTEMI (non-ST elevated myocardial infarction): Troponin on admission was 0.899, mild elevation and trended, flat curve Myocardial demand ischemia. No acute EKG changes. ECHO with severely reduced LVEF 20-25%. Consult Cardiology appreciated-plan for medical management given renal failure -continue atorvastatin, metoprolol if taking p.o. (7) Hypercholesteremia: Will discontinue atorvastatin as no benefit at this point (8) Dementia: Fairly advanced Continue Seroquel as will help with any agitation at nighttime -Can continue Keppra to avoid seizures -We will discontinue Aricept as no benefit at this point. (9) HTN (hypertension): stable -continue metoprolol for now but could discontinue in the future if continues to decline (10) GERD (gastroesophageal reflux disease): continue PPI for comfort (11) C. 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 difficile gene and toxin again -Family okay with treating with p.o. vancomycin if he is able to take p.o. and is positive on his C. 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 with Porter and oliguria -consult Nephro appreciated (16) Paroxysmal A-fib: had 8 hours of Afib with rates in low 100s on 08/26, spontaneously converted to NSR and has not had any more since then -continue metoprolol tartrate 75 bid for now and stop all anticoagulation Also with nonsustained ventricular tachycardia with 11 beats on 08/29-nothing further to do is moving towards comfort measures only (17) DVT prophylaxis: Okay to stop heparin drip, DVT prophylaxis not indicated at this time given extremely poor prognosis and now on comfort measures Dispo-moved to medical floor, palliative care consultation greatly appreciated As patient is becoming oliguric and renal failure is worsening, expect him to pass away in the next 1 to 2 weeks Family is trying to get him transferred to a prison facility that is closer to where they live in [facility] Subjective Patient continues to moan repeatedly. Nursing reports that he has not slept in many nights and just moans all night long. Patient denies pain in his foot or pain in his abdomen. He remains afebrile. Palliative care met with the patient and his 2 sons and daughter today. I also met them at the bedside and discussed goals of care. They have decided to make their dad comfort measures, but would like limited use of antibiotics. We discussed the futility of continuing to treat his ischemic foot as he is not getting blood flow to that area, however he is having diarrhea and if C. difficile positive, they are okay with treating him with oral antibiotics for that. Telemetry with an 11 beat run of ventricular tachycardia, otherwise normal sinus rhythm Review of Systems Review of Systems: Unobtainable due to cognitive status Physical Exam Constitutional: well developed (Continuously moaning and making noises, mildly lethargic today) Neck: trachea midline, no thyromegaly Respiratory: normal respiratory effort, lungs clear to auscultation Cardiovascular: RRR, no murmur, no edema Gastrointestinal (Abdomen): normal bowel sounds, soft, nontender, no hepatosplenomegaly Musculoskeletal: Extremities: + foot abnormality (left foot cool); + extremities abnormal to inspection (left toes with blue-purple discoloration,dry peeling skin,ulcer dorsal foot), no cyanosis and no clubbing Skin: no erythema (Erythema of the left leg is now resolved) Neurologic: moves all extremities; no focal motor deficits Psychiatric: Orientation: oriented to person; + not oriented to place, + not oriented to time and + uncooperative Eye Contact: + poor eye contact Affect: + anxious affect Cognition: + recent memory not intact Insight: + severely impaired insight Genitourinary: Preciado catheter in place draining highly concentrated brown urine Results & Data Vital Signs (Past 12 Hours) Vital Signs Temp Pulse Resp BP Pulse Ox 08/29/18 11:48 36.5 C 80 32 H 127/87 97 08/29/18 07:59 36.6 C 85 20 98 08/29/18 07:40 136/82 08/29/18 02:42 37.0 C 81 19 119/73 96 Laboratory Results 08/29/18 08/29/18 08/29/18 Range/Units 06:15 06:15 06:15 WBC 15.79 H (4.8-10.8) K/uL RBC 4.40 L (4.7-6.1) M/uL Hgb 9.7 L (14.0-18.0) g/dL Hct 33.2 L (42-52) % MCV 75.5 L (80-100) fL MCH 22.0 L (25-34) pg MCHC 29.2 L (32-36) g/dL RDW Std Deviation 77.6 H (36.4-46.3) fL RDW Coeff of Eulalia 28.3 H (11.5-14.5) % Plt Count 244 (130-400) K/uL Absolute Nucleated RBC 0.36 H (0-0) K/uL Nucleated RBC % (auto) 2.3 % Neutrophils % (Manual) 67.0 % Lymphocytes % (Manual) 15.0 % Monocytes % (Manual) 5.0 % Eosinophils % (Manual) 5.0 % Basophils % (Manual) 8.0 % Neutrophils # (Manual) 10.58 H (1.4-6.5) K/uL Total Absolute Neuts 10.58 H (1.4-6.5) K/uL Lymphocytes # (Manual) 2.37 (1.2-3.4) K/uL Total Abs Lymphocytes 2.37 (1.2-3.4) K/uL Monocytes # (Manual) 0.79 H (0.11-0.59) K/uL Eosinophils # (Manual) 0.79 H (0-0.5) K/uL Basophils # (Manual) 1.26 H (0-0.2) K/uL Polychromasia 1+ Hypochromasia Present Poikilocytosis Present APTT 49.3 H* (21.0-31.0) Seconds PTT Ratio 1.8 Sodium (136-145) mmol/L Potassium (3.5-5.1) mmol/L Chloride (98-107) mmol/L Carbon Dioxide (21-32) mmol/L Anion Gap (3-11) BUN (7-18) mg/dl Creatinine (0.6-1.4) mg/dl Est Cr Clr Drug Dosing ml/min Est GFR ( Amer) Est GFR (Non-Af Amer) BUN/Creatinine Ratio (10-20) Glucose (70-99) mg/dl Calcium (8.5-10.1) mg/dl Magnesium (1.8-2.4) mg/dl Random Vancomycin 16.3 mcg/ml 08/29/18 Range/Units 06:15 WBC (4.8-10.8) K/uL RBC (4.7-6.1) M/uL Hgb (14.0-18.0) g/dL Hct (42-52) % MCV (80-100) fL MCH (25-34) pg MCHC (32-36) g/dL RDW Std Deviation (36.4-46.3) fL RDW Coeff of Eulalia (11.5-14.5) % Plt Count (130-400) K/uL Absolute Nucleated RBC (0-0) K/uL Nucleated RBC % (auto) % Neutrophils % (Manual) % Lymphocytes % (Manual) % Monocytes % (Manual) % Eosinophils % (Manual) % Basophils % (Manual) % Neutrophils # (Manual) (1.4-6.5) K/uL Total Absolute Neuts (1.4-6.5) K/uL Lymphocytes # (Manual) (1.2-3.4) K/uL Total Abs Lymphocytes (1.2-3.4) K/uL Monocytes # (Manual) (0.11-0.59) K/uL Eosinophils # (Manual) (0-0.5) K/uL Basophils # (Manual) (0-0.2) K/uL Polychromasia Hypochromasia Poikilocytosis APTT (21.0-31.0) Seconds PTT Ratio Sodium 134 L (136-145) mmol/L Potassium 3.8 (3.5-5.1) mmol/L Chloride 94 L (98-107) mmol/L Carbon Dioxide 30 (21-32) mmol/L Anion Gap 10.0 (3-11) BUN 77 H (7-18) mg/dl Creatinine 4.45 H D (0.6-1.4) mg/dl Est Cr Clr Drug Dosing 13.8 ml/min Est GFR ( Amer) 13.2 Est GFR (Non-Af Amer) 11.4 BUN/Creatinine Ratio 17.3 (10-20) Glucose 85 (70-99) mg/dl Calcium 8.1 L (8.5-10.1) mg/dl Magnesium 2.8 H (1.8-2.4) mg/dl Random Vancomycin mcg/ml (1) Pneumonia Laterality: right Lung location: lower lobe of lung Pneumonia type: due to unspecified organism Qualified Code(s): J18.1 - Lobar pneumonia, unspecified organism
[2018-08-29] MEDS ORDERED: LORazepam 1 MG TAB SL PRN (14:28)
[2018-08-29 15:43] VITALS: TEMP 98.2
[2018-08-29 20:45] VITALS: BP 140/73; PULSE 91; O2SAT 91
[2018-08-29] MEDS: DONEPEZIL HCL 5 MG TAB PO SCH (21:42)
[2018-08-29] MEDS: TAMSULOSIN HCL 0.4 MG CAP PO SCH (21:43)
[2018-08-29] MEDS: ATORVASTATIN 40 MG TAB PO SCH (21:43)
[2018-08-29] MEDS: QUETIAPINE FUMARATE 25 MG TABLET PO SCH (21:45)
[2018-08-30] MEDS: MoRPHine SULFATE 5 MG/0.25 ML UDP PO PRN ×3 (02:21→09:08)
[2018-08-30] MEDS: LANSOPRAZOLE 30 MG SOLTAB PO SCH (09:00)
[2018-08-30] MEDS: METOPROLOL TARTRATE 25 MG TAB PO SCH ×2 (09:00→21:17)
[2018-08-30] MEDS: FOLIC ACID 1 MG TAB PO SCH (09:02)
[2018-08-30] MEDS: FINASTERIDE 5 MG TAB PO SCH (09:02)
[2018-08-30] MEDS: CEROVITE ADV FORMULA TAB PO SCH (09:03)
[2018-08-30] MEDS ORDERED: DOXYCYCLINE HYCLATE 100 MG CAP PO SCH (10:00)
[2018-08-30 10:43] LABS: Giant Platelets 1+
--- NOTE | 2018-08-30 11:00 | Nephrology Progress Note ---
Date of Service August 30, 2018 Assessment & Plan (1) LELE (acute kidney injury): -- Patient transitioned to comfort measures -- Appropriate care consistent with goals of care is being provided -- Nothing additional to add -- Nephrology will sign-off -- Please call with questions or concerns (2) CRI (chronic renal insufficiency): (3) Ischemic cardiomyopathy: (4) Cellulitis of left lower extremity: (5) Ischemia of left lower extremity: Subjective Patient transitioned to comfort measures. Dialysis not to be considered part of plan of care. Review of Systems Review of Systems: Unobtainable due to cognitive status Physical Exam Constitutional: + cachectic, + frail appearing and + in distress Eyes: no scleral abnormality and no corneal abnormality ENMT: Mouth: + dry oral mucous membranes; no oral mucosal abnormality Neck: trachea midline Thyroid: normal thyroid Respiratory: no respiratory distress Auscultation: + diminished lung sounds and + rales Cardiovascular: Heart Sounds: normal S1 and normal S2; no murmur and no cardiac rub Vessels: + JVD Extremities: no edema Gastrointestinal (Abdomen): Percussion/Palpation: abdomen soft; abdomen nontender Musculoskeletal: Extremities: no cyanosis and no clubbing Skin: + turgor decreased; no rashes Neurologic: Motor/Sensory: no tremor and no asterixis Psychiatric: Eye Contact: + poor eye contact
--- NOTE | 2018-08-30 13:48 | Palliative Care Progress Note ---
Date of Service August 30, 2018 Assessment & Plan (1) Goals of care, counseling/discussion: -83 year old male patient with PMH dementia, HTN, hypercholesterolemia, PVD, prostate cancer, dysphagia, presented to the hospital four days ago with c/o increased SOB, LLE swelling and pain. He presented from the [facility] where he was apparently at for some rehab. Upon admission, patient's LLE found to be ischemic, venous doppler showed occlusion. Vascular surgery consulted who deemed patient a poor surgical candidate, but stated that the leg may need to be amputated. Troponin was elevated at the time of admission, also found to have paroxysmal afib. Cardiology consulted as well. Echocardiogram showed severely reduced left ventricular systolic function, large area of akinesis of the anterior wall and apex, all other hall hypokinetic, and an EF of 20-25%. Creatinine elevated on admission, patient does have reported history CKD. Creatinine has continued to rise from 2.32 to 4.45 today. Poor urine output-- could be cardiorenal syndrome. Patient was on Eliquis prior to arrival, so he is being bridged at this time with heparin gtt. He is on IV abx for LLE infection/cellulitis, MRSA positive in nares. On Zosyn and Vanc. Given patient's many comorbidities including heart failure, worsening renal failure, advanced dementia, and poor functional status. Patient transitioned to comfort measures on 08/29. -Patient opens his eyes to voice, but no meaningful conversation. No family at the bedside during my visit. -Patient did have an 11-beat run of VTach over past 12 hours. Appears hemodynamics/VS remain stable. BP 140/73, SpO2 94% on 4 LNC, T 98.3, pulse 76. -If patient remains stable and able to transfer out of hospital, family would like him to go to a facility closer to where they are, referrals placed at [facility] which is a SNF near [facility]; however, no authorization has been made as of now. Patient, at this time, will remain here through the weekend. -Will convert PRN morphine to Roxanol 5mg PO/SL Q3h PRN pain or SOB to be sure patient can be managed on PO medications. I have a low threshold to stop non- essential medications if patient swallowing ability worsens. -Continue Akins catheter for comfort. -POLST form completed as follows: DNR, comfort measures only, abx with comfort as the goal, no artificial hydration/nutrition. Signed by son, Jairon Olivo. -If patient would be discharged today, I would feel comfortable with him transitioning to a SNF post discharge. That being said, patient easily could decline over the weekend, changing this perception. If patient is set to be transferred on Sunday or Sunday, I would want to re-evaluate again to determine level of appropriateness. -PPS 20%. (2) LELE (acute kidney injury): (3) CHF (congestive heart failure): (4) Ischemic cardiomyopathy: (5) Ischemia of left lower extremity: (6) Pneumonia: Subjective Patient transitioned to comfort measures. No family at the bedside. Referrals are being plaed for SNF near [place] called [facility]. Pt had an 11 beat run of Vtach overnight. Patient hemodynamically stable since. Review of Systems Review of Systems: Unobtainable due to cognitive status (Patient openes his eye, but at this time, unable to answer questions.) Constitutional: no weakness Physical Exam Physical Exam: pt lying in his bed, opens eyes to voice Constitutional: + ill appearing and comfortable Eyes: PERRL, conjunctivae normal, anicteric sclerae ENMT: external ear and nose normal, oropharynx normal Neck: trachea midline, no thyromegaly Respiratory: Auscultation: + diminished lung sounds and + wheezes (expiratory) Cardiovascular: Rate/Rhythm: regular rate and regular rhythm Heart Sounds: normal S1 and normal S2 Vessels: normal peripheral pulses Extremities: no edema Gastrointestinal (Abdomen): normal bowel sounds, soft, nontender, no hepatosplenomegaly Skin: left foot toes purple/mottled/ No mottling on knees or right foot. Genitourinary: + akins and is making dark yellow urine Time Spent Midlevel Total time spent 25 minutes with > 50% of that time spent assessing patients symptoms and medication management (1) Pneumonia Laterality: right Lung location: lower lobe of lung Pneumonia type: due to unspecified organism Qualified Code(s): J18.1 - Lobar pneumonia, unspecified organism
[2018-08-30] MEDS: SODIUM CHLORIDE 0.65% NA SOLN 45 ML (OCEAN) SCH (14:22)
--- NOTE | 2018-08-30 14:32 | Infectious Disease Progress Nt ---
Date of Service August 30, 2018 Assessment & Plan (1) Cellulitis of left lower extremity: Patient with left lower extremity ischemia with open wounds with secondary cellulitis. Found to have inoperable vascular compromise. Family has decided on palliative care, antibiotics have been discontinued. We will therefore hold further infectious disease follow-up. Please contact me if I can provide any further assistance. (2) Ischemia of left lower extremity: Subjective Patient transitioned to comfort measures. Antibiotics have been discontinued. Review of Systems Review of Systems: Unobtainable due to cognitive status Physical Exam Constitutional: WD/WN, vitals as above comfortable; no acute distress Eyes: PERRL, conjunctivae normal, anicteric sclerae ENMT: external ear and nose normal, oropharynx normal Neck: trachea midline, no thyromegaly neck nontender Respiratory: normal respiratory effort, lungs clear to auscultation normal percussion; does not use accessory muscles Cardiovascular: Rate/Rhythm: regular rate and regular rhythm Heart Sounds: normal S1 and normal S2; no gallop, no murmur and no cardiac rub Vessels: no JVD Gastrointestinal (Abdomen): normal bowel sounds, soft, nontender, no hepatosplenomegaly Musculoskeletal: no cyanosis or clubbing, extremities motor strength 5/5 Spine: thoracic spine normal to inspection and lumbar spine normal to inspection; no cervical spinal tenderness Skin: no rashes, warm and dry normal turgor Neurologic: moves all extremities; no focal motor deficits Psychiatric: Orientation: alert and cooperative Lymphatic: no cervical or axillary lymphadenopathy no inguinal lymphadenopathy Results & Data Laboratory Results Laboratory Results - last 48 hr 08/28/18 08/29/18 08/29/18 14:04 06:15 06:15 WBC RBC Hgb Hct MCV MCH MCHC RDW Std Deviation RDW Coeff of Eulalia Plt Count Absolute Nucleated RBC Nucleated RBC % (auto) Neutrophils % (Manual) Lymphocytes % (Manual) Monocytes % (Manual) Eosinophils % (Manual) Basophils % (Manual) Neutrophils # (Manual) Total Absolute Neuts Lymphocytes # (Manual) Total Abs Lymphocytes Monocytes # (Manual) Eosinophils # (Manual) Basophils # (Manual) Giant Platelets Polychromasia Hypochromasia Poikilocytosis APTT 56.1 H* 49.3 H* PTT Ratio 2.1 1.8 Sodium 134 L Potassium 3.8 Chloride 94 L Carbon Dioxide 30 Anion Gap 10.0 BUN 77 H Creatinine 4.45 H D Est Cr Clr Drug Dosing 13.8 Est GFR ( Amer) 13.2 Est GFR (Non-Af Amer) 11.4 BUN/Creatinine Ratio 17.3 Glucose 85 Calcium 8.1 L Magnesium 2.8 H Stl C. diff Tox B Gene Random Vancomycin 08/29/18 08/29/18 08/30/18 06:15 06:15 01:30 WBC 15.79 H RBC 4.40 L Hgb 9.7 L Hct 33.2 L MCV 75.5 L MCH 22.0 L MCHC 29.2 L RDW Std Deviation 77.6 H RDW Coeff of Eulalia 28.3 H Plt Count 244 Absolute Nucleated RBC 0.36 H Nucleated RBC % (auto) 2.3 Neutrophils % (Manual) 67.0 Lymphocytes % (Manual) 15.0 Monocytes % (Manual) 5.0 Eosinophils % (Manual) 5.0 Basophils % (Manual) 8.0 Neutrophils # (Manual) 10.58 H Total Absolute Neuts 10.58 H Lymphocytes # (Manual) 2.37 Total Abs Lymphocytes 2.37 Monocytes # (Manual) 0.79 H Eosinophils # (Manual) 0.79 H Basophils # (Manual) 1.26 H Giant Platelets 1+ Polychromasia 1+ Hypochromasia Present Poikilocytosis Present APTT PTT Ratio Sodium Potassium Chloride Carbon Dioxide Anion Gap BUN Creatinine Est Cr Clr Drug Dosing Est GFR ( Amer) Est GFR (Non-Af Amer) BUN/Creatinine Ratio Glucose Calcium Magnesium Stl C. diff Tox B Gene Negative Cdiff Gene Random Vancomycin 16.3 Diagnostic Findings Microbiology 08/25/18 03:04 Blood Blood Culture - Final No growth 08/25/18 01:35 Blood Blood Culture - Final No growth 08/27/18 20:30 Urine,Indwelling Cath Urine Culture - Final Kathe albicans
--- NOTE | 2018-08-30 19:14 | Hospitalist Progress Note ---
Date of Service August 30, 2018 Assessment & Plan (1) Ischemia of left lower extremity: per report: PAD with ischemia of left lower extremity/cellulitis left lower extremity due to occlusion acutely of left posterior tibial and dorsalis pedis arteries Too high risk for intervention endovascularly due to renal failure as per Vascular comfort measures only given his worsening renal function and congestive heart failure-he would be extremely high risk for any kind of surgery Leukocytosis worsening and likely secondary to ischemic limb, has discontinue vancomycin IV and Zosyn IV as moving towards comfort measures has discontinue heparin infusion and will not restart home Eliquis APpreciate infectious disease and palliative care consultation Continue pain control with tylenol, morphine/Roxanol Continue lorazepam as needed for agitation i agree: comfort measures only but will continue usual home medicines except for the Eliquis until patient not able to take pills by mouth daily (2) Cellulitis of left lower extremity: Now is comfort measures only (3) Peripheral vascular disease: As above. Now is comfort measures only (4) LELE (acute kidney injury): Creatinine continued to rise to 4.7, has developed significant oliguria Comfort measures only (5) Pneumonia: Pneumonia/pleural effusion-was unclear if this was a true pneumonia versus just pleural effusion from CHF Comfort measures only (6) NSTEMI (non-ST elevated myocardial infarction): Troponin on admission was 0.899, mild elevation and trended, flat curve Myocardial demand ischemia. Comfort measures only (7) Hypercholesteremia: discontinued atorvastatin as no benefit at this point (8) Dementia: advanced, comfort measures only (9) HTN (hypertension): Comfort measures only (10) GERD (gastroesophageal reflux disease): continue PPI for comfort (11) C. 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 Subjective Patient is sleepy, comfortable, on oxygen, no acute distress or any signs of uncomfortable of pain, Review of Systems Review of Systems: Unobtainable due to reduced consciousness Physical Exam Physical Exam: Constitutional, no f/c, in sleep comfortable; no acute distress Eyes PERRL, conjunctivae normal, anicteric sclerae ENMT external ear and nose normal, oropharynx normal Neck trachea midline, no thyromegaly Respiratory: normal respiratory effort, lungs clear to auscultation Cardiovascular: S1, S2, regular rate and regular rhythm Gastrointestinal: normal bowel sounds, soft, no hepatosplenomegaly Musculoskeletal: no cyanosis or clubbing, Skin: no rashes, warm and dry Neurologic: moves all extremities; left facial droop when sleep Psychiatric: Nursing staff reported he was able to taking the pill when he wake up (1) Pneumonia Laterality: right Lung location: lower lobe of lung Pneumonia type: due to unspecified organism Qualified Code(s): J18.1 - Lobar pneumonia, unspecified organism
[2018-08-30] MEDS: TAMSULOSIN HCL 0.4 MG CAP PO SCH (21:17)
[2018-08-30] MEDS: QUETIAPINE FUMARATE 25 MG TABLET PO SCH (21:18)
[2018-08-31] MEDS: MoRPHine SULFATE 5 MG/0.25 ML UDP PO PRN ×2 (04:58→10:03)
[2018-08-31] MEDS: FOLIC ACID 1 MG TAB PO SCH (09:50)
[2018-08-31] MEDS: CEROVITE ADV FORMULA TAB PO SCH (09:51)
[2018-08-31] MEDS: LANSOPRAZOLE 30 MG SOLTAB PO SCH (09:51)
[2018-08-31] MEDS: METOPROLOL TARTRATE 25 MG TAB PO SCH ×2 (09:52→20:09)
[2018-08-31] MEDS: FINASTERIDE 5 MG TAB PO SCH (09:53)
[2018-08-31] MEDS: SODIUM CHLORIDE 0.65% NA SOLN 45 ML (OCEAN) SCH (10:05)
[2018-08-31] MEDS ORDERED: LORazepam 1 MG TAB SL PRN (11:10)
[2018-08-31] MEDS ORDERED: MoRPHine SULFATE 5 MG/0.25 ML UDP PO PRN (11:10)
[2018-08-31] MEDS: MoRPHine SULFATE 4 MG/ML 1 ML CARP\\VIAL IV PRN ×2 (11:20→23:50)
[2018-08-31] MEDS: LIDOCAINE 2% JELLY 5 ML TUBE EXT PRN (11:52)
[2018-08-31] MEDS ORDERED: SENNA 17.6 MG/10 ML UDP PO PRN (14:34)
[2018-08-31] MEDS ORDERED: BISACODYL 10 MG SUPP PR PRN (14:34)
--- NOTE | 2018-08-31 17:55 | Hospitalist Progress Note ---
Date of Service August 31, 2018 Assessment & Plan (1) Ischemia of left lower extremity: PAD with ischemia of left lower extremity/cellulitis left lower extremity due to occlusion acutely of left posterior tibial and dorsalis pedis arteries Too high risk for intervention endovascularly due to renal failure as per Vascular comfort measures only given his worsening renal function, congestive heart failure In general condition Leukocytosis worsening and likely secondary to ischemic limb, has discontinue vancomycin IV and Zosyn IV as moving towards comfort measures has discontinue heparin infusion and will not restart home Eliquis Appreciate infectious disease and palliative care consultation Continue pain control with tylenol, morphine/Roxanol, I have increased the frequency of oral morphine and has IV morphine available Continue lorazepam as needed for agitation Per request from family,comfort measures only but will continue usual home medicines except for the Eliquis until patient not able to take pills by mouth daily Possible need to talk to family again because patient mostly only partially able to take p.o. med, It is no point/meaning for us to do so (2) Cellulitis of left lower extremity: Now is comfort measures only (3) Peripheral vascular disease: As above. Now is comfort measures only (4) LELE (acute kidney injury): Creatinine continued to rise to 4.7, has developed significant oliguria Comfort measures only (5) Pneumonia: Pneumonia/pleural effusion-was unclear if this was a true pneumonia versus just pleural effusion from CHF Comfort measures only (6) NSTEMI (non-ST elevated myocardial infarction): Troponin on admission was 0.899, mild elevation and trended, flat curve Myocardial demand ischemia. Comfort measures only (7) Hypercholesteremia: discontinued atorvastatin as no benefit at this point (8) Dementia: advanced, comfort measures only (9) HTN (hypertension): Comfort measures only (10) GERD (gastroesophageal reflux disease): continue PPI for comfort (11) C. 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 Review of Systems Review of Systems: Unobtainable due to reduced consciousness Physical Exam Physical Exam: Constitutional, no f/c, ill looking, sick, moaning Eyes PERRL, conjunctivae normal, anicteric sclerae ENMT external ear and nose normal, oropharynx normal Neck trachea midline, no thyromegaly Respiratory: normal respiratory effort, lungs clear to auscultation Cardiovascular: S1, S2, regular rate and regular rhythm Gastrointestinal: mild distended, decreased bowel sounds, soft, no hepatosplenomegaly Musculoskeletal: no cyanosis or clubbing, Skin: Ecchymosis changes in the lower back skin, right posterior left lower extremity has open wound, Neurologic: moves all extremities; mild left facial droop when sleep Psychiatric: Nursing staff reported he was able to taking the pill when he wake up Results & Data Vital Signs (Past 12 Hours) old lab reviewed, no new lab, (1) Pneumonia Laterality: right Lung location: lower lobe of lung Pneumonia type: due to unspecified organism Qualified Code(s): J18.1 - Lobar pneumonia, unspecified organism
[2018-08-31] MEDS ORDERED: Nursing to Pharmacy Communication ONE (20:03)
[2018-08-31] MEDS: QUETIAPINE FUMARATE 25 MG TABLET PO SCH (20:08)
[2018-08-31] MEDS: TAMSULOSIN HCL 0.4 MG CAP PO SCH (20:11)
[2018-08-31] MEDS ORDERED: DOCUSATE SODIUM 100 MG CAP PO SCH (21:00)
[2018-08-31] MEDS ORDERED: DOCUSATE SODIUM SYRUP 100 MG/10 ML UDC PO SCH (21:00)
--- NOTE | 2018-09-04 19:42 | Discharge Summary ---
Date of Service September 04, 2018 Admission HPI Per Admitting Provider The patient is an 83-year-old male, presently residing at [facility] for rehab of his left knee, when he was found to have swelling of lower extremities, with redness and discomfort associated with a wound of left lower extremity. The patient is not able to contribute to his HPI or review of systems, due to altered mental status. Principal Diagnosis ischemic vessel disease Discharge Data Allergies Allergy/AdvReac Type Severity Reaction Status Date / Time No Known Allergies Allergy Unverified 08/25/18 02:56 Consultations 08/25/18 02:58 ED Decision to Admit Stat 08/25/18 05:27 Consult Case Management - Discharge Planning Routine Consult Infectious Diseases Routine 08/25/18 07:47 Consult Vascular Surgery Routine 08/25/18 07:54 Consult Cardiology Routine 08/27/18 13:46 Consult Nephrology Routine 08/28/18 15:29 Consult Palliative Care Routine Ordered Studies 08/25/18 05:27 US arterial duplex LE BI Stat 08/26/18 11:40 FL video swallow Routine Hospital Course (1) Ischemia of left lower extremity: PAD with ischemia of left lower extremity/cellulitis left lower extremity due to occlusion acutely of left posterior tibial and dorsalis pedis arteries Too high risk for intervention endovascularly due to renal failure as per Vascular comfort measures only given his worsening renal function, congestive heart failure In general condition Leukocytosis worsening and likely secondary to ischemic limb, has discontinue vancomycin IV and Zosyn IV as moving towards comfort measures has discontinue heparin infusion and will not restart home Eliquis Appreciate infectious disease and palliative care consultation Continue pain control with tylenol, morphine/Roxanol, I have increased the frequency of oral morphine and has IV morphine available Continue lorazepam as needed for agitation Per request from family,comfort measures only but will continue usual home medicines except for the Eliquis until patient not able to take pills by mouth daily Possible need to talk to family again because patient mostly only partially able to take p.o. med, It is no point/meaning for us to do so per record , pt on 09/01/18 05:30 (created 09/01/18 06:22) - Nurse Note by Karolina Villeda RN I was not the physicician to pronounce, I just the to finish up medical record. (2) Cellulitis of left lower extremity: Now is comfort measures only (3) Peripheral vascular disease: As above. Now is comfort measures only (4) LELE (acute kidney injury): Creatinine continued to rise to 4.7, has developed significant oliguria Comfort measures only (5) Pneumonia: Pneumonia/pleural effusion-was unclear if this was a true pneumonia versus just pleural effusion from CHF Comfort measures only (6) NSTEMI (non-ST elevated myocardial infarction): Troponin on admission was 0.899, mild elevation and trended, flat curve Myocardial demand ischemia. Comfort measures only (7) Hypercholesteremia: discontinued atorvastatin as no benefit at this point (8) Dementia: advanced, comfort measures only (9) HTN (hypertension): Comfort measures only (10) GERD (gastroesophageal reflux disease): continue PPI for comfort (11) C. 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 (17) DVT prophylaxis: WELDING INSPECTOR, need to talk to [facility] Hospice care Inpatient or in penitentiary if patient still alive on Sunday Total Time Total Time Spent Total Time Spent (In Minutes): 10 none billable Discharge Plan Discharge Items Patient Disposition: Admission Data Admit Date/Time: 08/25/18 04:03 Attending Provider: Randy Khan Admit Provider: Jack Theodore Primary Care Provider: Page Tillman Other Providers: Josh Khanna ; Orlando Andrews ; Yogesh Olmstead ; Krystle Thomas ; Pete Bejarano ; Jack Theodore ; Meagan Claros Service: Medical Other [place] Date/Time DO NOT enter until pt leaves facility: 09/01/18 06:20
== END 2018-09-01 06:20 | disposition expired | DRG 602 ==
LOC: ED 01:07 → SUATTDRO 04:03 → 2S 04:03 → 4W 08-29 14:21